=== PATIENT | male | born 1965 | race African-American/Black ===

== ENCOUNTER 2017-02-20 22:51 | Inpatient (IN) | payer OTHER ==
--- NOTE | 2017-02-20 23:34 | ER Document Report ---
ED General <JANUSZ PEÑALOZA - Last Filed: 02/21/17 08:05> - General TRAVEL OUTSIDE OF THE [place] IN LAST 30 DAYS: No <MAITE BARNES - Last Filed: 02/21/17 19:01> - General Chief Complaint: Abnormal Lab Results Stated Complaint: POSSIBLE LOW POTASSIUM Time Seen by Provider: 02/20/17 23:14 Notes: Patient is a 52-year-old male who comes emergency department for chief complaint of low potassium, he states he was seen by his provider today, they called him and told him to come the emergency department. He states he has had over a week of daily diarrhea, sometimes up to 10 times a day. He takes no daily medications other than as needed medications for asthma. He denies any recent travel, fever, sick contacts, suspicious foods, or recent antibiotics. He states he was given amoxicillin today to begin taking for his diarrhea. He has had a colonoscopy in the past which was normal. (MAITE BARNES) - Related Data Allergies/Adverse Reactions: Sulfa (Sulfonamide Antibiotics) Allergy (Verified 07/19/14 16:24) Generalized rash Home Medications: Current Home Medications Albuterol Sulfate [Ventolin HFA MDI 18 GM] 2 puff IH Q4HP PRN 02/21/17 [History] Pantoprazole Sodium [Protonix] 40 mg PO DAILY 02/21/17 [History] Past Medical History - General Information source: Patient - Social History Smoking Status: Current Every Day Smoker Frequency of alcohol use: Occasional Lives with: Family Family History: None Pulmonary Medical History: Reports: Hx Asthma, Hx Bronchitis, Hx COPD, Hx Pneumonia Neurological Medical History: Denies: Hx Cerebrovascular Accident Endocrine Medical History: Denies: Hx Diabetes Mellitus Type 1, Hx Diabetes Mellitus Type 2 Renal/ Medical History: Denies: Hx Peritoneal Dialysis Infectious Medical History: Reports: Hx MRSA Past Surgical History: Reports: Hx Orthopedic Surgery - right knee - Immunizations Hx Diphtheria, Pertussis, Tetanus Vaccination: Yes <MAITE BARNES - Last Filed: 02/21/17 19:01> Review of Systems - Review of Systems Constitutional: No symptoms reported EENT: No symptoms reported Cardiovascular: No symptoms reported Respiratory: No symptoms reported Gastrointestinal: See HPI Genitourinary: No symptoms reported Male Genitourinary: No symptoms reported Musculoskeletal: No symptoms reported Skin: No symptoms reported Hematologic/Lymphatic: No symptoms reported Neurological/Psychological: No symptoms reported <MAITE BARNES - Last Filed: 02/21/17 19:01> Physical Exam - Vital signs Interpretation: Normal - General General appearance: Appears well, Alert In distress: None - Patient thin and slightly tired in appearance, however he is in no distress - HEENT Head: Normocephalic, Atraumatic Eyes: Normal Conjunctiva: Normal Extraocular movements intact: Yes Eyelashes: Normal Pupils: PERRL Sinus: Normal Nasal: Normal Mouth/Lips: Normal Mucous membranes: Normal Pharynx: Normal Neck: Normal - Respiratory Respiratory status: No respiratory distress Chest status: Nontender Breath sounds: Normal. No: Decreased air movement, Wheezing Chest palpation: Normal - Cardiovascular Rhythm: Regular. No: Tachycardia Heart sounds: Normal auscultation, S1 appreciated, S2 appreciated Murmur: No - Abdominal Inspection: Normal Distension: No distension Bowel sounds: Normal Tenderness: Nontender. No: Tender, Guarding - Abdomen is completely soft and benign, no rigidity, no tenderness, no guarding Organomegaly: No organomegaly - Back Back: Normal, Nontender. No: Tender, CVA tenderness - Extremities General upper extremity: Normal inspection, Nontender, Normal color, Normal ROM , Normal temperature General lower extremity: Normal inspection, Nontender, Normal color, Normal ROM , Normal temperature, Normal weight bearing. 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 Sensory: Normal - Psychological Associated symptoms: Normal affect, Normal mood - Skin Skin Temperature: Warm Skin Moisture: Dry Skin Color: Normal <MAITE BARNES - Last Filed: 02/21/17 19:01> - Vital signs Vitals: Temp Pulse Resp BP Pulse Ox 97.5 F 93 18 107/67 93 02/20/17 22:59 02/20/17 22:59 02/20/17 22:59 02/20/17 22:59 02/20/17 22:59 Course - Laboratory Result Diagrams: 02/21/17 00:10 02/21/17 00:10 <JANUSZ PEÑALOZA - Last Filed: 02/21/17 08:05> - Laboratory Result Diagrams: 02/21/17 00:10 02/21/17 16:26 <MAITE BARNES - Last Filed: 02/21/17 19:01> - Re-evaluation Re-evalutation: Patient has already had diarrhea twice after arriving here. CBC unremarkable, shows chronic anemia which is nonspecific. Chemistry is significant, shows hypokalemia at 1.9, hypocalcemia at 6.4, hypomagnesemia at 1.3. Patient will be given each, starting with magnesium. Patient able to give stool sample, unremarkable with no evidence of inflammatory diarrhea, negative C. difficile. Culture pending. Discussed with Dr. Paredes, confirmed treatments, recommends admission for continued electrolyte replacement especially with patient's ongoing diarrhea. Patient in agreement with this plan. 02/21/17 06:[address] Peñaloza at bedside. (MAITE BARNES) - Vital Signs Vital signs: Temp Pulse Resp BP Pulse Ox 98.2 F 78 18 98/67 L 98 02/21/17 15:49 02/21/17 15:49 02/21/17 15:49 02/21/17 15:49 02/21/17 15:49 - Laboratory Laboratory results interpreted by me: 02/21/17 02/21/17 00:10 00:10 RBC 3.41 L Hgb 10.0 L Hct 31.0 L RDW 15.3 H Sodium 135.7 L Potassium 1.9 L* Calcium 6.9 L* Magnesium 1.3 L Total Protein 4.1 L Albumin 2.4 L Discharge - Discharge Admitting Provider: Hospitalist - [facility] Unit Admitted: Telemetry <JANUSZ PEÑALOZA - Last Filed: 02/21/17 08:05> - Discharge Admitting Provider: Hospitalist Unit Admitted: Telemetry <MAITE BARNES - Last Filed: 02/21/17 19:01> - Discharge Clinical Impression: Hypokalemia, Hypomagnesemia Diarrhea Qualifiers: Diarrhea type: unspecified type Qualified Code(s): R19.7 - Diarrhea, unspecified Condition: Stable Disposition: ADMITTED INPATIENT
[2017-02-21 00:26] LABS: ABSOLUTE LYMPHOCYTES (AUTO) 1.2 10^3/uL (0.5-4.7); ABSOLUTE MONOCYTES (AUTO) 0.4 10^3/uL (0.1-1.4); ABSOLUTE NEUT (AUTO) 4.3 10^3/uL (1.7-8.2); BASOPHILS % (AUTO) 0.4 % (0-2); EOSINOPHILS % (AUTO) 0.3 % (0-6); LYMPHOCYTES % (AUTO) 20.2 % (13-45); MEAN CORPUSCULAR HEMOGLOBIN 29.3 pg (27.0-33.4); MEAN CORPUSCULAR HGB CONC 32.2 g/dL (32.0-36.0); MEAN CORPUSCULAR VOLUME 91 fl (80-97); MONOCYTES % (AUTO) 7.4 % (3-13); RED BLOOD COUNT 3.41 10^6/uL (4.35-5.55); RED CELL DISTRIBUTION WIDTH 15.3 % (11.5-14.0); SEGMENTED NEUTROPHILS % (AUTO) 71.7 % (42-78); WHITE BLOOD COUNT 5.9 10^3/uL (4.0-10.5)
[2017-02-21 00:40] LABS: ALANINE AMINOTRANSFERASE 59 U/L (21-72); ALBUMIN 2.4 g/dL (3.5-5.0); ALKALINE PHOSPHATASE 89 U/L (38-126); ANION GAP 8 (5-19); ASPARTATE AMINO TRANSFERASE 33 U/L (17-59); BILIRUBIN,DIRECT 0.2 mg/dL (0.0-0.4); BILIRUBIN,TOTAL 0.5 mg/dL (0.2-1.3); BLOOD UREA NITROGEN 10 mg/dL (7-20); CARBON DIOXIDE 27 mmol/L (22-30); CHLORIDE 101 mmol/L (98-107); CREATININE RESULT 0.59 mg/dL (0.52-1.25); GLUCOSE 94 mg/dL (75-110); MAGNESIUM 1.3 mg/dL (1.6-2.3); SODIUM 135.7 mmol/L (137-145); TOTAL PROTEIN 4.1 g/dL (6.3-8.2)
[2017-02-21 00:57] LABS: CALCIUM 6.9 mg/dL (8.4-10.2); POTASSIUM 1.9 mmol/L (3.6-5.0)
[2017-02-21] MEDS: MAGNESIUM SULFATE/D5W 100 ML IV SCH ×2 (01:11→01:29)
[2017-02-21] MEDS ORDERED: CALCIUM GLUCONATE 1000 MG/10 ML INJ IV ONE (01:37)
[2017-02-21] MEDS: POTASSI CL 20 MEQ/50 ML RIDER 50 ML IV SCH ×2 (01:48→04:03)
[2017-02-21] MEDS ORDERED: POTASSIUM CHLORIDE 10 MEQ TABLET.SA PO ONE (06:10)
--- NOTE | 2017-02-21 08:08 | EKG REPORT ---
SEVERITY:- BORDERLINE ECG - SINUS RHYTHM BORDERLINE T ABNORMALITIES, DIFFUSE LEADS PROLONGED QT INTERVAL. : Confirmed by: Clinton Resendez MD 21-Feb-2017 08:07:55
[2017-02-21] MEDS ORDERED: ACETAMINOPHEN 325 MG TABLET PO PRN (08:23)
[2017-02-21] MEDS ORDERED: RINGERS SOLUTION,LACTATED 1,000 ML IV PRN (08:23)
[2017-02-21] MEDS ORDERED: ONDANSETRON HCL INJ/PF 4 MG/2 ML SDV IV PRN (08:23)
[2017-02-21 09:16] LABS: ANION GAP 5 (5-19); BLOOD UREA NITROGEN 9 mg/dL (7-20); CALCIUM 7.2 mg/dL (8.4-10.2); CARBON DIOXIDE 30 mmol/L (22-30); CHLORIDE 102 mmol/L (98-107); CREATINE KINASE 77 U/L (55-170); CREATININE RESULT 0.68 mg/dL (0.52-1.25); GLUCOSE 71 mg/dL (75-110); LIPASE 13.2 U/L (23-300); PHOSPHORUS 1.7 mg/dL (2.5-4.5); SODIUM 136.7 mmol/L (137-145)
[2017-02-21 09:18] LABS: AMYLASE < 30 U/L (30-110)
[2017-02-21 09:23] LABS: PREALBUMIN 7.3 mg/dL (17.6-36.0)
[2017-02-21 09:29] LABS: PROTHROMBIN TIME 13.5 SEC (11.4-15.4)
[2017-02-21 09:30] LABS: PARTIAL THROMBOPLASTIN TIME 38.4 SEC (23.5-35.8)
[2017-02-21] MEDS: ENOXAPARIN SODIUM INJ 40 MG/0.4 ML DISP.SYRIN SUBCUT SCH (09:40)
[2017-02-21 09:43] LABS: POTASSIUM 2.3 mmol/L (3.6-5.0)
[2017-02-21 10:24] LABS: FOLATE 4.24 ng/mL (>2.76)
[2017-02-21] MEDS ORDERED: POTASSIUM PHOS,M-BASIC-D-BASIC 15 MMOL in NORMAL SALINE 250 ML IV ONE (11:30)
[2017-02-21] MEDS: POTASSI CL 20 MEQ/50 ML RIDER 20 MEQ/50 ML RTUPB IV SCH ×2 (13:28→16:23)
--- NOTE | 2017-02-21 14:45 | PDOC H&P ---
History of Present Illness Admission Date/PCP: 02/21/17 08:23 Patient complains of: weakness History of Present Illness: AMERICA ANDERSON is a 52 year old male presents to the ED from home at the [facility] when his recent blood work came back abnormal with a critically low potassium level. 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 He underwent upper and lower endoscopy earlier this year to evaluate these symptoms but other than a benign polyp no abnl found He's had no sick contacts, incarceration, hemoptysis, melena, hematochezia, night sweats, swollen glands. says he was tested for HIV, Hepatitis and TB and all came back negative. He is undergoing continued evaluation for all this via the [facility] with upcoming referrals and consultations next week. eval in ED confirmed severe electrolyte abnl's and we were asked to admit for further eval and management. He would prefer to let the [facility] continue to finish the workup if we would just fix the lab abnl's. Past Medical History Pulmonary Medical History: Reports: Asthma, Bronchitis, Chronic Obstructive Pulmonary Disease (COPD), Pneumonia Endocrine Medical History: Denies: Diabetes Mellitus Type 1, Diabetes Mellitus Type 2 Psychiatric Medical History: Denies: Depression Infectious Medical History: Reports: Methicillin-Resistant Staph Aureus Past Surgical History Past Surgical History: Reports: Orthopedic Surgery - right knee Social History Information Source: Patient Lives with: Family Smoking Status: Former Smoker Cigarettes Packs Per Day: 0 Cigars Per Day: 0 Frequency of Alcohol Use: None Hx Recreational Drug Use: Yes Drugs: Marijuana Hx Prescription Drug Abuse: No - Advance Directive Resuscitation Status: Full Code Family History Family History: None, DM Parental Family History Reviewed: Yes Children Family History Reviewed: Yes Sibling(s) Family History Reviewed.: Yes Medication/Allergy Home Medications: Albuterol Sulfate [Ventolin HFA MDI 18 GM] 2 puff IH Q4HP PRN 02/21/17 Pantoprazole Sodium [Protonix] 40 mg PO DAILY 02/21/17 Allergies/Adverse Reactions: Sulfa (Sulfonamide Antibiotics) Allergy (Verified 07/19/14 16:24) Generalized rash Review of Systems All systems: reviewed and no additional remarkable complaints except as stated - all systems reviewed, see HPI, remaining systems negative Physical Exam Vital Signs: Temp Pulse Resp BP Pulse Ox 97.7 F 74 15 98/70 L 99 02/21/17 12:13 02/21/17 14:00 02/21/17 12:13 02/21/17 12:13 02/21/17 12:13 Intake & Output 02/20/17 02/21/17 02/22/17 06:59 06:59 06:59 Weight 52.617 kg General appearance: PRESENT: thin, well-developed Head exam: PRESENT: atraumatic, normocephalic Eye exam: PRESENT: EOMI. ABSENT: conjunctival injection, scleral icterus Teeth exam: PRESENT: poor dentation Neck exam: PRESENT: full ROM. ABSENT: carotid bruit, JVD, lymphadenopathy, meningismus, tenderness, thyromegaly, tracheal deviation Respiratory exam: PRESENT: clear to auscultation jackelyn. ABSENT: accessory muscle use, unlabored Cardiovascular exam: PRESENT: RRR. ABSENT: diastolic murmur, systolic murmur Pulses: PRESENT: normal radial pulses, normal dorsalis pedis pul Vascular exam: PRESENT: normal capillary refill GI/Abdominal exam: PRESENT: normal bowel sounds, soft. ABSENT: mass, organolmegaly, tenderness Extremities exam: PRESENT: clubbing. ABSENT: calf tenderness, pedal edema Neurological exam: PRESENT: alert, awake, oriented to person, oriented to place , oriented to time, oriented to situation, reflexes normal Psychiatric exam: PRESENT: appropriate affect, normal mood Skin exam: PRESENT: dry, warm Results Laboratory Results: 02/21/17 08:47 02/21/17 02/21/17 08:47 08:47 Sodium 136.7 L Potassium 2.3 L* Chloride 102 Carbon Dioxide 30 Anion Gap 5 BUN 9 Creatinine 0.68 Est GFR ( Amer) > 60 Est GFR (Non-Af Amer) > 60 Glucose 71 L Calcium 7.2 L Phosphorus 1.7 L Prealbumin 7.3 L Amylase < 30 L Lipase 13.2 L Vitamin B12 > 1000.0 H Folate 4.24 TSH 1.02 02/21/17 08:47 Creatine Kinase 77 Assessment & Plan - Diagnosis (1) Diarrhea Qualifiers: Diarrhea type: unspecified type Qualified Code(s): R19.7 - Diarrhea, unspecified Is this a current diagnosis for this admission?: YesPlan: unclear etiology; f/u stool culture; ck am cortisol level, screen for DM, thyroid disease (2) Hypokalemia Is this a current diagnosis for this admission?: YesPlan: aggressively replenish and monitor frequently (3) Hypomagnesemia Is this a current diagnosis for this admission?: YesPlan: replace and monitor - Time Time Spent: 50 to 70 Minutes Medications reviewed and adjusted accordingly: Yes Anticipated discharge: Home Within: within 48 hours - Inpatient Certification Based on my medical assessment, after consideration of the patient's comorbidities, presenting symptoms, or acuity I expect that the services needed warrant INPATIENT care.: Yes I certify that my determination is in accordance with my understanding of Medicare's requirements for reasonable and necessary INPATIENT services [42 CFR 412.3e].: Yes Medical Necessity: Significant Comorbidiites Make Outpatient Treatment Too Risky , Need Close Monitoring Due to Risk of Patient Decompensation, Need For IV Fluids, Need For Continuous Telemetry Monitoring
[2017-02-21] MEDS: LANSOPRAZOLE 30 MG TAB.RAP.DR PO SCH (16:23)
[2017-02-21 16:54] LABS: ANION GAP 6 (5-19); BLOOD UREA NITROGEN 8 mg/dL (7-20); CALCIUM 7.1 mg/dL (8.4-10.2); CARBON DIOXIDE 26 mmol/L (22-30); CHLORIDE 104 mmol/L (98-107); CREATININE RESULT 0.59 mg/dL (0.52-1.25); GLUCOSE 80 mg/dL (75-110); SODIUM 135.7 mmol/L (137-145)
[2017-02-21 16:59] LABS: POTASSIUM 2.7 mmol/L (3.6-5.0)
[2017-02-21] MEDS: POTASSIUM CHLORIDE 10 MEQ TABLET.SA PO SCH (21:08)
[2017-02-21 23:12] LABS: ANION GAP 7 (5-19); BLOOD UREA NITROGEN 8 mg/dL (7-20); CALCIUM 7.4 mg/dL (8.4-10.2); CARBON DIOXIDE 28 mmol/L (22-30); CHLORIDE 101 mmol/L (98-107); CREATININE RESULT 0.61 mg/dL (0.52-1.25); GLUCOSE 89 mg/dL (75-110)
[2017-02-21 23:15] LABS: POTASSIUM 2.8 mmol/L (3.6-5.0)
[2017-02-21 23:27] LABS: ADD ON TESTING BLD IN LAB ACKNOWLEDGE
[2017-02-21 23:39] LABS: MAGNESIUM 1.8 mg/dL (1.6-2.3)
[2017-02-22] MEDS: POTASSIUM CHLORIDE 20 MEQ/15 ML UDCUP PO SCH ×4 (00:08→06:07)
[2017-02-22 05:38] LABS: HEMATOCRIT 38.6 % (37.9-51.0); HGB HCT DIFFERENCE -0.8; MEAN CORPUSCULAR HEMOGLOBIN 29.7 pg (27.0-33.4); MEAN CORPUSCULAR HGB CONC 32.5 g/dL (32.0-36.0); MEAN CORPUSCULAR VOLUME 91 fl (80-97); RED BLOOD COUNT 4.23 10^6/uL (4.35-5.55); RED CELL DISTRIBUTION WIDTH 15.9 % (11.5-14.0); WHITE BLOOD COUNT 10.7 10^3/uL (4.0-10.5)
[2017-02-22 05:39] LABS: ANION GAP 9 (5-19); BLOOD UREA NITROGEN 7 mg/dL (7-20); CALCIUM 7.6 mg/dL (8.4-10.2); CARBON DIOXIDE 25 mmol/L (22-30); CHLORIDE 105 mmol/L (98-107); CHOLESTEROL 69.61 mg/dL (0-200); CREATININE RESULT 0.58 mg/dL (0.52-1.25); Direct HDL 34 mg/dL (>40); GLUCOSE 83 mg/dL (75-110); HEMOGLOBIN 12.6 g/dL (13.5-17.0); MAGNESIUM 1.8 mg/dL (1.6-2.3); SODIUM 138.6 mmol/L (137-145); TRIGLYCERIDES 68 mg/dL (<150)
[2017-02-22 05:50] LABS: DIRECT LDL 35 mg/dL (<100)
[2017-02-22 06:02] LABS: POTASSIUM 3.7 mmol/L (3.6-5.0)
[2017-02-22] MEDS: LANSOPRAZOLE 30 MG TAB.RAP.DR PO SCH (06:07)
[2017-02-22] MEDS ORDERED: RINGERS SOLUTION,LACTATED 1,000 ML IV ONE (08:00)
[2017-02-22 09:09] VITALS: BP 104/63
[2017-02-22] MEDS ORDERED: MAGNESIUM OXIDE 400 MG TABLET PO SCH (10:00)
[2017-02-22] MEDS: POTASSIUM CHLORIDE 10 MEQ TABLET.SA PO SCH (10:55)
[2017-02-22] MEDS: ENOXAPARIN SODIUM INJ 40 MG/0.4 ML DISP.SYRIN SUBCUT SCH (11:24)
--- NOTE | 2017-02-22 12:21 | PDOC DISCHARGE SUMMARY ---
General - Admit/Disc Date/PCP Admission Date/Primary Care Provider: 02/21/17 08:23 Discharge Date: 02/22/17 - Discharge Diagnosis (1) Diarrhea Is this a current diagnosis for this admission?: YesSummary: persists and etiology is unclear; final stool culture is pending but initially nothing on Gm stain seen. workup already underway through the [facility] where he would like to allow them to take the lead in this. I recommended psyllium powder to slow his GI losses and f/u with GI as instructed next week. (2) Hypokalemia Is this a current diagnosis for this admission?: YesSummary: profound but resolved with replacement and 2/2 GI losses; Rx given for replacement, instructed to f/u /with PCP in one week for repeat testing (3) Hypomagnesemia Is this a current diagnosis for this admission?: YesSummary: severe and 2/2 GI losses, instructed to continue oral replacment and f/u with PCP in one week for repeat testing - Additional Information Resuscitation Status: Full Code Discharge Diet: As Tolerated Discharge Activity: Activity As Tolerated Home Medications: Albuterol Sulfate [Ventolin HFA MDI 18 GM] 2 puff IH Q4HP PRN 02/21/17 Pantoprazole Sodium [Protonix] 40 mg PO DAILY 02/21/17 Acetaminophen [Tylenol 325 mg Tablet] 650 mg PO Q4HP PRN tablet 02/22/17 Magnesium Oxide [Mag-Ox 400 mg Tablet] 400 mg PO BID tablet 02/22/17 Potassium Chloride [Klor-Con 10 Meq Tablet.sa] 40 meq PO Q12 30 Days 02/22/17 Psyllium Husk 1 gm MC BIDACBL #1 powder 02/22/17 History of Present Illness Patient complains of: weakness and abnormal labs History of Present Illness: AMERICA ANDERSON is a 52 year old male presents to the ED from home at the [facility] when his recent blood work came back abnormal with a critically low potassium level. 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 He underwent upper and lower endoscopy earlier this year to evaluate these symptoms but other than a benign polyp no abnl found He's had no sick contacts, incarceration, hemoptysis, melena, hematochezia, night sweats, swollen glands. says he was tested for HIV, Hepatitis and TB and all came back negative. [facility] with upcoming referrals and consultations next week. eval in ED confirmed severe electrolyte abnl's and we were asked to admit for further eval and management. [facility] if we would just fix the lab abnl's. he was admitted with aggressive IV and oral replenishment of his electrolytes which he tolerated without complication. He feels significantly better this morning and his lytes have rapidly improved and stabilized surprising even me. I think he can maintain these levels at home now with oral replacement and he wants to go home. He is stable for d/c at this time. His stool culture is still pending, cdiff was neg, initial stool Gm stain shows no pathogen and no leukocytes, heme negative, Hep ABC still pending, HIV screen pending. [facility], has stool cards and collectors at home due to return early next week and already has [facility]. he is to return to the ED for recurernt or worsening symptoms. Physical Exam Vital Signs: Temp Pulse Resp BP Pulse Ox 98.0 F 87 17 104/63 100 02/22/17 10:21 02/22/17 10:21 02/22/17 10:21 02/22/17 10:21 02/22/17 10:21 Intake & Output 02/21/17 02/22/17 02/23/17 06:59 06:59 06:59 Intake Total 3590 Output Total 300 Balance 3290 Weight 61.4 kg General appearance: PRESENT: thin, well-developed Head exam: PRESENT: atraumatic, normocephalic Eye exam: PRESENT: EOMI. ABSENT: conjunctival injection, scleral icterus Teeth exam: PRESENT: poor dentation Neck exam: PRESENT: full ROM. ABSENT: carotid bruit, JVD, lymphadenopathy, meningismus, tenderness, thyromegaly, tracheal deviation Respiratory exam: PRESENT: clear to auscultation jackelyn. ABSENT: accessory muscle use, unlabored Cardiovascular exam: PRESENT: RRR. ABSENT: diastolic murmur, systolic murmur Pulses: PRESENT: normal radial pulses, normal dorsalis pedis pul Vascular exam: PRESENT: normal capillary refill GI/Abdominal exam: PRESENT: normal bowel sounds, soft. ABSENT: mass, organolmegaly, tenderness Extremities exam: PRESENT: clubbing. ABSENT: calf tenderness, pedal edema Neurological exam: PRESENT: alert, awake, oriented to person, oriented to place , oriented to time, oriented to situation, reflexes normal Psychiatric exam: PRESENT: appropriate affect, normal mood Skin exam: PRESENT: dry, warm Results Laboratory Results: 02/22/17 04:53 02/22/17 04:53 02/21/17 02/21/17 02/21/17 16:26 22:48 22:48 WBC RBC Hgb Hct MCV MCH MCHC RDW Plt Count Sodium 135.7 L 136.0 L Potassium 2.7 L* 2.8 L* Chloride 104 101 Carbon Dioxide 26 28 Anion Gap 6 7 BUN 8 8 Creatinine 0.59 0.61 Est GFR ( Amer) > 60 > 60 Est GFR (Non-Af Amer) > 60 > 60 Glucose 80 89 Calcium 7.1 L 7.4 L Magnesium 1.8 Triglycerides Cholesterol LDL Cholesterol Direct VLDL Cholesterol HDL Cholesterol 02/22/17 02/22/17 04:53 04:53 WBC 10.7 H RBC 4.23 L Hgb 12.6 L D Hct 38.6 MCV 91 MCH 29.7 MCHC 32.5 RDW 15.9 H Plt Count 205 Sodium 138.6 Potassium 3.7 Chloride 105 Carbon Dioxide 25 Anion Gap 9 BUN 7 Creatinine 0.58 Est GFR ( Amer) > 60 Est GFR (Non-Af Amer) > 60 Glucose 83 Calcium 7.6 L Magnesium 1.8 Triglycerides 68 Cholesterol 69.61 LDL Cholesterol Direct 35 VLDL Cholesterol 14.0 HDL Cholesterol 34 L 02/21/17 08:47 Creatine Kinase 77 Qualifiers PATEINT BEING DISCHARGED WITH ANY OF THE FOLLOWING DIAGNOSIS?: No VTE patient discharged on overlapping Therapy?: No Reason(s) for not prescribing Overlap Therapy:: Not indicated Plan Discharge Plan: home with continue oral replacement of his lytes; start psyllium powder and monitor for response. f/u as instructed. Time Spent: Greater than 30 Minutes
== END 2017-02-22 12:10 | disposition home or self-care (01) | DRG 373 ==
LOC: ER 22:51 → EH 02-21 08:12 → UNDOADMIN 02-21 08:12 → 4S 02-21 08:23 → EH 02-21 09:20
PROVIDERS: ADMIT Internal Medicine; ATTEND Internal Medicine
DX: A04.5 Campylobacter enteritis (principal); E87.6 Hypokalemia; J44.9 Chronic obstructive pulmonary disease, unspecified; J45.909 Unspecified asthma, uncomplicated; E83.42 Hypomagnesemia; Z86.14 Personal history of Methicillin resistant Staphylococcus aureus infection; Z87.891 Personal history of nicotine dependence; Z83.3 Family history of diabetes mellitus; Z88.2 Allergy status to sulfonamides
CPT/HCPCS: 36415; 80048; 80053; 80061; 80074; 82150; 82272; 82533; 82550; 82607; 82746; 83036; 83690; 83735; 84100; 84134; 84443; 85025; 85027; 85610; 85730; 86701; 86702; 87045; 87077; 87205; 87493; 89055; 93005; 93010; 96365; 96366; 96367; 96375; 99284; J0610; J1650; J3475; J3480; J3490; J7050; J7120

== ENCOUNTER → 2017-04-08 | Outpatient (CLI) | payer OTHER ==
--- NOTE | 2017-04-08 15:06 | XCELERA REPORT ---
[address] [address] Lower Extremity Arterial Evaluation Name: AMERICA ANDERSON Age: 52 yrs Gender: Male : 1965 Patient Status: Outpatient Patient Location: Study Date: 04/08/2017 08:06 AM Procedure: A color flow and duplex scan of the lower extremity arteries was performed bilaterally with velocity and waveform analysis. Reason For Study: PAIN Ordering Physician: IZZY REDMAN Performed By: Ramsey Jacome Measurements and Calculations Right Left TOOL AND DIE ASSEMBLER PSV 70.2 46.2 cm/sec Prox PFA PSV -273.4 -133.6 cm/sec Dist SFA PSV -62.9 -49.9 cm/sec Dist Pop A PSV 40.5 36.0 cm/sec Dist ANNALISA PSV 36.8 36.2 cm/sec Dist COMPLIANCE MANAGER PSV 39.3 39.3 cm/sec Spencer Pedis PSV 44.0 35.4 cm/sec Right Side Arterial Evaluation Normal velocity and triphasic waveforms noted from the Common Femoral artery to the infregeniculate vessels. 0 % stenosis noted. Ankle Brachial index is 1.04. PPG's are multiphasic, somewhat attenuated, especially in first digit. Left Side Arterial Evaluation Normal velocity and triphasic waveforms noted from the Common Femoral artery to the infregeniculate vessels. 0 % stenosis noted. Ankle Brachial index is 1.20. PPG's are multiphasic, somewhat attenuated, especially in first three digits. Interpretation Summary No hemodynamically significant lesions in the bilateral lower extremities, on duplex imaging, at rest. PPG's are somewhat abnormal, this would require clinical correlation. : IZZY REDMAN > Vahid Douglas
== END ==
LOC: SP 07:44
PROVIDERS: ATTEND Physician Assistant Medical
DX: M79.671 Pain in right foot (principal); M79.672 Pain in left foot; R20.0 Anesthesia of skin
CPT/HCPCS: 93925

== ENCOUNTER 2017-11-24 09:32 | Emergency (ER) | payer OTHER ==
[2017-11-24] MEDS ORDERED: NORMAL SALINE 1000 ML 1,000 ML IV ONE (10:23)
--- NOTE | 2017-11-24 10:29 | ER Document Report ---
ED GI/ - General Chief Complaint: Abdominal Pain Stated Complaint: ABDOMINAL PAIN Time Seen by Provider: 11/24/17 10:12 Mode of Arrival: Ambulatory Information source: Patient Notes: 52-year-old male presents to ED for complaint of abdominal pain since Friday or Friday. He states he has had nausea vomiting and diarrhea. He states no vomiting today but he has been vomiting. He states he has been having multiple diarrhea stools each night. Common variable immune deficiency disorder TRAVEL OUTSIDE OF THE [place] IN LAST 30 DAYS: No - HPI Patient complains to provider of: Abdominal pain, Diarrhea, Vomiting Onset: Last week Timing/Duration: Intermittent Quality of pain: Achy, Sharp Severity at maximum: Moderate Severity in ED: Moderate Pain Level: 3 Location: LUQ, LLQ Associated symptoms: Diarrhea, Nausea Exacerbated by: Movement, Food Relieved by: Denies Similar symptoms previously: Yes Recently seen / treated by doctor: No - Related Data Allergies/Adverse Reactions: Sulfa (Sulfonamide Antibiotics) Allergy (Verified 11/24/17 09:33) Generalized rash Past Medical History - General Information source: Patient - Social History Smoking Status: Former Smoker Cigarette use (# per day): No Chew tobacco use (# tins/day): No Smoking Education Provided: No Frequency of alcohol use: None Drug Abuse: None Lives with: Family - Brother Family History: DM, Hypertension. denies: Arthritis, CAD, COPD, CVA, Hyperlipidemia, Malignancy, Thyroid Disfunction Patient has suicidal ideation: No Patient has homicidal ideation: No - Medical History Medical History: Other - Common variable immune deficiency disorder Pulmonary Medical History: Reports: Hx Asthma, Hx Bronchitis, Hx COPD, Hx Pneumonia EENT Medical History: Reports: None Neurological Medical History: Reports: None Endocrine Medical History: Reports: None Renal/ Medical History: Reports: None Malignancy Medical History: Reports None GI Medical History: Reports: None Musculoskeltal Medical History: Reports Hx Arthritis - Septic arthritis right knee Skin Medical History: Reports Hx MRSA Traumatic Medical History: Reports: None Infectious Medical History: Reports: Hx MRSA Past Surgical History: Reports: Hx Orthopedic Surgery - right knee septic arthritis - Immunizations Hx Diphtheria, Pertussis, Tetanus Vaccination: Yes Review of Systems - Review of Systems Constitutional: Recent illness EENT: No symptoms reported Cardiovascular: No symptoms reported Respiratory: No symptoms reported Gastrointestinal: Abdominal pain, Diarrhea, Nausea, Vomiting - No vomiting today Genitourinary: No symptoms reported Male Genitourinary: No symptoms reported Musculoskeletal: No symptoms reported Skin: No symptoms reported Hematologic/Lymphatic: No symptoms reported Neurological/Psychological: No symptoms reported -: Yes All other systems reviewed and negative Physical Exam - Vital signs Vitals: Temp Pulse Resp BP Pulse Ox 97.9 F 105 H 18 102/76 94 11/24/17 09:39 11/24/17 09:39 11/24/17 09:39 11/24/17 09:39 11/24/17 09:39 Interpretation: Normal - General General appearance: Appears well, Alert - HEENT Head: Normocephalic, Atraumatic Eyes: Normal Pupils: PERRL - Respiratory Respiratory status: No respiratory distress Chest status: Nontender Breath sounds: Normal Chest palpation: Normal - Cardiovascular Rhythm: Regular Heart sounds: Normal auscultation Murmur: No - Abdominal Inspection: Normal Distension: No distension Bowel sounds: Hyperactive Tenderness: Tender - Left upper and lower abdomen Organomegaly: No organomegaly - Back Back: Normal, Nontender - Extremities General upper extremity: Normal inspection, Nontender, Normal color, Normal ROM , Normal temperature General lower extremity: Normal inspection, Nontender, Normal color, Normal ROM , Normal temperature, Normal weight bearing. No: Steven's sign - Neurological Neuro grossly intact: Yes Cognition: Normal Orientation: AAOx4 [place] Coma Scale Eye Opening: Spontaneous [place] Coma Scale Verbal: Oriented [place] Coma Scale Motor: Obeys Commands [place] Coma Scale Total: 15 Speech: Normal Motor strength normal: LUE, RUE, LLE, RLE Sensory: Normal - Psychological Associated symptoms: Normal affect, Normal mood - Skin Skin Temperature: Warm Skin Moisture: Dry Skin Color: Normal Course - Re-evaluation Re-evalutation: 11/24/17 15:[address] Jones patient was discharged home with antibiotics for his pneumonia. His abdomen is soft nontender at this time he states that the pain is actually much better than it was. He will be taking a Z -Aniceto for his pneumonia and follow-up with his primary doctor. Patient verbalized understanding and agreement with treatment plan. - Vital Signs Vital signs: Temp Pulse Resp BP Pulse Ox 98.9 F 92 18 108/65 100 11/24/17 15:47 11/24/17 15:47 11/24/17 15:47 11/24/17 15:47 11/24/17 15:47 - Laboratory Result Diagrams: 11/24/17 10:52 11/24/17 10:52 Laboratory results interpreted by me: 11/24/17 11/24/17 10:52 10:52 RBC 4.34 L Hgb 13.1 L RDW 16.4 H Potassium 3.3 L Total Bilirubin 0.1 L Total Protein 5.2 L Albumin 3.2 L - Diagnostic Test Radiology reviewed: Image reviewed, Reports reviewed Discharge - Discharge Clinical Impression: Nausea, vomiting and diarrhea Abdominal pain Qualifiers: Abdominal location: left upper quadrant Qualified Code(s): R10.12 - Left upper quadrant pain Pneumonia Qualifiers: Pneumonia type: due to unspecified organism Laterality: bilateral Lung location : unspecified part of lung Qualified Code(s): J18.9 - Pneumonia, unspecified organism Condition: Stable Disposition: HOME, SELF-CARE Instructions: Family Physicians / Practices Additional Instructions: ABDOMINAL PAIN: There are many causes of abdominal pain. Pain can mean a serious problem requiring surgery (such as appendicitis). It can also be an innocent problem that goes away on its own (such as a viral infection). Often, time must pass to determine the cause of pain. The physician does not feel that hospitalization is necessary, at present. Things may change within the next 24 hours. Call the doctor or come back for re- examination if any problems occur, such as: (1) Pain that becomes more severe, steady, or becomes concentrated in one specific area. Also, pain that is more severe with movement or coughing. (2) Vomiting that persists or becomes more frequent. (3) Blood in the vomitus, urine, or bowel movements. Blood in the stool may have a tarry or black appearance. (4) Shaking chills or fever greater than 100 degrees F. (5) The abdomen becomes more distended or swollen. (6) Bowel movements cease. (7) Failure to improve as expected. PNEUMONIA: Your examination indicates that you have pneumonia. This is an infection of the lung tissue, usually caused by bacteria or a virus. Symptoms include cough, fever, shaking chills, chest pain, shortness of breath, and coughing up bloody sputum. Treatment for bacterial pneumonia includes rest, antibiotics for 10 to 14 days, increasing your clear liquid intake, a cool mist humidifier at your bedside, and fever medication. Often, a repeat chest X-ray is performed in a few weeks--even if you feel better--to ascertain whether the infection has completely resolved and no underlying lung problem is present. You should call the physician if you develop persistent vomiting, high fever that does not respond to fever medication, increasing shortness of breath , confusion, or lethargy. Also, failure to improve within two to three days is an indication for re-examination. AZITHROMYCIN: Azithromycin (Zithromax) is a broad spectrum antibiotic in the same class as erythromycin. It can treat a variety of bacterial infections, but is most frequently used for respiratory infections. Azithromycin is extremely long-lasting. It accumulates in body tissues and continues to kill bacteria for many days. In order to improve absorption, Azithromycin should be taken at least one hour before or two hours after a meal. It does not have the same strong tendency to upset the stomach as erythromycin and is usually very well tolerated. Patients who have had a rash or other true allergic reactions to erythromycin should not take this medication. Call if you develop gastrointestinal distress, severe diarrhea, rash, hives, itching, or shortness of breath. ANTINAUSEA MEDICATION: You have been given a medication to suppress nausea and vomiting. This type of medication can be given as a shot, pill, or suppository. It will usually last for many hours. Pills and shots usually last six to eight hours, suppositories last about 12 hours. For the typical illness, only one or two doses of the medication may be necessary. Mild lightheadedness may occur. This type of medicine can cause drowsiness. Do not drive or operate dangerous machinery while under its influence. Do not mix with alcohol. See your doctor at once if you have muscle spasms or tightness, or uncontrollable motions (particularly of the neck, mouth, or jaw). Persistent vomiting or severe lightheadedness should also be evaluated by the physician. Intravenous (IV) Fluids As part of your care today, you received intravenous (IV) fluids. IV fluids are administered to patients who are dehydrated or to those who have certain chemical (electrolyte) abnormalities that need correcting. FOLLOW-UP CARE: If you have been referred to a physician for follow-up care, call the physician s office for an appointment as you were instructed or within the next two days. If you experience worsening or a significant change in your symptoms, notify the physician immediately or return to the Emergency Department at any time for re-evaluation. Prescriptions: Azithromycin [Zithromax] 250 mg PO ASDIR PRN #6 tablet PRN Reason: Ondansetron [Zofran Odt 4 mg Tablet] 1 tab PO Q6H #15 tab.rapdis
[2017-11-24 11:02] LABS: ABSOLUTE LYMPHOCYTES (AUTO) 1.1 10^3/uL (0.5-4.7); ABSOLUTE MONOCYTES (AUTO) 0.5 10^3/uL (0.1-1.4); ABSOLUTE NEUT (AUTO) 4.3 10^3/uL (1.7-8.2); BASOPHILS % (AUTO) 0.1 % (0-2); EOSINOPHILS % (AUTO) 0.2 % (0-6); HEMATOCRIT 39.2 % (37.9-51.0); HEMOGLOBIN 13.1 g/dL (13.5-17.0); MEAN CORPUSCULAR HEMOGLOBIN 30.1 pg (27.0-33.4); MEAN CORPUSCULAR HGB CONC 33.4 g/dL (32.0-36.0); MEAN CORPUSCULAR VOLUME 90 fl (80-97); MONOCYTES % (AUTO) 8.8 % (3-13); PLATELET COUNT 192 10^3/uL (150-450); RED BLOOD COUNT 4.34 10^6/uL (4.35-5.55); RED CELL DISTRIBUTION WIDTH 16.4 % (11.5-14.0); SEGMENTED NEUTROPHILS % (AUTO) 72.9 % (42-78); TOTAL CELLS COUNTED % (AUTO) 100 %; WHITE BLOOD COUNT 5.9 10^3/uL (4.0-10.5)
[2017-11-24 11:32] LABS: ALANINE AMINOTRANSFERASE 55 U/L (21-72); ALBUMIN 3.2 g/dL (3.5-5.0); ALKALINE PHOSPHATASE 103 U/L (38-126); ANION GAP 9 (5-19); ASPARTATE AMINO TRANSFERASE 32 U/L (17-59); BILIRUBIN,DIRECT 0.1 mg/dL (0.0-0.4); BILIRUBIN,TOTAL 0.1 mg/dL (0.2-1.3); BLOOD UREA NITROGEN 11 mg/dL (7-20); CALCIUM 8.8 mg/dL (8.4-10.2); CARBON DIOXIDE 27 mmol/L (22-30); CHLORIDE 104 mmol/L (98-107); GLUCOSE 89 mg/dL (75-110); POTASSIUM 3.3 mmol/L (3.6-5.0); SODIUM 140.2 mmol/L (137-145); TOTAL PROTEIN 5.2 g/dL (6.3-8.2)
--- NOTE | 2017-11-24 13:22 | RADIOLOGY REPORT (SQ) ---
EXAM DESCRIPTION: CT ABD/PELVIS WITH IV ORAL COMPLETED DATE/TIME: 11/24/2017 1:03 pm REASON FOR STUDY: Left upper and lower abdominal pain COMPARISON: None. TECHNIQUE: CT scan of the abdomen and pelvis performed using helical scanning technique with dynamic intravenous contrast injection. No oral contrast. Images reviewed with lung, soft tissue, and bone windows. Reconstructed coronal and sagittal MPR images reviewed. Delayed images for evaluation of the urinary system also acquired. All images stored on PACS. All CT scanners at this facility use dose modulation, iterative reconstruction, and/or weight based d osing when appropriate to reduce radiation dose to as low as reasonably achievable (ALARA). [facility]: Dose Right [facility]: CareDose [facility]: Dose Right [facility]: Teradose 4D [facility]: Svpply CONTRAST TYPE AND DOSE: contrast/concentration: Isovue 370.00 mg/ml; Total Contrast Delivered: 59.0 ml; Total Saline Delivered: 65.0 ml RENAL FUNCTION: BUN 11 creatinine 0.72. RADIATION DOSE: CT Rad equipment meets quality standard of care and radiation dose reduction techniq ues were employed. CTDIvol: 4.8 - 5.2 mGy. DLP: 541 mGy-cm.. LIMITATIONS: None. FINDINGS: LOWER CHEST: No significant findings. No nodules or infiltrates. LIVER: Normal size. No masses. No dilated ducts. SPLEEN: Normal size. No focal lesions. PANCREAS: No masses. No significant calcifications. No adjacent inflammation or peripancreatic fluid collections. Pancreatic duct not dilated. GALLBLADDER: No identified stones by CT criteria. No inflammatory changes to suggest cholecystitis. ADRENAL GLANDS: No significant masses or asymmetry. RIGHT KIDNEY AND URETER: No solid masses. No significant calcifications. No hydronephrosis or hyd roureter. LEFT KIDNEY AND URETER: No solid masses. No significant calcifications. No hydronephrosis or hydr oureter. AORTA AND VESSELS: No aneurysm. No dissection. Renal arteries, SMA, celiac without stenosis. RETROPERITONEUM: No retroperitoneal adenopathy, hemorrhage or masses. BOWEL AND PERITONEAL CAVITY: Contrast throughout the small bowel which is diffusely dilated. Stool i n the colon. Streaky infiltrate in the right and left lower lobes, worse on the left. No masses or inflammatory changes. No free fluid or peritoneal masses. APPENDIX: Normal. PELVIS: No mass. No free fluid. Normal bladder. ABDOMINAL WALL: No masses. No hernias. BONES: No significant or acute findings. OTHER: No other significant finding. IMPRESSION: 1. STREAKY INFILTRATES IN THE LUNG BASES, WORSE ON THE LEFT. SUSPICIOUS FOR PNEUMONIA. 2. DIFFUSE DILATION THROUGHOUT THE SMALL BOWEL. ILEUS VERSUS DEVELOPING DISTAL SMALL BOWEL OBSTRUCTI ON. 3. NO OTHER SIGNIFICANT FINDINGS. TECHNICAL DOCUMENTATION: JOB ID: [id number] Quality ID # [id number]: Final reports with documentation of one or more dose reduction techniques (e.g., Au tomated exposure control, adjustment of the mA and/or kV according to patient size, use of iterative reconstruction technique) 2010 [employer]- All Rights Reserved Reading location - IP/workstation name: [email or web address]
[2017-11-24 14:11] LABS: APPEARANCE,URINE CLEAR; BILIRUBIN,URINE NEGATIVE (NEGATIVE); COLOR,URINE STRAW; GLUCOSE, URINE NEGATIVE (NEGATIVE); KETONES,URINE NEGATIVE (NEGATIVE); LEUKOCYTE ESTERASE,URINE NEGATIVE (NEGATIVE); NITRITE,URINE NEGATIVE (NEGATIVE); PROTEIN,URINE NEGATIVE (NEGATIVE); URINE SPECIFIC GRAVITY 1.013; UROBILINOGEN,URINE NEGATIVE mg/dL (<2.0)
[2017-11-24 15:48] VITALS: BP 108/65
== END 2017-11-24 15:48 | disposition home or self-care (01) ==
LOC: ER 09:32
DX: J18.9 Pneumonia, unspecified organism (principal); R11.2 Nausea with vomiting, unspecified; R10.12 Left upper quadrant pain; R19.7 Diarrhea, unspecified; Z88.2 Allergy status to sulfonamides; Z87.891 Personal history of nicotine dependence; Z86.14 Personal history of Methicillin resistant Staphylococcus aureus infection
CPT/HCPCS: 99284; 96360; 36415; 83690; 85025; 80053; 81001; 74177; J7030

== ENCOUNTER → 2018-10-07 | Outpatient (CLI) | payer OTHER, MEDICARE, MEDICAID ==
--- NOTE | 2018-10-07 08:26 | RADIOLOGY REPORT (SQ) ---
EXAM DESCRIPTION: CHEST 2 VIEWS COMPLETED DATE/TIME: 10/07/2018 6:56 am REASON FOR STUDY: J45.40 MODERATE PERSISTENT ASHTHMA, UNCOMPLICATED COMPARISON: 08/12/2014, 08/12/2014 EXAM PARAMETERS: NUMBER OF VIEWS: two views TECHNIQUE: Digital Frontal and Lateral radiographic views of the chest acquired. RADIATION DOSE: NA LIMITATIONS: none FINDINGS: LUNGS AND PLEURA: Persistent linear patchy left basilar opacities, decreased from prior ex ams dated 2014. No significant pleural effusion. No pneumothorax burden unremarkable right hemithor ax. MEDIASTINUM AND HILAR STRUCTURES: No masses or contour abnormalities. HEART AND VASCULAR STRUCTURES: Heart normal size. No evidence for failure. BONES: No acute findings. HARDWARE: None in the chest. OTHER: No other significant finding. IMPRESSION: Persistent but decreased patchy opacities at the left lung base compared to 08/12/2014 exa ms. Findings possibly represent scarring although superimposed process is not entirely excluded. No additional evidence of acute cardiopulmonary process. TECHNICAL DOCUMENTATION: JOB ID: [id number] [employer]- All Rights Reserved Reading location - IP/workstation name: [email or web address]
== END ==
LOC: RAD 06:35
PROVIDERS: ATTEND Allergy & Immunology
DX: J45.40 Moderate persistent asthma, uncomplicated (principal)
CPT/HCPCS: 71046

== ENCOUNTER 2019-04-27 09:52 | Emergency (ER) | payer OTHER, MEDICARE, MEDICAID ==
--- NOTE | 2019-04-27 10:36 | ER Document Report ---
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 Patient states that he does not have any significant pain, but does notice irritation mainly on the right side. He is able to eat and drink without difficulty. He is urinating normally and having normal bowel movements. Denies any headache, fever, neck pain, URI, chest pain, palpitations, syncope, shortness of breath, wheeze, dyspnea, abdominal pain, nausea/vomiting/diarrhea, urinary retention, dysuria, hematuria, or rash. - ROS Systems Reviewed and Negative: Yes All other systems reviewed and negative - EENT EENT: REPORTS: Sore Throat - x1 week. DENIES: Ear Pain, Eye problems - NEURO Neurology: DENIES: Headache, Weakness, Vision blurred, Dizzinesss / Vertigo - CARDIOVASCULAR Cardiovascular: DENIES: Chest pain - RESPIRATORY Respiratory: DENIES: Trouble Breathing, Coughing - GASTROINTESTINAL Gastrointestinal: DENIES: Abdominal Pain, Black / Bloody Stools - URINARY Urinary: DENIES: Dysuria, Urgency, Frequency - MUSCULOSKELETAL Musculoskeletal: DENIES: Extremity pain Past Medical History - Social History Smoking Status: Never Smoker Chew tobacco use (# tins/day): No Frequency of alcohol use: None Drug Abuse: Marijuana Family History: DM, Hypertension. denies: Arthritis, CAD, COPD, CVA, Hyperlipidemia, Malignancy, Thyroid Disfunction Patient has suicidal ideation: No Patient has homicidal ideation: No Pulmonary Medical History: Reports: Hx Asthma, Hx Bronchitis, Hx COPD, Hx Pneumonia Endocrine Medical History: Denies: Hx Diabetes Mellitus Type 1, Hx Diabetes Mellitus Type 2 Renal/ Medical History: Denies: Hx Peritoneal Dialysis Musculoskeletal Medical History: Reports Hx Arthritis - Septic arthritis right knee Skin Medical History: Reports Hx MRSA Infectious Medical History: Reports: Hx MRSA Past Surgical History: Reports: Hx Orthopedic Surgery - right knee septic arthritis - Immunizations Hx Diphtheria, Pertussis, Tetanus Vaccination: Yes Vertical Provider Document - CONSTITUTIONAL Agree With Documented VS: Yes Notes: PHYSICAL EXAMINATION: GENERAL: Well-appearing, well-nourished and in no acute distress. A&Ox4. Answers questions appropriately. Moves comfortably w/o notable distress HEAD: Atraumatic, normocephalic. EYES: Pupils equal round and reactive to light, extraocular movements intact, sclera anicteric, conjunctiva are normal. ENT: Nares patent and without discharge. oropharynx mild erythema without exudates. 1+ tonsilar hypertrophy with mild erythema and b/l exudate R>L. No palatine shift. Uvula midline. No tongue protrusion. No drooling, hoarseness, or airway compromise. Moist mucous membranes. No sinus tenderness. NECK: Normal range of motion, supple without lymphadenopathy. No rigidity/meningismus. LUNGS: Bibasilar crackles noted. No retractions HEART: Regular rate and rhythm without murmurs, rubs, gallops. ABDOMEN: Soft, nontender, nondistended abdomen. No guarding, no rebound. Normal bowel sounds present. No CVA tenderness bilaterally. NEUROLOGICAL: Normal speech, normal gait. PSYCH: Normal mood, normal affect. SKIN: Warm, Dry, normal turgor, no rashes or lesions noted. - INFECTION CONTROL TRAVEL OUTSIDE OF THE [place] IN LAST 30 DAYS: No Course - Re-evaluation Re-evalutation: 04/27/19 Patient is an afebrile, well-hydrated, 54-year-old male who presents with exudative tonsilitis b/l R>L (still 1+ in size, however), suspect viral. Vitals are acceptable without significant tachycardia, tachypnea, or hypoxia. His blood pressure is near his baseline as he normally runs lower. He is nontoxic- appearing and is tolerating p.o. without difficulty. He is currently on Levaquin for pneumonia. There is no evidence of thrush in his mouth at this time. Thomas test is negative. Rapid strep negative with throat culture pending. Low suspicion for any meningitis, sepsis, peritonsillar/pharyngeal abscess, respiratory compromise, Jake's, or other emergent systemic condition at this time. Patient is aware this condition can change from initial presentation and he needs to monitor symptoms closely. Conservative measures otherwise for symptoms. Recheck with your PCM this week. Consider consult with ENT. Return to the ED with any worsening/concerning symptoms otherwise as reviewed in discharge. Patient is in agreement. - Vital Signs Vital signs: Temp Pulse Resp BP Pulse Ox 97.5 F 97 16 94/71 L 97 04/27/19 10:13 04/27/19 10:13 04/27/19 10:13 04/27/19 10:13 04/27/19 10:13 Discharge - Discharge Clinical Impression: Sore throat Condition: Stable Disposition: HOME, SELF-CARE Instructions: Sore Throat ([facility]) Additional Instructions: Maintain adequate fluid intake Take meds as directed Salt water gargles, throat sprays, mouthwash rinse, peroxide gargles tylenol/ibuprofen as needed over the counter cold medication as needed for symptoms F/u: with your PCM in 2-3 days for a recheck Consider consult with ENT for ongoing/worsening symptoms Return to the ED with any fever, worsening pain, chest pain, neck pain/stiffness, shortness of breath, cough, drooling, trouble swallowing/breathing, abdominal pain, n/v/d, rash, or worsening/concerning symptoms otherwise. Referrals: [facility] [[facility]] - 04/29/19 YADIRA AMBROSE DO [ASSOCIATE] - Follow up as needed
[2019-04-27 11:21] VITALS: BP 96/80
== END 2019-04-27 11:10 | disposition home or self-care (01) ==
LOC: ER 09:52
DX: J03.90 Acute tonsillitis, unspecified (principal); J18.9 Pneumonia, unspecified organism; D83.9 Common variable immunodeficiency, unspecified
CPT/HCPCS: 36415; 86308; 87070; 87880; 99283

== ENCOUNTER → 2019-05-10 | Outpatient (CLI) | payer MEDICAID, MEDICARE, OTHER ==
--- NOTE | 2019-05-10 11:43 | RADIOLOGY REPORT (SQ) ---
EXAM DESCRIPTION: CT CHEST WITHOUT COMPLETED DATE/TIME: 05/10/2019 8:39 am REASON FOR STUDY: PSEUDOMANS AERUGINOSA INFECTION J98.4 OTHER DISORDERS OF LUNG COMPARISON: CT chest 03/09/2019, 08/12/2014 TECHNIQUE: CT scan performed of the chest without intravenous contrast. Images reviewed with lung, soft tissue and bone windows. Reconstructed coronal and sagittal MPR images reviewed. All images st ored on PACS. All CT scanners at this facility use dose modulation, iterative reconstruction, and/or weight based d osing when appropriate to reduce radiation dose to as low as reasonably achievable (ALARA). [facility]: Dose Right [facility]: CareDose [facility]: Dose Right [facility]: Teradose 4D [facility]: [employer] RADIATION DOSE: CT Rad equipment meets quality standard of care and radiation dose reduction techniq ues were employed. CTDIvol: 3.4 mGy. DLP: 159 mGy-cm. mGy. LIMITATIONS: No technical limitations. FINDINGS: LUNGS AND PLEURA: There is bilateral lower lobe bronchiectasis. At the right lung base, n o focal infiltrates are present In the superior segment left lower lobe, a thin walled globally cavity is present in the periphery of on axial image 80/144. This measures 3 x 2.4 cm in greatest size, similar compared to 03/09/2019 in size. However, since the prior CT scan 03/09/2019 there has been clearance of fluid from the cavity. Since prior CT exam 03/09/2019 there is partial clearing of the dense consolidation in the left water pumper ior costophrenic sulcus. Multiple thin walled cavity persists in the left lower lobe along the perip jam of the lung base. Findings are best shown on axial image 97 through 100. No pleural effusions. No pneumothorax. No new areas of consolidation. Airways are patent. HILAR AND MEDIASTINAL STRUCTURES: No identified masses or abnormal nodes. No obvious aneurysm. HEART AND VASCULAR STRUCTURES: No aneurysm. No pericardial effusion. UPPER ABDOMEN: No significant findings. Limited exam. THYROID AND OTHER SOFT TISSUES: No masses. No adenopathy. BONES: No significant finding. HARDWARE: None in the chest. OTHER: No other significant findings. IMPRESSION: Partial clearing of the dense consolidation in the left posterolateral lung base compare d to 03/09/2019 Persistent bronchiectasis at both lung bases with persistent thin walled bubbly cavity in the superio r segment left lower lobe. TECHNICAL DOCUMENTATION: JOB ID: [id number] Quality ID # [id number]: Final reports with documentation of one or more dose reduction techniques (e.g., Au tomated exposure control, adjustment of the mA and/or kV according to patient size, use of iterative reconstruction technique) 2010 [employer]- All Rights Reserved Reading location - IP/workstation name: [email or web address]
== END ==
LOC: RAD 08:33
PROVIDERS: ATTEND Internal Medicine Critical Care Medicine
DX: J18.9 Pneumonia, unspecified organism (principal); J98.4 Other disorders of lung; A49.8 Other bacterial infections of unspecified site
CPT/HCPCS: 71250

== ENCOUNTER 2019-06-24 18:42 | Inpatient (IN) | payer MEDICARE, MEDICAID ==
[2019-06-24] MEDS ORDERED: MIDAZOLAM HCL 50 MG/100 ML RTUINJ IV PRN (18:54)
[2019-06-24] MEDS ORDERED: MIDAZOLAM 2 MG/2 ML INJ IV ONE (18:55)
[2019-06-24 19:25] LABS: INTERNATIONAL RATION (INR) 1.31; PROTHROMBIN TIME 16.4 SEC (11.4-15.4)
--- NOTE | 2019-06-24 19:27 | ER Document Report ---
ED General - General Chief Complaint: Cardiac Arrest Stated Complaint: CARDIAC ARREST Time Seen by Provider: 06/24/19 18:52 TRAVEL OUTSIDE OF THE [place] IN LAST 30 DAYS: No - HPI Notes: Patient is a 54-year-old male with a known history of CVID and potentially lung cancer who presents to the emergency department for evaluation after cardiac arrest. Evidently he was with family at home, then was found down on the bed. He did have a large amount of diarrhea surrounding him at the time of arrest. They are unsure as to whether or not he fell. His. Down was not long. He was found to be in respiratory and then cardiac arrest per EMS. He was intubated in the field. He received 4 rounds of epinephrine, bicarb. They did obtain return of circulation. He was brought into the ED for further evaluation. Per EMS, the patient is a full code. - Related Data Allergies/Adverse Reactions: Sulfa (Sulfonamide Antibiotics) Allergy (Verified 04/27/19 09:54) Generalized rash Past Medical History - General Information source: Emergency Med Personnel, [facility] Records - Social History Smoking Status: Former Smoker Drug Abuse: Marijuana Family History: DM, Hypertension Pulmonary Medical History: Reports: Hx Asthma, Hx Bronchitis, Hx COPD, Hx Pneumonia Endocrine Medical History: Denies: Hx Diabetes Mellitus Type 1, Hx Diabetes Mellitus Type 2 Renal/ Medical History: Denies: Hx Peritoneal Dialysis Musculoskeletal Medical History: Reports Hx Arthritis - Septic arthritis right knee Skin Medical History: Reports Hx MRSA Infectious Medical History: Reports: Hx MRSA, Other Past Surgical History: Reports: Hx Orthopedic Surgery - right knee septic arthritis - Immunizations Hx Diphtheria, Pertussis, Tetanus Vaccination: Yes Review of Systems - Review of Systems -: Yes ROS unobtainable due to patient's medical condition - C VID Physical Exam - Vital signs Vitals: Resp 14 06/24/19 18:44 - Notes Notes: This is an extremely cachectic 54-year-old male. He is wheeled in by EMS with ET tube in place, they are actively bagging. He is occasionally breathing over the tube. Head is neuropsych and appears atraumatic, pupils are equal and round, sluggish, likely secondary to the ketamine. Oral mucosa is moist. Heart is regular rate and rhythm, lungs show extensive rhonchorous sounds throughout. Abdomen is scaphoid, appears nontender. Extremities without cyanosis or clubbing. Skin is warm and dry. No gross facial asymmetry. Course - Re-evaluation Re-evalutation: 06/24/19 23:37 Patient presents to the emergency department for evaluation. He was status post cardiac arrest, respiratory arrest, in the field. He was intubated in the field, had 4 rounds of epinephrine, bicarb, with ROSC achieved. Initially the patient was tachycardic with borderline blood pressures. He was given IV fluids. Laboratory investigations revealed a significant bandemia, significant hypokalemia. Slowly over time the patient's blood pressure began to drop. This was despite adequate fluid resuscitation. During fluid resuscitation, however, the patient continued to have large volume of diarrhea. Patient was given IV fluids with potassium, then with bicarb, when his pH was found to be 6.99. Patient's blood pressure initially dropped, Levophed was ordered. Despite this infusion, the patient's blood pressure did not respond. Decision was made to initiate second pressor, and Connor-Synephrine was ordered. Given this information, I did feel that the patient urgently needed central venous access. Decision was made to proceed with a right internal jugular catheter. Please see separate procedure note. Patient's blood pressure is currently in the 80s systolic, Connor-Synephrine is being titrated. Awaiting radiology read and internet application developer al medicine admission. 06/25/19 00:24 Radiology read shows the CVC in the superior vena cava. Using this catheter for pressor therapy. I spoke with Dr. Gillespie. He will accept the patient to the intensive care unit. 06/25/19 01:31 I went back and reevaluate the patient. His heart rate has increased into the 150s, his blood pressure is still in the 70s to 80s. He is on very high-dose Connor-Synephrine as well as Levophed. I do not feel comfortable adding another pressor, which will further push his heart rate. He was given more IV fluids. He was administered fentanyl to see if this might be the cause of his refractory tachycardia. I did reorder another metabolic panel. His calcium dropped significantly, which I do suspect is legitimate given the volume of crystalloid he is received. Calcium gluconate as ordered. His repeat potassium was 2.9, further IV potassium was ordered. Awaiting bed in ICU. I will contact lab and add a mag level as well. - Vital Signs Vital signs: Temp Pulse Resp BP Pulse Ox 14 77/63 L 97 06/25/19 00:35 06/25/19 00:35 06/25/19 00:14 - Laboratory Result Diagrams: 06/24/19 18:57 06/25/19 00:50 Laboratory results interpreted by me: 06/24/19 06/24/19 06/24/19 18:57 18:57 18:57 WBC 11.9 H MCHC 31.8 L RDW 15.5 H Seg Neuts % (Manual) 38 L Band Neutrophils % 38 H Metamyelocytes % 4 H Abs Neuts (Manual) 9.5 H PT 16.4 H VBG pH VBG HCO3 Sodium 135.7 L Potassium 2.8 L* Chloride 97 L Carbon Dioxide 11 L Anion Gap 28 H BUN 25 H POC Glucose Lactic Acid Calcium 7.6 L Creatine Kinase 456 H CK-MB (CK-2) Total Protein 4.4 L Albumin 2.7 L Urine Protein Urine Glucose (UA) Urine Blood 06/24/19 06/24/19 06/24/19 18:57 18:57 21:44 WBC MCHC RDW Seg Neuts % (Manual) Band Neutrophils % Metamyelocytes % Abs Neuts (Manual) PT VBG pH VBG HCO3 Sodium Potassium Chloride Carbon Dioxide Anion Gap BUN POC Glucose 140 H Lactic Acid 13.2 H Calcium Creatine Kinase CK-MB (CK-2) 6.04 H Total Protein Albumin Urine Protein Urine Glucose (UA) Urine Blood 06/24/19 06/24/19 06/24/19 21:55 22:40 23:58 WBC MCHC RDW Seg Neuts % (Manual) Band Neutrophils % Metamyelocytes % Abs Neuts (Manual) PT VBG pH 6.99 L* VBG HCO3 10.0 L Sodium Potassium Chloride Carbon Dioxide Anion Gap BUN POC Glucose 212 H Lactic Acid Calcium Creatine Kinase CK-MB (CK-2) Total Protein Albumin Urine Protein 100 H Urine Glucose (UA) 50 H Urine Blood LARGE H - Diagnostic Test Radiology reviewed: Image reviewed, Reports reviewed Radiology results interpreted by me: 06/25/19 00:25 Chest X-Ray 06/24/19 00:00 IMPRESSION: Tip of the central line in the SVC. Slight advancement of the enteric tube may be of benefit. Left basilar airspace opacity. copyright 2011 [employer]- All Rights Reserved Chest X-Ray 06/24/19 18:53 IMPRESSION: Endotracheal tube placement. The lungs are hyperexpanded. Cervical Spine CT 06/24/19 19:03 IMPRESSION: No CT evidence for acute C-spine osseous abnormality. Degenerative changes, as above. Straightening of the normal lordosis may reflect muscle spasm/strain. Partial visualization of endotracheal and enteric tubes. The proximal portion of the enteric tube may be partially coiled in the pharynx. Correlate with physical exam. TECHNICAL DOCUMENTATION: Quality ID # 436: Final reports with documentation of one or more dose reduction techniques (e.g., Automated exposure control, adjustment of the mA and/or kV according to patient size, use of iterative reconstruction technique) copyright 2010 [employer]- All Rights Reserved Head CT 06/24/19 19:03 IMPRESSION: 1. No acute intracranial findings. 2. Redundant loops of nasogastric tube extends into the oropharynx and hypopharynx; consider repositioning - EKG Interpretation by Me Additional EKG results interpreted by me: 06/25/19 00:25 Sinus tachycardia with a rate of 133 bpm. Normal axis and intervals. Nonspecific ST changes, but no acute changes concerning for ischemia or infarction. Procedures - Central Line Right Internal jugular Time completed: 23:20 Consent obtained: Yes Central line pre-insertion: Sterile PPE donned, Chloraprep applied, Sterile drapes applied Central line lumen type: Triple Anesthetic type: Other - Patient currently on Versed drip Ultrasound guided: Yes Line secured with sutures: Yes Central line post-insertion: Blood return from lumens, Sutured, Sterile dressing applied, Position confirmed w/ CXR Number of attempts: 1 Complications: No Notes: 06/24/19 23:35 Patient's only current visitors are longtime girlfriend. The procedure was explained in great detail, questions sought and answered. Patient's girlfriend gave consent, but consent overridden given medical necessity. The area was p repped and draped in usual sterile fashion. Ultrasound was used to identify the internal jugular vein. This was done under sterile technique. The site was marked. Using a finder needle, and under direct ultrasound guidance, the internal jugular vein was cannulated on the right. Guidewire was placed, a artur was placed in skin with an 11 blade scalpel. The dilator was then advanced. It was withdrawn, small amount of blood was obtained, nonpulsatile. The triple- lumen catheter, which had been flushed with normal saline, was advanced slowly. All 3 ports were tested with good blood return and good ability to flush. The central line was sewn in place with 1-0 silk. Chest x-ray was ordered immediately and reviewed by myself. The tip of the CVC seems to be in the superior vena cava. Following placement, I did verify placement in the internal jugular vein with ultrasound directly. Patient tolerated this well, no apparent complications, awaiting radiology read. Critical Care Note - Critical Care Note Total time excluding time spent on procedures (mins): 65 Discharge - Discharge Clinical Impression: Septic shock, Hypokalemia, CVID (common variable immunodeficiency), Cardiac arrest, Respiratory arrest before cardiac arrest, Acute renal failure Diarrhea Qualifiers: Diarrhea type: unspecified type Qualified Code(s): R19.7 - Diarrhea, unspecified Condition: Critical Disposition: ADMITTED INPATIENT Admitting Provider: Jose Miguel (Hospitalist) Unit Admitted: ICU
--- NOTE | 2019-06-24 19:36 | RADIOLOGY REPORT (SQ) ---
EXAM DESCRIPTION: CHEST SINGLE VIEW COMPLETED DATE/TIME: 06/24/2019 7:20 pm REASON FOR STUDY: post cardiac arrest, ETT placement COMPARISON: None. EXAM PARAMETERS: NUMBER OF VIEWS: One view. TECHNIQUE: Single frontal radiographic view of the chest acquired. RADIATION DOSE: NA LIMITATIONS: None. FINDINGS: LUNGS AND PLEURA: Hyperexpanded. No infiltrate or effusion. MEDIASTINUM AND HILAR STRUCTURES: No masses. Contour normal. HEART AND VASCULAR STRUCTURES: Heart normal in size. Normal vasculature. BONES: No acute findings. HARDWARE: Endotracheal tube is present. The tip of the tube is 10 cm above the latoya. OTHER: No other significant finding. IMPRESSION: Endotracheal tube placement. The lungs are hyperexpanded. TECHNICAL DOCUMENTATION: JOB ID: [id number] [employer]- All Rights Reserved Reading location - IP/workstation name: [email or web address]
[2019-06-24 19:38] LABS: ALBUMIN 2.7 g/dL (3.5-5.0); ALKALINE PHOSPHATASE 79 U/L (38-126); ASPARTATE AMINO TRANSFERASE 38 U/L (17-59); BILIRUBIN,DIRECT 0.3 mg/dL (0.0-0.4); BILIRUBIN,TOTAL 0.5 mg/dL (0.2-1.3); BLOOD UREA NITROGEN 25 mg/dL (7-20); CALCIUM 7.6 mg/dL (8.4-10.2); CREATINE KINASE 456 U/L (55-170); GLUCOSE 92 mg/dL (75-110); TOTAL PROTEIN 4.4 g/dL (6.3-8.2)
[2019-06-24 19:50] LABS: CHLORIDE 97 mmol/L (98-107)
[2019-06-24 19:52] LABS: CREATINE KINASE MB 6.04 ng/mL (<4.55)
[2019-06-24 19:57] LABS: ANION GAP 28 (5-19); CARBON DIOXIDE 11 mmol/L (22-30); HEMATOCRIT 49.2 % (37.9-51.0); HEMOGLOBIN 15.7 g/dL (13.5-17.0); MEAN CORPUSCULAR HEMOGLOBIN 30.3 pg (27.0-33.4); MEAN CORPUSCULAR HGB CONC 31.8 g/dL (32.0-36.0); MEAN CORPUSCULAR VOLUME 95 fl (80-97); PLATELET COUNT 210 10^3/uL (150-450); RED BLOOD COUNT 5.16 10^6/uL (4.35-5.55); RED CELL DISTRIBUTION WIDTH 15.5 % (11.5-14.0); WHITE BLOOD COUNT 11.9 10^3/uL (4.0-10.5)
[2019-06-24 19:58] LABS: POTASSIUM 2.8 mmol/L (3.6-5.0); TROPONIN I 0.264 ng/mL
[2019-06-24] MEDS: SODIUM CHLORIDE IRRIG SOLUTION 1,000 ML IRRIG.SOLN IR ONE (20:00)
[2019-06-24] MEDS ORDERED: NORMAL SALINE 1000 ML 1,000 ML IV ONE (20:02)
--- NOTE | 2019-06-24 20:14 | EKG REPORT ---
SEVERITY:- BORDERLINE ECG - SINUS TACHYCARDIA BORDERLINE R WAVE PROGRESSION, ANTERIOR LEADS BORDERLINE T ABNORMALITIES, INFERIOR LEADS : Confirmed by: Madhuri Marmolejo MD 24-Jun-2019 20:13:37
[2019-06-24] MEDS ORDERED: DEXTROSE 50%-WATER 25 GM/50 ML DISP.SYRIN IV ONE ×2 (20:20)
[2019-06-24] MEDS ORDERED: POTASSI CL 40 MEQ/D5-1/2NS 1L 40 MEQ/1,000 ML RTUINJ IV ONE (20:21)
[2019-06-24] MEDS ORDERED: DEXTROSE 5%-WATER 250 ML with NOREPINEPHRINE BITARTRATE 4 MG IV PRN ×2 (20:31)
[2019-06-24] MEDS ORDERED: NOREPINEPHRINE BITARTRATE INJ/PF 4 MG/4 ML SDV IV ONE (20:35)
[2019-06-24 20:36] LABS: ABSOLUTE LYMPHOCYTES# (MANUAL) 1.9 10^3/uL (0.5-4.7); ABSOLUTE MONOCYTES # (MANUAL) 0.5 10^3/uL (0.1-1.4); ANISOCYTOSIS SLIGHT; BASOPHILS % (MANUAL) 0 % (0-2); EOSINOPHILS % (MANUAL) 0 % (0-6); LYMPHOCYTES % (MANUAL) 16 % (13-45); METAMYELOCYTES % (MANUAL) 4 % (0-1); MONOCYTES % (MANUAL) 4 % (3-13); SEGMENTED NEUTROPHILS % (MAN) 38 % (42-78); TOTAL CELLS COUNTED 100
[2019-06-24 20:37] LABS: BAND NEUTROPHILS % (MANUAL) 38 % (3-5); PLATELET COMMENT ADEQUATE
[2019-06-24] MEDS ORDERED: CEFEPIME 2 GM/D5W RTU 2 GM/50 ML RTUPB IV ONE (20:57)
[2019-06-24] MEDS ORDERED: VANCOMYCIN HCL INJ 1000 MG VIAL IV ONE (20:58)
[2019-06-24] MEDS ORDERED: WATER IV PRN ×2 (21:32)
[2019-06-24] MEDS ORDERED: SODIUM BICARBONATE IV PRN ×2 (21:32)
[2019-06-24] MEDS ORDERED: DEXTROSE 5% IV PRN ×2 (21:32)
[2019-06-24] MEDS ORDERED: DEXTROSE 5%-WATER 1000 ML 1,000 ML with SODIUM BICARBONATE 150 MEQ IV PRN ×2 (21:45)
[2019-06-24] MEDS ORDERED: DEXTROSE 5%-WATER 250 ML with PHENYLEPHRINE HCL 40 MG IV PRN ×2 (21:48)
[2019-06-24] MEDS ORDERED: WATER FOR INJECTION,STERILE 1,000 ML with SODIUM BICARBONATE 150 MEQ IV PRN ×2 (21:50)
[2019-06-24 21:56] LABS: VENOUS BLOOD BASE EXCESS -20.8 mmol/L; VENOUS BLOOD PCO2 42.2 mmHg (35-63); VENOUS BLOOD PH 6.99 (7.30-7.42)
[2019-06-24] MEDS ORDERED: SODIUM BICARBONATE 8.4% INJ 50 MEQ/50 ML DISP.SYRIN ONE (22:08)
--- NOTE | 2019-06-24 22:28 | RADIOLOGY REPORT (SQ) ---
EXAM DESCRIPTION: RadLex: CT HEAD WITHOUT IV CONTRAST CLINICAL HISTORY: 54 years Male; Unwitnessed cardiac arrest, fall TECHNIQUE: Noncontrast CT head. All CT scans at this facility use dose modulation, iterative reconstruction, and/or weight based dosing when appropriate to reduce radiation dose to as low as reasonably achievable. COMPARISON: None. FINDINGS: Guzman matter, white matter, ventricles, and cisterns are within normal limits. No acute hemorrhage or mass effect. Small amount of fluid in the maxillary sinuses bilaterally. Sinuses are otherwise clear. No mastoid effusions. Visualized portions of the calvarium are within normal limits. There are redundant loops of nasogastric tube extending into the oropharynx and hypopharynx, best seen on the lateral senior it recruiter view. IMPRESSION: 1. No acute intracranial findings. 2. Redundant loops of nasogastric tube extends into the oropharynx and hypopharynx; consider repositioning
--- NOTE | 2019-06-24 22:32 | RADIOLOGY REPORT (SQ) ---
EXAM DESCRIPTION: CT CERVICAL SPINE WITHOUT IV CONTRAST COMPLETED DATE/TME: 06/24/2019 19:03 CLINICAL HISTORY: 54 years, Male, Unwitnessed cardiac arrest, fall COMPARISON: None. TECHNIQUE: 254 Images stored on PACS. All CT scanners at this facility use dose modulation, iterative reconstruction, and/or weight based dosing when appropriate to reduce radiation dose to as low as reasonably achievable (ALARA). [facility]: Dose Right [facility]: CareDose [facility]: Dose Right [facility]: Teradose 4D [facility]: [employer] LIMITATIONS: None. FINDINGS: Evaluation of spinal canal contents is limited due to CT technique. Straightening of the normal cervical lordosis consistent with muscle spasm/strain. Equivocal anterolisthesis of C2 with respect to C3, likely degenerative and/or developmental. Partial visualization of endotracheal and enteric tubes. The prevertebral soft tissues are otherwise normal. Well-corticated ossific density associated with the anterior C4-5 disc space likely reflects bony spur. Minor endplate degenerative changes throughout the cervical spine. A portion of the visualized enteric tube may be coiled in the upper pharynx. Correlate with physical exam. IMPRESSION: No CT evidence for acute C-spine osseous abnormality. Degenerative changes, as above. Straightening of the normal lordosis may reflect muscle spasm/strain. Partial visualization of endotracheal and enteric tubes. The proximal portion of the enteric tube may be partially coiled in the pharynx. Correlate with physical exam. TECHNICAL DOCUMENTATION: Quality ID # 436: Final reports with documentation of one or more dose reduction techniques (e.g., Automated exposure control, adjustment of the mA and/or kV according to patient size, use of iterative reconstruction technique) copyright 2011 [employer]- All Rights Reserved
[2019-06-24] MEDS ORDERED: ROCURONIUM BROMIDE INJ 50 MG/5 ML VIAL IV ONE (22:58)
[2019-06-24] MEDS ORDERED: PHENYLEPHRINE HCL INJ/PF 10 MG/1 ML SDV ONE (23:09)
[2019-06-24 23:29] LABS: APPEARANCE,URINE CLOUDY; BILIRUBIN,URINE NEGATIVE (NEGATIVE); COLOR,URINE AMBER; GLUCOSE, URINE 50 mg/dL (NEGATIVE); KETONES,URINE NEGATIVE (NEGATIVE); LEUKOCYTE ESTERASE,URINE NEGATIVE (NEGATIVE); NITRITE,URINE NEGATIVE (NEGATIVE); PROTEIN,URINE 100 mg/dL (NEGATIVE); URINE SPECIFIC GRAVITY 1.012; UROBILINOGEN,URINE NEGATIVE mg/dL (<2.0)
[2019-06-24 23:38] LABS: URINE AMPHETAMINES SCREEN NEGATIVE; URINE BARBITURATES SCREEN NEGATIVE; URINE BENZODIAZEPINES SCREEN UNCONFIRMED POSITIVE; URINE COCAINE SCREEN NEGATIVE; URINE MARIJUANA (THC) SCREEN UNCONFIRMED POSITIVE; URINE METHADONE SCREEN NEGATIVE; URINE PHENCYCLIDINE SCREEN NEGATIVE
--- NOTE | 2019-06-24 23:56 | RADIOLOGY REPORT (SQ) ---
EXAM DESCRIPTION: XR CHEST 1 VIEW COMPLETED DATE/TME: 06/24/2019 00:00 CLINICAL HISTORY: 54 years, Male, VERIFY CENTRAL LINE PLACEMENT. COMPARISON: 06/24/2019 chest x-ray at 7:13 PM NUMBER OF VIEWS: 1 TECHNIQUE: Portable chest LIMITATIONS: None. FINDINGS: The heart size is normal. Central venous catheter with the tip in the SVC. Endotracheal tube in place. Tip of the enteric tube likely near the GE junction. Endotracheal tube remains in unchanged position. Underlying hyperinflation. Airspace opacity left lung base. No pneumothorax. Overlying cardiac leads and wires IMPRESSION: Tip of the central line in the SVC. Slight advancement of the enteric tube may be of benefit. Left basilar airspace opacity. copyright 2010 [employer]- All Rights Reserved
[2019-06-25] MEDS ORDERED: SODIUM CHLORIDE IRRIG SOLUTION 1,000 ML IRRIG.SOLN IR ONE (00:30)
[2019-06-25] MEDS: NORMAL SALINE 1000 ML 1,000 ML IV PRN ×2 (00:46→00:47)
[2019-06-25] MEDS: SODIUM CHLORIDE IRRIG SOLUTION 1,000 ML IRRIG.SOLN IR ONE (00:47)
[2019-06-25] MEDS ORDERED: FENTANYL CITRATE INJ/PF 100 MCG/2 ML AMPUL IV ONE (01:04)
[2019-06-25] MEDS ORDERED: PROMETHAZINE HCL INJ 25 MG/1 ML VIAL IV PRN (01:15)
[2019-06-25] MEDS ORDERED: LEVALBUTEROL HCL NEB 0.63 MG/3 ML AMPUL NEB PRN (01:15)
[2019-06-25] MEDS ORDERED: DEXTROSE 50%-WATER 25 GM/50 ML DISP.SYRIN IV PRN ×2 (01:15)
[2019-06-25] MEDS ORDERED: DEXTROSE 5%-WATER 250 ML with NOREPINEPHRINE BITARTRATE 4 MG IV PRN ×2 (01:15)
[2019-06-25] MEDS ORDERED: DEXTROSE 5%-LACTATED RINGERS 1,000 ML IV PRN (01:15)
[2019-06-25] MEDS ORDERED: DEXTROSE 40% GEL 15 GM TUBE PO PRN ×2 (01:15)
[2019-06-25] MEDS ORDERED: GLUCAGON,HUMAN RECOMB 1 MG INJ SUBCUT PRN (01:15)
[2019-06-25] MEDS ORDERED: MIDAZOLAM HCL 50 MG/100 ML RTUINJ IV PRN (01:15)
[2019-06-25 01:20] LABS: ANION GAP 15 (5-19); BLOOD UREA NITROGEN 26 mg/dL (7-20); CARBON DIOXIDE 14 mmol/L (22-30); CHLORIDE 106 mmol/L (98-107); GLUCOSE 231 mg/dL (75-110)
[2019-06-25] MEDS ORDERED: DEXTROSE 5%-WATER 1000 ML 1,000 ML with SODIUM BICARBONATE 150 MEQ IV PRN ×2 (01:24)
[2019-06-25] MEDS ORDERED: ACETAMINOPHEN 650 MG SUPP.RECT PR PRN (01:24)
[2019-06-25 01:30] LABS: POTASSIUM 2.9 mmol/L (3.6-5.0)
[2019-06-25] MEDS ORDERED: VANCOMYCIN HCL INJ 1000 MG VIAL IV SCH (01:30)
[2019-06-25] MEDS ORDERED: MEROPENEM 1 GM VIAL IV SCH (01:30)
[2019-06-25] MEDS ORDERED: CALCIUM GLUCONATE 1000 MG/10 ML INJ IV ONE ×3 (01:30→21:30)
[2019-06-25] MEDS ORDERED: PHARMACY COMMUNICATION ORDER MC NR (01:30)
[2019-06-25 01:31] LABS: CALCIUM 4.4 mg/dL (8.4-10.2)
[2019-06-25] MEDS ORDERED: MIDAZOLAM HCL 50 MG/100 ML RTUINJ ONE (01:35)
[2019-06-25] MEDS ORDERED: NOREPINEPHRINE BITARTRATE INJ/PF 4 MG/4 ML SDV IV ONE ×2 (01:35→05:15)
[2019-06-25] MEDS ORDERED: MEROPENEM 1 GM in NORMAL SALINE 50 ML IV SCH (02:00)
[2019-06-25] MEDS ORDERED: MEROPENEM 1 GM VIAL IV PRN (02:00)
[2019-06-25] MEDS ORDERED: VASOPRESSIN INJ 20 UNIT/1 ML VIAL ONE ×2 (02:21→19:10)
[2019-06-25] MEDS: POTASSI CL 20 MEQ/50 ML RIDER 20 MEQ/50 ML RTUPB IV SCH ×3 (02:23→05:37)
[2019-06-25] MEDS ORDERED: DEXTROSE 5%-WATER 250 ML with VASOPRESSIN 100 UNIT IV PRN ×2 (02:25)
[2019-06-25] MEDS ORDERED: SODIUM BICARBONATE 8.4% INJ 50 MEQ/50 ML DISP.SYRIN ONE (02:50)
[2019-06-25] MEDS ORDERED: PHENYLEPHRINE HCL INJ/PF 10 MG/1 ML SDV ONE ×2 (02:50→06:40)
[2019-06-25] MEDS: DEXTROSE 5%-WATER 250 ML with PHENYLEPHRINE HCL 40 MG IV PRN ×12 (02:52→18:24)
[2019-06-25 03:17] LABS: C DIFFICILE GDH NEGATIVE (NEGATIVE)
[2019-06-25 03:24] LABS: ARTERIAL BLOOD FIO2 100%; ARTERIAL BLOOD H2CO3 1.04 mmol/L (1.05-1.35); ARTERIAL BLOOD HCO3 12.5 mmol/L (20-24); ARTERIAL BLOOD O2 SATURATION 99.9 % (94-98); ARTERIAL BLOOD PCO2 34.7 mmHg (35-45); ARTERIAL BLOOD PO2 560.6 mmHg (80-100); ARTERIAL BLOOD TOTAL CO2 13.5 mmol/L (23-27)
[2019-06-25 03:25] LABS: ARTERIAL BLOOD PH 7.17 (7.35-7.45)
[2019-06-25] MEDS ORDERED: MEROPENEM 1 GM VIAL ONE (04:01)
[2019-06-25] MEDS ORDERED: INFLUENZA QUAD (6MOS+) 2019-20 VAC 0.5 ML SYR IM ONE (04:21)
--- NOTE | 2019-06-25 04:58 | RADIOLOGY REPORT (SQ) ---
EXAM DESCRIPTION: XR CHEST 1 VIEW COMPLETED DATE/TME: 06/25/2019 00:00 CLINICAL HISTORY: ETT CL PLACEMENT COMPARISON: 06/24/2019 FINDINGS: Single frontal view of the chest. Tubes and lines: Endotracheal tube with tip 6 cm above the latoya. Right IJ central venous catheter. NG tube with tip below the diaphragm. Cardiomediastinal silhouette: Stable Lungs: Mild patchy left basilar opacity is stable. No pneumothorax or large effusion. Bones: Stable. Upper abdomen: Stable. IMPRESSION: 1. Stable appearance of the chest.
[2019-06-25] MEDS: DEXTROSE 5%-WATER 250 ML with NOREPINEPHRINE BITARTRATE 4 MG IV PRN ×12 (05:59→18:07)
[2019-06-25] MEDS ORDERED: HEPARIN SOD (PORCINE) 5,000 UNIT/ML 1 ML VIAL SUBCUT SCH (06:00)
[2019-06-25 06:06] LABS: ALBUMIN 1.5 g/dL (3.5-5.0); ALKALINE PHOSPHATASE 33 U/L (38-126); ANION GAP 12 (5-19); ASPARTATE AMINO TRANSFERASE 115 U/L (17-59); BILIRUBIN,DIRECT 0.3 mg/dL (0.0-0.4); BILIRUBIN,TOTAL 0.3 mg/dL (0.2-1.3); BLOOD UREA NITROGEN 27 mg/dL (7-20); CARBON DIOXIDE 18 mmol/L (22-30); CHLORIDE 102 mmol/L (98-107); GLUCOSE 393 mg/dL (75-110); POTASSIUM 3.8 mmol/L (3.6-5.0); TOTAL PROTEIN 2.7 g/dL (6.3-8.2)
--- NOTE | 2019-06-25 06:20 | PDOC H&P ---
History of Present Illness Admission Date/PCP: 06/25/19 00:46 [facility] Patient complains of: Cardiopulmonary arrest History of Present Illness: AMERICA BARRAZA is a 54 year old male who arrived at the emergency room after recovery from cardiopulmonary arrest. Patient is intubated and unable to provide any information therefore the best sources of reliable information are used for history. The patient had been having numerous diarrhea stools over the course of the last 2 or 3 days. He did become very weak and dizzy and his family was planning to bring him to the emergency room when he collapsed and was found to have an acute cardiopulmonary arrest upon the arrival of EMS. Patient was intubated and received 4 rounds of epinephrine as well as several amps of bicarb in order to bring back a cardiac rhythm of PEA and evening eventual return of his effective cardiac rhythm with circulation. In the emergency room the patient was treated with a central line placement and continued IV fluids as well as IV vasopressors utilizing Levophed and epinephrine. Additionally he was noted to be hypothermic for which he was administered warm IV fluids and placed in a bear hugger. He was subsequently admitted to the ICU for further evaluation and treatment. Past Medical History Cardiac Medical History: Denies: Coronary Artery Disease, Hypertension Pulmonary Medical History: Reports: Asthma, Bronchitis, Chronic Obstructive Pulmonary Disease (COPD), Pneumonia EENT Medical History: Denies: Cataracts, Ears - Hearing aids Neurological Medical History: Denies: Hemorrhagic CVA, Ischemic CVA, Seizures Endocrine Medical History: Denies: Diabetes Mellitus Type 1, Diabetes Mellitus Type 2, Hyperthyroidism, Hypothyroidism, Obesity Renal/ Medical History: Denies: Chronic Kidney Disease, Nephrolithiasis Malignancy Medical History: Reports: None GI Medical History: Denies: Cirrhosis Musculoskeltal Medical History: Reports: Arthritis - Septic arthritis right knee Denies: Gout Skin Medical History: Denies: Eczema, Psoriasis Psychiatric Medical History: Denies: Alcohol Dependency, Substance Abuse, Tobacco Dependency Traumatic Medical History: Reports: None Hematology: Reports: Anemia, Other - Common variable immune deficiency syndrome Denies: Bleeding Tendencies Infectious Medical History: Reports: Methicillin-Resistant Staph Aureus Past Surgical History Past Surgical History: Reports: Orthopedic Surgery - right knee septic arthritis Social History Information Source: [facility], LATER [facility] Records Lives with: Spouse/Significant other Smoking Status: Former Smoker Electronic Cigarette use?: No Frequency of Alcohol Use: None Hx Recreational Drug Use: Yes Drugs: Marijuana Hx Prescription Drug Abuse: No - Advance Directive Resuscitation Status: Full Code Surrogate healthcare decision maker:: Paul Barraza Family History Family History: DM, Hypertension Parental Family History Reviewed: Yes Children Family History Reviewed: No Sibling(s) Family History Reviewed.: Yes Medication/Allergy Home Medications: Albuterol Sulfate [Ventolin HFA MDI 18 GM] 2 puff IH Q4HP PRN 02/21/17 Pantoprazole Sodium [Protonix] 40 mg PO DAILY 02/21/17 Budesonide [Entocort EC] 9 mg PO QAM 03/10/19 Cetirizine HCl [All Day Allergy] 10 mg PO DAILY 03/10/19 Cholecalciferol (Vitamin D3) [Vitamin D3 1000 Unit Tablet] 1,000 unit PO DAILY 03/10/19 Immune Glob,Tony Caprylate(IgG) [Gamunex-C 10% Inj 10 gm/100 ml (Ivig) Sdv] 8 gm SQ MOFR PRN 03/10/19 Mirtazapine [Remeron 15 mg Tablet] 15 mg PO QHS 03/10/19 Pantoprazole Sodium [Protonix [address] Tablet] 40 mg PO QAM 03/10/19 Potassium Chloride 40 meq PO DAILY 03/10/19 Folic Acid/Vitamin B Comp W-C [Nephrocaps Multiple Vitamin Capsule] 1 cap PO ACSUPPER #60 capsule 03/13/19 Ipratropium/Albuterol Sulfate [Duoneb 3 ml Ampul] 3 ml NEB RTQ6HP PRN vial.neb 03/13/19 Levofloxacin [Levaquin 750 mg Tablet] 750 mg PO DAILY 6 Days #6 tab 03/13/19 Multivitamins W-Iron [Flintstones Chewable Multivit W/Fe Tab] 1 tab PO DAILY #60 tab.chew 03/13/19 Allergies/Adverse Reactions: Sulfa (Sulfonamide Antibiotics) Allergy (Verified 04/27/19 09:54) Generalized rash Review of Systems ROS unobtainable: Due to endotracheal tube Physical Exam Vital Signs: Temp Pulse Resp BP Pulse Ox 14 77/63 L 97 06/25/19 00:35 06/25/19 00:35 06/25/19 00:14 Intake & Output 06/23/19 06/24/19 06/25/19 23:59 23:59 23:59 Intake Total 1026 104 Balance 1026 104 Weight 38.7 kg General appearance: PRESENT: no acute distress, other - Endotracheally intubated and on mechanical ventilation at the time of my evaluation Head exam: PRESENT: atraumatic, normocephalic Eye exam: PRESENT: conjunctiva pink. ABSENT: conjunctival injection, scleral icterus Ear exam: PRESENT: normal external ear exam. ABSENT: bleeding, drainage Mouth exam: PRESENT: dry mucosa, neck supple Neck exam: ABSENT: thyromegaly, tracheal deviation Respiratory exam: PRESENT: clear to auscultation jackelyn, symmetrical Cardiovascular exam: PRESENT: RRR. ABSENT: clicks, gallop, rubs Pulses: PRESENT: normal carotid pulses. ABSENT: normal dorsalis pedis pul - Decreased dorsalis pedis pulses bilaterally Vascular exam: ABSENT: normal capillary refill - Poor capillary refill: greater than 4 seconds, pallor GI/Abdominal exam: PRESENT: hypoactive bowel sounds, soft Rectal exam: PRESENT: deferred Extremities exam: ABSENT: joint swelling, pedal edema Musculoskeletal exam: ABSENT: deformity, dislocation Neurological exam: PRESENT: other - Intubated and sedated at the time my exam Psychiatric exam: PRESENT: other - Intubated and sedated time of my exam Skin exam: PRESENT: dry, intact. ABSENT: jaundice, rash, urticaria Results Laboratory Results: 06/24/19 18:57 06/24/19 18:57 06/24/19 06/24/19 06/24/19 18:57 18:57 18:57 WBC 11.9 H RBC 5.16 Hgb 15.7 Hct 49.2 MCV 95 MCH 30.3 MCHC 31.8 L RDW 15.5 H Plt Count 210 Seg Neutrophils % Not Reportable Carbonic Acid HCO3/H2CO3 Ratio ABG pH ABG pCO2 ABG pO2 ABG HCO3 ABG O2 Saturation ABG Base Excess VBG pH VBG pCO2 VBG HCO3 VBG Base Excess FiO2 Sodium 135.7 L Potassium 2.8 L* Chloride 97 L Carbon Dioxide 11 L Anion Gap 28 H BUN 25 H Creatinine Not Reportable Glucose 92 Lactic Acid 13.2 H Calcium 7.6 L Total Bilirubin 0.5 AST 38 Alkaline Phosphatase 79 Total Protein 4.4 L Albumin 2.7 L Urine Color Urine Appearance Urine pH Ur Specific [place] Urine Protein Urine Glucose (UA) Urine Ketones Urine Blood Urine Nitrite Ur Leukocyte Esterase Urine WBC (Auto) Urine RBC (Auto) 06/24/19 06/24/19 06/24/19 21:09 21:55 22:40 WBC RBC Hgb Hct MCV MCH MCHC RDW Plt Count Seg Neutrophils % Carbonic Acid Cancelled HCO3/H2CO3 Ratio Cancelled ABG pH Cancelled ABG pCO2 Cancelled ABG pO2 Cancelled ABG HCO3 Cancelled ABG O2 Saturation Cancelled ABG Base Excess Cancelled VBG pH 6.99 L* VBG pCO2 42.2 VBG HCO3 10.0 L VBG Base Excess -20.8 FiO2 Cancelled Sodium Potassium Chloride Carbon Dioxide Anion Gap BUN Creatinine Glucose Lactic Acid Calcium Total Bilirubin AST Alkaline Phosphatase Total Protein Albumin Urine Color PRINCE Urine Appearance CLOUDY Urine pH 5.0 Ur Specific [place] 1.012 Urine Protein 100 H Urine Glucose (UA) 50 H Urine Ketones NEGATIVE Urine Blood LARGE H Urine Nitrite NEGATIVE Ur Leukocyte Esterase NEGATIVE Urine WBC (Auto) 15 Urine RBC (Auto) 9 06/24/19 06/24/19 18:57 18:57 Creatine Kinase 456 H CK-MB (CK-2) 6.04 H Troponin I 0.264 Impressions: Chest X-Ray 06/24/19 18:53 IMPRESSION: Endotracheal tube placement. The lungs are hyperexpanded. Cervical Spine CT 06/24/19 19:03 IMPRESSION: No CT evidence for acute C-spine osseous abnormality. Degenerative changes, as above. Straightening of the normal lordosis may reflect muscle spasm/strain. Partial visualization of endotracheal and enteric tubes. The proximal portion of the enteric tube may be partially coiled in the pharynx. Correlate with physical exam. TECHNICAL DOCUMENTATION: Quality ID # [id number]: Final reports with documentation of one or more dose reduction techniques (e.g., Automated exposure control, adjustment of the mA and/or kV according to patient size, use of iterative reconstruction technique) copyright 2011 [employer]- All Rights Reserved Head CT 06/24/19 19:03 IMPRESSION: 1. No acute intracranial findings. 2. Redundant loops of nasogastric tube extends into the oropharynx and hypopharynx; consider repositioning Assessment and Plan - Diagnosis (1) Cardiogenic shock Is this a current diagnosis for this admission?: Yes (2) Hypotension Qualifiers: Hypotension type: unspecified hypotension type Qualified Code(s): I95.9 - Hypotension, unspecified Is this a current diagnosis for this admission?: Yes (3) Hypothermia Qualifiers: Encounter type: initial encounter Qualified Code(s): T68.XXXA - Hypothermia, initial encounter Is this a current diagnosis for this admission?: Yes (4) Metabolic acidosis Is this a current diagnosis for this admission?: Yes (5) Diarrhea Qualifiers: Diarrhea type: unspecified type Qualified Code(s): R19.7 - Diarrhea, unspecified Is this a current diagnosis for this admission?: Yes (6) CVID (common variable immunodeficiency) Is this a current diagnosis for this admission?: Yes - Plan Summary Summary: Patient is post to the ICU and will be continued on endotracheal intubation with ventilation, initially midozalam will be administered intravenously via infusion for sedation. Will be continued on intravenous vasopressors of Levophed and epinephrine with additional vasopressors as required. His acidosis will be corrected with a bicarbonate infusion and he will be continued on empiric antibiotic therapy initiated in the emergency room. Patient will be turned over to the care of the examination supervisor at 0700. - Time Time Spent with patient: 25-34 minutes Medications reviewed and adjusted accordingly: Yes Anticipated discharge: Home - Inpatient Certification Based on my medical assessment, after consideration of the patient's comorbidities, presenting symptoms, or acuity I expect that the services needed warrant INPATIENT care.: Yes I certify that my determination is in accordance with my understanding of Medicare's requirements for reasonable and necessary INPATIENT services [42 CFR 412.3e].: Yes Medical Necessity: Significant Comorbidiites Make Outpatient Treatment Too Risky, Need Close Monitoring Due to Risk of Patient Decompensation, Need For IV Fluids, Need For Continuous Telemetry Monitoring, Need for IV Antibiotics, Risk of Complication if Not Cared For in Hospital, Risk of Diagnosis Which Will Require Inpatient Eval/Care/Monitoring
[2019-06-25 06:23] LABS: CALCIUM 4.6 mg/dL (8.4-10.2)
[2019-06-25] MEDS ORDERED: MAGNESIUM SULFATE/D5W 1 GM/100 ML RTUPB IV ONE (06:39)
[2019-06-25] MEDS: MAGNESIUM SULFATE/D5W 1 GM/100 ML RTUPB IV SCH ×5 (06:47→23:40)
[2019-06-25 07:25] LABS: ARTERIAL BLOOD BASE EXCESS -11.1 mmol/L; ARTERIAL BLOOD FIO2 100%; ARTERIAL BLOOD H2CO3 0.85 mmol/L (1.05-1.35); ARTERIAL BLOOD HCO3 13.7 mmol/L (20-24); ARTERIAL BLOOD O2 SATURATION 99.9 % (94-98); ARTERIAL BLOOD PCO2 28.1 mmHg (35-45); ARTERIAL BLOOD PH 7.31 (7.35-7.45); ARTERIAL BLOOD PO2 502.4 mmHg (80-100); ARTERIAL BLOOD TOTAL CO2 14.6 mmol/L (23-27)
[2019-06-25 08:07] LABS: ARTERIAL BLOOD BASE EXCESS -11.2 mmol/L; ARTERIAL BLOOD H2CO3 1.23 mmol/L (1.05-1.35); ARTERIAL BLOOD O2 SATURATION 63.4 % (94-98); ARTERIAL BLOOD PCO2 40.9 mmHg (35-45); ARTERIAL BLOOD TOTAL CO2 17.3 mmol/L (23-27)
[2019-06-25 08:07] LABS: ARTERIAL BLOOD BASE EXCESS -11.6 mmol/L; ARTERIAL BLOOD FIO2 60%; ARTERIAL BLOOD H2CO3 0.83 mmol/L (1.05-1.35); ARTERIAL BLOOD HCO3 13.3 mmol/L (20-24); ARTERIAL BLOOD O2 SATURATION 99.5 % (94-98); ARTERIAL BLOOD PCO2 27.5 mmHg (35-45); ARTERIAL BLOOD PO2 261.1 mmHg (80-100); ARTERIAL BLOOD TOTAL CO2 14.1 mmol/L (23-27)
[2019-06-25 08:10] LABS: ARTERIAL BLOOD FIO2 60%; ARTERIAL BLOOD PH 7.21 (7.35-7.45); ARTERIAL BLOOD PO2 39.3 mmHg (80-100)
[2019-06-25] MEDS ORDERED: HYDROCORTISONE SOD SUCCINATE INJ/PF 100 MG/2 ML SDV IV ONE (08:10)
[2019-06-25 08:15] LABS: HEMATOCRIT 39.6 % (37.9-51.0); MEAN CORPUSCULAR HEMOGLOBIN 30.8 pg (27.0-33.4); MEAN CORPUSCULAR HGB CONC 33.1 g/dL (32.0-36.0); MEAN CORPUSCULAR VOLUME 93 fl (80-97); RED BLOOD COUNT 4.27 10^6/uL (4.35-5.55); RED CELL DISTRIBUTION WIDTH 15.2 % (11.5-14.0); WHITE BLOOD COUNT 5.4 10^3/uL (4.0-10.5)
[2019-06-25] MEDS ORDERED: MAGNESIUM SULFATE/D5W 1 GM/100 ML RTUPB IV SCH (08:15)
[2019-06-25] MEDS ORDERED: IMMUNE GLOB,GAM CAPRYLATE(IGG) 20 GM/200 ML SDV IV ONE (08:22)
[2019-06-25] MEDS ORDERED: CALCIUM CHLORIDE 10% PF/INJ 1000 MG/10 ML SDV IV ONE (08:22)
[2019-06-25] MEDS ORDERED: SODIUM BICARBONATE 8.4% INJ 50 MEQ/50 ML DISP.SYRIN IV ONE (08:25)
--- NOTE | 2019-06-25 08:25 | RADIOLOGY REPORT (SQ) ---
EXAM DESCRIPTION: KUB/ABDOMEN (SINGLE VIEW) COMPLETED DATE/TIME: 06/25/2019 3:09 am REASON FOR STUDY: Check Placement of NG Tube, ETT AND CL PLACEMENT COMPARISON: None. NUMBER OF VIEWS: One view. TECHNIQUE: Supine radiographic image of the chest and abdomen acquired. LIMITATIONS: None. FINDINGS: Combination view of the chest and abdomen was submitted for line placement. Central line overlies the SVC. No pneumothorax. NG tube tip lies in the left upper quadrant most likely within t he stomach. The endotracheal tube is seen at the top of the image and may need to be advanced is lie s 7 cm above the latoya. Lung rich are otherwise grossly unchanged. IMPRESSION: Support lines and tubes are in place as described above. TECHNICAL DOCUMENTATION: JOB ID: [id number] [employer]- All Rights Reserved Reading location - IP/workstation name: [email or web address]
[2019-06-25 08:34] LABS: HEMOGLOBIN 13.1 g/dL (13.5-17.0)
[2019-06-25] MEDS: MILRINONE LACTATE/D5W 20 MG/100 ML RTUINJ IV PRN (08:34)
[2019-06-25 08:35] LABS: PLATELET COUNT 64 10^3/uL (150-450)
[2019-06-25] MEDS: FAMOTIDINE INJ/PF 20 MG/2 ML SDV IV SCH ×2 (09:28→21:52)
[2019-06-25] MEDS: DEXTROSE 5%-WATER 250 ML with EPINEPHRINE/PF 1 MG IV PRN ×8 (09:29→18:05)
[2019-06-25] MEDS ORDERED: IMMUNE GLOB,GAM CAPRYLATE(IGG) 20 GM in CONTAINER,EMPTY 1 EACH IV ONE (09:30)
[2019-06-25 09:37] LABS: ABSOLUTE LYMPHOCYTES# (MANUAL) 0.4 10^3/uL (0.5-4.7); ABSOLUTE MONOCYTES # (MANUAL) 0.2 10^3/uL (0.1-1.4); ANISOCYTOSIS SLIGHT; BAND NEUTROPHILS % (MANUAL) 57 % (3-5); BASOPHILS % (MANUAL) 0 % (0-2); EOSINOPHILS % (MANUAL) 0 % (0-6); LYMPHOCYTES % (MANUAL) 7 % (13-45); METAMYELOCYTES % (MANUAL) 12 % (0-1); MONOCYTES % (MANUAL) 3 % (3-13); MYELOCYTES % (MANUAL) 5 % (0); SEGMENTED NEUTROPHILS % (MAN) 15 % (42-78); TOTAL CELLS COUNTED 100
[2019-06-25 09:42] LABS: BURR CELLS 2+; PLATELET COMMENT DECREASED; POIKILOCYTOSIS 2+; TOXIC GRANULATION 1+
[2019-06-25 09:43] LABS: PATH REVIEW PATHOLOGIST REVIEWED
[2019-06-25] MEDS ORDERED: PANTOPRAZOLE SODIUM 40 MG VIAL IV SCH (10:00)
[2019-06-25] MEDS ORDERED: ZINC SULFATE 220 MG CAPSULE PO SCH (10:30)
[2019-06-25] MEDS ORDERED: FOLIC ACID INJ 5 MG/1 ML 10 ML VIAL IV SCH (10:30)
[2019-06-25] MEDS ORDERED: ZINC SULF/CUSO4 P-HYD/MANG/CR INJ 1 ML SDV IV SCH (10:30)
--- NOTE | 2019-06-25 10:37 | RADIOLOGY REPORT (SQ) ---
EXAM DESCRIPTION: CHEST SINGLE VIEW COMPLETED DATE/TIME: 06/25/2019 10:17 am REASON FOR STUDY: PA CATH/CENTRAL LINE PLACEMENT/ETT TUBE PLACEMENT COMPARISON: Earlier the same day. NUMBER OF VIEWS: One view. TECHNIQUE: Single frontal radiographic image of the chest acquired. LIMITATIONS: None. FINDINGS: LUNGS AND PLEURA: Stable appearance. MEDIASTINUM AND HILAR STRUCTURES: Stable heart size and mediastinal structures. HEART AND VASCULAR STRUCTURES: Stable appearance. SUPPORT DEVICES: The endotracheal tube has been advanced and now lies approximately 4.7 cm above the latoya. A new left-sided Rockham-Willie catheter has been placed. Catheter tip is weight blandon and left l ower lobe pulmonary artery. No pneumothorax. BONES: No acute findings. OTHER: No other significant finding. IMPRESSION: 1. Endotracheal tube has been slightly advanced as described. 2. Left-sided Rockham-Willie catheter has been placed. Catheter tip is wedge new left lower lobe pulmona ry artery. 3. No other interval change in the chest. TECHNICAL DOCUMENTATION: JOB ID: [id number] [employer]- All Rights Reserved Reading location - IP/workstation name: [email or web address]
[2019-06-25 10:42] LABS: ARTERIAL BLOOD BASE EXCESS -9.4 mmol/L; ARTERIAL BLOOD H2CO3 1.07 mmol/L (1.05-1.35); ARTERIAL BLOOD HCO3 16.4 mmol/L (20-24); ARTERIAL BLOOD O2 SATURATION 99.8 % (94-98); ARTERIAL BLOOD PCO2 35.6 mmHg (35-45); ARTERIAL BLOOD PH 7.28 (7.35-7.45); ARTERIAL BLOOD PO2 470.8 mmHg (80-100); ARTERIAL BLOOD TOTAL CO2 17.5 mmol/L (23-27)
[2019-06-25 11:09] LABS: ARTERIAL BLOOD FIO2 100%
[2019-06-25] MEDS ORDERED: FENTANYL CITRATE INJ/PF 100 MCG/2 ML AMPUL ONE (11:12)
[2019-06-25] MEDS: THIAMINE HCL 500 MG in NORMAL SALINE 250 ML IV SCH (11:41)
[2019-06-25] MEDS: ZINC SULFATE 220 MG CAPSULE PO SCH (11:42)
[2019-06-25 11:47] LABS: ARTERIAL BLOOD H2CO3 1.39 mmol/L (1.05-1.35); ARTERIAL BLOOD HCO3 18.5 mmol/L (20-24); ARTERIAL BLOOD O2 SATURATION 78.1 % (94-98); ARTERIAL BLOOD PCO2 46.1 mmHg (35-45); ARTERIAL BLOOD PH 7.22 (7.35-7.45); ARTERIAL BLOOD PO2 50.2 mmHg (80-100); ARTERIAL BLOOD TOTAL CO2 19.9 mmol/L (23-27)
[2019-06-25 11:50] LABS: ARTERIAL BLOOD FIO2 100%
[2019-06-25] MEDS ORDERED: ESMOLOL HCL/SOD CL 2,500 MG/250 ML RTUINJ IV PRN (12:00)
--- NOTE | 2019-06-25 14:00 | XCELERA REPORT ---
[address] [address] Transthoracic Echocardiogram Report Name: AMERICA ANDERSON Age: 54 yrs Gender: Male : 1965 Patient Status: Inpatient Patient Location: ICU^603^A Study Date: 06/25/2019 09:32 AM Height: 73 in Weight: 108 lb BSA: 1.7 m2 Procedure: A two-dimensional transthoracic echocardiogram with color flow and Doppler was performed. Study Quality: Fair. Reason For Study: Post Code, Cardiogenic Shock History: Post Code, Cardiogenic Shock. Ordering Physician: REAHN PRICE Performed By: Katrin Montejo Interpretation Summary The left ventricle is mildly dilated. There is normal left ventricular wall thickness. LV EF is Less than 20% Left ventricular systolic function is severely reduced. Doppler measurements suggest impaired left ventricular relaxation, which is associated with grade I/IV or mild diastolic dysfunction There is severe global hypokinesis of the left ventricle. There is no thrombus. No ASD,VSD ,or PFO seen. The right ventricle is mildly dilated. There is mild right ventricular hypertrophy. The right ventricular systolic function is mildly reduced. The right atrium is normal. The left atrial size is normal. There is no evidence of mitral valve prolapse. There is no vegetation seen on the mitral valve. There is no mitral valve stenosis. There is a trace amount of mitral regurgitation There is no aortic valvular vegetation. There is no aortic valve stenosis There is no LVOT obstruction. There is a trace amount of aortic regurgitation There is no tricuspid stenosis. There is a mild amount of tricuspid regurgitation There is mild pulmonary hypertension by echo RVSP is at least 34 mm of Hg , with RA mean of at least 20.Strongly suspect undersampling of TR jet and hence under estimation of RVSP. There is no pulmonic valvular stenosis. There is a trace amount of pulmonic regurgitation The aortic root is normal size. The inferior vena cava appeared dilated and did not change with respiration (RAP > 20 mmHg) There is no pericardial effusion. MMode/2D Measurements & Calculations RVDd: 1.8 cm LVIDd: 4.8 cm FS: 8.3 % Ao root diam: 3.3 cm IVSd: 0.66 cm LVIDs: 4.4 cm EDV(Teich): 106.1 ml Ao root area: 8.4 cm2 LVPWd: 0.75 cm ESV(Teich): 86.5 ml EF(Teich): 18.5 % Doppler Measurements & Calculations MV E max salo: MV dec slope: Ao V2 max: LV V1 max P.8 cm/sec 489.3 cm/sec2 45.1 cm/sec 0.91 mmHg MV A max salo: MV dec time: 0.10 sec Ao max PG: LV V1 max: 54.5 cm/sec 0.82 mmHg 47.7 cm/sec MV E/A: 0.86 PA V2 max: PI end-d salo: TR max salo: 39.1 cm/sec 120.4 cm/sec 186.5 cm/sec PA max PG: TR max P.61 mmHg 14.0 mmHg Left Ventricle The left ventricle is mildly dilated. There is normal left ventricular wall thickness. LV EF is Less than 20%. Left ventricular systolic function is severely reduced. Doppler measurements suggest impaired left ventricular relaxation, which is associated with grade I/IV or mild diastolic dysfunction. There is severe global hypokinesis of the left ventricle. There is no thrombus. No ASD,VSD ,or PFO seen. Right Ventricle The right ventricle is mildly dilated. There is mild right ventricular hypertrophy. The right ventricular systolic function is mildly reduced. Atria The right atrium is normal. The left atrial size is normal. Mitral Valve There is no evidence of mitral valve prolapse. There is no vegetation seen on the mitral valve. There is no mitral valve stenosis. There is a trace amount of mitral regurgitation. Aortic Valve There is no aortic valvular vegetation. There is no aortic valve stenosis. There is no LVOT obstruction. There is a trace amount of aortic regurgitation. Tricuspid Valve There is no tricuspid stenosis. There is a mild amount of tricuspid regurgitation. There is mild pulmonary hypertension by echo. RVSP is at least 34 mm of Hg , with RA mean of at least 20.Strongly suspect undersampling of TR jet and hence under estimation of RVSP. Pulmonic Valve There is no pulmonic valvular stenosis. There is a trace amount of pulmonic regurgitation. Great Vessels The aortic root is normal size. The inferior vena cava appeared dilated and did not change with respiration (RAP > 20 mmHg). Effusions There is no pericardial effusion. : REHAN PRICE Lakshmi
[2019-06-25] MEDS ORDERED: METHYLENE BLUE 50 MG/10 ML AMPULE IV ONE ×2 (14:12→15:00)
[2019-06-25 14:34] LABS: PATH REVIEW PATHOLOGIST REVIEWED
[2019-06-25] MEDS: HYDROCORTISONE SOD SUCCINATE INJ/PF 100 MG/2 ML SDV IV SCH ×2 (14:49→21:52)
[2019-06-25] MEDS ORDERED: LORAZEPAM INJ 2 MG/1 ML VIAL IV ONE ×2 (14:58→21:56)
[2019-06-25] MEDS ORDERED: LORAZEPAM INJ 2 MG/1 ML VIAL ONE ×2 (14:58→21:57)
[2019-06-25] MEDS: FOLIC ACID 1 MG in NORMAL SALINE 50 ML IV SCH ×2 (15:21→21:52)
[2019-06-25] MEDS ORDERED: DEXTROSE 5% IV ONE (15:30)
[2019-06-25] MEDS ORDERED: METHYLENE BLUE IV ONE (15:30)
[2019-06-25] MEDS ORDERED: WATER IV ONE (15:30)
[2019-06-25 15:35] LABS: ALBUMIN 1.5 g/dL (3.5-5.0); ALKALINE PHOSPHATASE 44 U/L (38-126); ANION GAP 14 (5-19); ASPARTATE AMINO TRANSFERASE 206 U/L (17-59); BILIRUBIN,DIRECT 0.3 mg/dL (0.0-0.4); BILIRUBIN,TOTAL 0.4 mg/dL (0.2-1.3); BLOOD UREA NITROGEN 28 mg/dL (7-20); CARBON DIOXIDE 14 mmol/L (22-30); CHLORIDE 97 mmol/L (98-107); GLUCOSE 352 mg/dL (75-110); TOTAL PROTEIN 3.2 g/dL (6.3-8.2)
[2019-06-25 16:13] LABS: CALCIUM 4.9 mg/dL (8.4-10.2); POTASSIUM 2.7 mmol/L (3.6-5.0)
[2019-06-25] MEDS: POTASSIUM CHLORIDE 20 MEQ/50 ML RTU IV SCH ×3 (16:49→20:35)
--- NOTE | 2019-06-25 18:03 | Operative Report ---
Bedside Procedure - History of Present Illness History of Present Illness: AMERICA ANDERSON is a 54 year old male who arrived at the emergency room after recovery from cardiopulmonary arrest. Patient is intubated and unable to provide any information therefore the best sources of reliable information are used for history. The patient had been having numerous diarrhea stools over the course of the last 2 or 3 days. He did become very weak and dizzy and his family was planning to bring him to the emergency room when he collapsed and was found to have an acute cardiopulmonary arrest upon the arrival of EMS. Patient was intubated and received 4 rounds of epinephrine as well as several amps of bicarb in order to bring back a cardiac rhythm of PEA and evening eventual return of his effective cardiac rhythm with circulation. In the emergency room the patient was treated with a central line placement and continued IV fluids as well as IV vasopressors utilizing Levophed and epinephrine. Additionally he was noted to be hypothermic for which he was administered warm IV fluids and placed in a bear hugger. He was subsequently admitted to the ICU for further evaluation and treatment. Procedure Procedure: Insertion of large-bore central venous catheter with US guidance Preop diagnosis: Cardiogenic shock need for right heart catheterization ( PA catheter) Postop diagnosis: same Estimated blood loss 5-10 cc Complications none Chest x-ray no pneumothorax Done under ultrasound guidance no pneumothorax seen Anesthesia none (patient is comatose) Patient was appropriate identified secondary to ongoing critical care chart check and name bracelet. Consent was obtained verbally from the brother who was at bedside. This was done emergently because the patient was found to be in cardiogenic shock. Previously had a right internal jugular central venous catheter which precluded the use of this for catheter placement. The left chest was prepped and draped in sterile fashion and allowed to dry. Using full barrier precautions and sterile regalia for this author including no nsterile mask and The procedure was started after a timeout was called. Left subclavian vein was chosen a site of access secondary to anatomical preference. Under dynamic sterile ultrasound guidance. The Quincke-Seldinger needle was inserted into the left subclavian vein. Good venous blood was noted. At this point a wire was placed through the needle with success. The needle was then removed. An incision was then made in the skin to facilitate placement of the dilator catheter which was an in situ catheter. This was done over wire using typical Seldinger technique. After this was placed both the wire and the dilator were removed and block. Venous blood was aspirated from all ports. Ultrasound of the chest showed no pneumothorax and the wire seen in the vein prior to completion. The catheter was then flushed with saline after blood was aspirated and sewn x2. X-ray showed no pneumothorax. Procedure excludes critical care time Indication for Procedure: cardiogenic shock Date: 06/25/19 Provider: REHAN PRICE
--- NOTE | 2019-06-25 18:11 | Operative Report ---
Bedside Procedure - History of Present Illness History of Present Illness: AMERICA ANDERSON is a 54 year old male who arrived at the emergency room after recovery from cardiopulmonary arrest. Patient is intubated and unable to provide any information therefore the best sources of reliable information are used for history. The patient had been having numerous diarrhea stools over the course of the last 2 or 3 days. He did become very weak and dizzy and his family was planning to bring him to the emergency room when he collapsed and was found to have an acute cardiopulmonary arrest upon the arrival of EMS. Patient was intubated and received 4 rounds of epinephrine as well as several amps of bicarb in order to bring back a cardiac rhythm of PEA and evening eventual return of his effective cardiac rhythm with circulation. In the emergency room the patient was treated with a central line placement and continued IV fluids as well as IV vasopressors utilizing Levophed and epinephrine. Additionally he was noted to be hypothermic for which he was administered warm IV fluids and placed in a bear hugger. He was subsequently admitted to the ICU for further evaluation and treatment. Procedure Procedure: Insertion of right heart catheter (PA-catheter) Preop diagnosis: Cardiogenic shock need for right heart catheterization ( PA catheter) Postop diagnosis: same Estimated blood loss None Complications none Chest x-ray no pneumothorax--catheter deep in left pulmonary segments. Pulled back. Done under ultrasound guidance no pneumothorax seen Anesthesia none (patient is comatose) Patient was appropriate identified secondary to ongoing critical care chart check and name bracelet. Consent was obtained verbally from the brother who was at bedside. This was done emergently because the patient was found to be in cardiogenic shock. Previously had a Left subclavian central venous catheter introducer to allow for placment. The left chest was prepped and draped in sterile fashion and allowed to dry earlier during introducer placement. The ports were all flushed and the transducer Zeroed to julia pressure. Interrogation of the catheter occurred using the phlebostatic point in hydrostatic pressure line of 30 that pressure was 22- 24mmHg.. Using full barrier precautions and sterile regalia for this author including nonsterile mask and the procedure was started after a timeout was called. The catheter sheath was placed and the catheter was inserted with the balloon being dilated at 20 cm. The catheter was originally inserted to approximately 60 cm but did not appear to have a flattened waveform. RV pressures were noted to be 10 mmHg and PA pressures were 14/6. CVP is 5-6 and his wedge pressure be obtained. Repeat chest x-ray was done which showed the catheter deep into the right lower pulmonary segments. It was pulled back and an achievable wedge was obtained. That wedge was approximately 5-6 as well. We will await hemodynamic parameters. Tolerated procedure well there were no complications This procedure excludes critical care time Indication for Procedure: Cardiogenic shock Date: 06/25/19 Provider: REHAN PRICE
--- NOTE | 2019-06-25 18:15 | Operative Report ---
Bedside Procedure - History of Present Illness History of Present Illness: AMERICA ANDERSON is a 54 year old male who arrived at the emergency room after recovery from cardiopulmonary arrest. Patient is intubated and unable to provide any information therefore the best sources of reliable information are used for history. The patient had been having numerous diarrhea stools over the course of the last 2 or 3 days. He did become very weak and dizzy and his family was planning to bring him to the emergency room when he collapsed and was found to have an acute cardiopulmonary arrest upon the arrival of EMS. Patient was intubated and received 4 rounds of epinephrine as well as several amps of bicarb in order to bring back a cardiac rhythm of PEA and evening eventual return of his effective cardiac rhythm with circulation. In the emergency room the patient was treated with a central line placement and continued IV fluids as well as IV vasopressors utilizing Levophed and epinephrine. Additionally he was noted to be hypothermic for which he was administered warm IV fluids and placed in a bear hugger. He was subsequently admitted to the ICU for further evaluation and treatment. Procedure Procedure: Insertion of right axillary arterial catheter Preop diagnosis: Cardiogenic shock with hypotension Postop diagnosis: same Estimated blood loss 5 ml Complications none Done under ultrasound guidance Anesthesia none (patient is comatose) Patient was appropriate identified secondary to ongoing critical care chart check and name bracelet. Consent was obtained verbally from the brother who was at bedside. This was done emergently because the patient was found to be in c ardiogenic shock. The right axilla was prepped and draped in sterile fashion and allowed to dry. Using regional barrier precautions, and sterile ultrasound guidance, the Seldinger needle was placed into a minimally pulsatile axillary artery. Arterial blood flow was noted but was weak. At this point a wire was placed without difficulty and the needle was removed. After the wire was placed using typical Seldinger technique, a long 20-gauge catheter was inserted without difficulty. Pulsatile blood flow was noted and allowed to beat for 2-3 heartbeats to clear any debris. There was affixed to a syringe and sutured in place and then it was fixed to a transducer tubing with biphasic waveform noted. Blood pressure was low 78/40. A sterile dressing was applied after reapplication of chlorhexidine. Patient tolerated the procedure well with no complications. This procedure excludes critical care time Indication for Procedure: cardiogenic shock Date: 06/25/19 Provider: REHAN PRICE
--- NOTE | 2019-06-25 18:30 | PDOC CRITICAL CARE PROG REPORT ---
General Date:: 06/25/19 ICU Day:: 1 Ventilator Day:: 1 Hospital Day:: 1 Events in the past 12 to 24 Hours:: Patient was admitted overnight after respiratory leading to cardiac arrest. Has profound lactic acidosis and is in shock. Bedside critical care echo and ultrasound was done which showed dilated IVC and ejection fraction of approximately 10% with dilated cardiomyopathy mildly dilated atrium. He was placed on 8 mg of Versed and this is been discontinued to get a neurological exam. He is breathing above the ventilator rate. Oxygenation status has not been an issue. He is in renal failure with a baseline creatinine of 0.5-0.8 1-2 years ago. His girlfriend, Breann states that he has not taken his immune globulin therapy for approximately 2 to 3 weeks. States that his diarrhea has been progressive and despite multiple work-up and evaluation has not improved. He has been more sedentary and more ill in the last few weeks. Arterial catheter was placed central line was placed in the emergency room patient was started on milrinone and epinephrine. A stat echo is currently being done which confirms our concern for cardiomyopathy. CT scan of his brain shows no edema. His total downtime appears to be short although I do not have the exact time. His girlfriend Breann states that his brother provided 5 to 10 minutes of bystander CPR. Then removed from the room while EMS took over. Unfortunately I do not have those records to know how much CPR was provided after that. I do know that he was intubated with return of spontaneous circulation. He was not cooled in the emergency room but presented with hypothermia at a temp of 95 degrees Fahrenheit. Review of systems relevant to events:: Patient has had persistent diarrhea. Persistent weight loss. Has not received any immunoglobulin therapy in the last 3 weeks. Unable to provide any history secondary to his intubated comatose state. Reason for ICU Addmission:: Post cardiac arrest - Medications: Medications reviewed and adjusted accordingly: Yes Vasopressors:: Levophed at 20 mcg vasopressin 0.03, neosynephrine 180 mcg Sedation:: Was on versed, now off Physical Exam Vital Signs: Temp Pulse Resp BP Pulse Ox 98.2 F 121 H 25 H 83/72 L 67 L 06/25/19 08:00 06/25/19 08:00 06/25/19 08:00 06/25/19 08:00 06/25/19 08:44 Intake & Output 06/24/19 06/25/19 06/26/19 06:59 06:59 06:59 Intake Total 1450 2999 Output Total 875 0 Balance 575 2999 Weight 49.3 kg Weight/Height Weight 49.3 kg Height 6 ft 1 in General appearance: PRESENT: thin, other - emaciated Exam: Intubated ill emaciated toxic appearing 54-year-old black male comatose Head exam: PRESENT: atraumatic, normocephalic Eye exam: PRESENT: conjunctiva pink, PERRLA. ABSENT: conjunctival injection, nystagmus - pupils miotic but reactive, scleral icterus Ear exam: PRESENT: normal external ear exam Mouth exam: PRESENT: moist, neck supple Teeth exam: PRESENT: poor dentation Neck exam: ABSENT: carotid bruit, JVD, lymphadenopathy, thyromegaly, tracheal deviation Respiratory exam: PRESENT: clear to auscultation jackelyn Cardiovascular exam: PRESENT: +S1, +S2, tachycardia, other - Bedside critical care echo shows EF of 12-15%. Dilated IVC, mild Bi-atrial dilation, aortic root dilated with mild AI. RV down as well. [place] has minimal function. No takatsubo appearance Pulses: PRESENT: other - Pulses barely palpable. ABSENT: normal radial pulses, normal dorsalis pedis pul Vascular exam: PRESENT: pallor. ABSENT: normal capillary refill GI/Abdominal exam: PRESENT: diminished bowel sounds, firm, hypoactive bowel sounds. ABSENT: ascites, distended, organolmegaly Rectal exam: PRESENT: deferred Gentrourinary exam: PRESENT: indwelling catheter Extremities exam: ABSENT: pedal edema Musculoskeletal exam: ABSENT: deformity, dislocation Neurological exam: PRESENT: altered - Comatose on 8 mg versed Skin exam: PRESENT: dry. ABSENT: cyanosis, mottled, petechiae, rash, urticaria, vesicles Tubes/Lines: PRESENT: Endotracheal Tube, Central Line, Arterial Catheter, Other - Oral gastric tube Laboratory/Radiographs Laboratory Results: 06/25/19 05:32 06/24/19 06/24/19 06/24/19 18:57 18:57 18:57 WBC 11.9 H RBC 5.16 Hgb 15.7 Hct 49.2 MCV 95 MCH 30.3 MCHC 31.8 L RDW 15.5 H Plt Count 210 Seg Neutrophils % Not Reportable Carbonic Acid HCO3/H2CO3 Ratio ABG pH ABG pCO2 ABG pO2 ABG HCO3 ABG O2 Saturation ABG Base Excess VBG pH VBG pCO2 VBG HCO3 VBG Base Excess FiO2 Sodium 135.7 L Potassium 2.8 L* Chloride 97 L Carbon Dioxide 11 L Anion Gap 28 H BUN 25 H Creatinine Not Reportable Est GFR ( Amer) Glucose 92 Lactic Acid 13.2 H Calcium 7.6 L Magnesium Total Bilirubin 0.5 AST 38 Alkaline Phosphatase 79 Total Protein 4.4 L Albumin 2.7 L Urine Color Urine Appearance Urine pH Ur Specific [place] Urine Protein Urine Glucose (UA) Urine Ketones Urine Blood Urine Nitrite Ur Leukocyte Esterase Urine WBC (Auto) Urine RBC (Auto) 06/24/19 06/24/19 06/24/19 21:09 21:55 22:40 WBC RBC Hgb Hct MCV MCH MCHC RDW Plt Count Seg Neutrophils % Carbonic Acid Cancelled HCO3/H2CO3 Ratio Cancelled ABG pH Cancelled ABG pCO2 Cancelled ABG pO2 Cancelled ABG HCO3 Cancelled ABG O2 Saturation Cancelled ABG Base Excess Cancelled VBG pH 6.99 L* VBG pCO2 42.2 VBG HCO3 10.0 L VBG Base Excess -20.8 FiO2 Cancelled Sodium Potassium Chloride Carbon Dioxide Anion Gap BUN Creatinine Est GFR ( Amer) Glucose Lactic Acid Calcium Magnesium Total Bilirubin AST Alkaline Phosphatase Total Protein Albumin Urine Color PRINCE Urine Appearance CLOUDY Urine pH 5.0 Ur Specific [place] 1.012 Urine Protein 100 H Urine Glucose (UA) 50 H Urine Ketones NEGATIVE Urine Blood LARGE H Urine Nitrite NEGATIVE Ur Leukocyte Esterase NEGATIVE Urine WBC (Auto) 15 Urine RBC (Auto) 9 06/25/19 06/25/19 06/25/19 00:50 01:00 02:44 WBC RBC Hgb Hct MCV MCH MCHC RDW Plt Count Seg Neutrophils % Carbonic Acid 1.04 L HCO3/H2CO3 Ratio 12:1 ABG pH 7.17 L* ABG pCO2 34.7 L ABG pO2 560.6 H ABG HCO3 12.5 L ABG O2 Saturation 99.9 H ABG Base Excess -15.0 VBG pH VBG pCO2 VBG HCO3 VBG Base Excess FiO2 100% Sodium 134.7 L Potassium 2.9 L* Chloride 106 Carbon Dioxide 14 L Anion Gap 15 BUN 26 H Creatinine 2.62 H Est GFR ( Amer) 31 L Glucose 231 H Lactic Acid 4.1 H Calcium 4.4 L* Magnesium Total Bilirubin AST Alkaline Phosphatase Total Protein Albumin Urine Color Urine Appearance Urine pH Ur Specific [place] Urine Protein Urine Glucose (UA) Urine Ketones Urine Blood Urine Nitrite Ur Leukocyte Esterase Urine WBC (Auto) Urine RBC (Auto) 06/25/19 06/25/19 06/25/19 05:32 05:32 07:05 WBC Cancelled RBC Cancelled Hgb Cancelled Hct Cancelled MCV Cancelled MCH Cancelled MCHC Cancelled RDW Cancelled Plt Count Cancelled Seg Neutrophils % Cancelled Carbonic Acid 0.85 L HCO3/H2CO3 Ratio 16:1 ABG pH 7.31 L ABG pCO2 28.1 L ABG pO2 502.4 H ABG HCO3 13.7 L ABG O2 Saturation 99.9 H ABG Base Excess -11.1 VBG pH VBG pCO2 VBG HCO3 VBG Base Excess FiO2 100% Sodium 131.9 L Potassium 3.8 Chloride 102 Carbon Dioxide 18 L Anion Gap 12 BUN 27 H Creatinine 2.37 H Est GFR ( Amer) 35 L Glucose 393 H Lactic Acid Calcium 4.6 L* Magnesium 1.2 L* Total Bilirubin 0.3 AST 115 H Alkaline Phosphatase 33 L Total Protein 2.7 L Albumin 1.5 L Urine Color Urine Appearance Urine pH Ur Specific [place] Urine Protein Urine Glucose (UA) Urine Ketones Urine Blood Urine Nitrite Ur Leukocyte Esterase Urine WBC (Auto) Urine RBC (Auto) 06/25/19 06/25/19 06/25/19 07:05 07:46 07:53 WBC RBC Hgb Hct MCV MCH MCHC RDW Plt Count Seg Neutrophils % Not Reportable Carbonic Acid 0.83 L HCO3/H2CO3 Ratio 16:1 ABG pH 7.30 L ABG pCO2 27.5 L ABG pO2 261.1 H ABG HCO3 13.3 L ABG O2 Saturation 99.5 H ABG Base Excess -11.6 VBG pH VBG pCO2 VBG HCO3 VBG Base Excess FiO2 60% Sodium Potassium Chloride Carbon Dioxide Anion Gap BUN Creatinine Est GFR ( Amer) Glucose Lactic Acid 4.6 H Calcium Magnesium Total Bilirubin AST Alkaline Phosphatase Total Protein Albumin Urine Color Urine Appearance Urine pH Ur Specific [place] Urine Protein Urine Glucose (UA) Urine Ketones Urine Blood Urine Nitrite Ur Leukocyte Esterase Urine WBC (Auto) Urine RBC (Auto) 06/25/19 07:55 WBC RBC Hgb Hct MCV MCH MCHC RDW Plt Count Seg Neutrophils % Carbonic Acid 1.23 HCO3/H2CO3 Ratio 13:1 ABG pH 7.21 L ABG pCO2 40.9 ABG pO2 39.3 L* ABG HCO3 16.0 L ABG O2 Saturation 63.4 L ABG Base Excess -11.2 VBG pH VBG pCO2 VBG HCO3 VBG Base Excess FiO2 60% Sodium Potassium Chloride Carbon Dioxide Anion Gap BUN Creatinine Est GFR ( Amer) Glucose Lactic Acid Calcium Magnesium Total Bilirubin AST Alkaline Phosphatase Total Protein Albumin Urine Color Urine Appearance Urine pH Ur Specific [place] Urine Protein Urine Glucose (UA) Urine Ketones Urine Blood Urine Nitrite Ur Leukocyte Esterase Urine WBC (Auto) Urine RBC (Auto) 06/24/19 06/24/19 18:57 18:57 Creatine Kinase 456 H CK-MB (CK-2) 6.04 H Troponin I 0.264 Impressions: Cervical Spine CT 06/24/19 19:03 IMPRESSION: No CT evidence for acute C-spine osseous abnormality. Degenerative changes, as above. Straightening of the normal lordosis may reflect muscle spasm/strain. Partial visualization of endotracheal and enteric tubes. The proximal portion of the enteric tube may be partially coiled in the pharynx. Correlate with physical exam. TECHNICAL DOCUMENTATION: Quality ID # [id number]: Final reports with documentation of one or more dose reduction techniques (e.g., Automated exposure control, adjustment of the mA and/or kV according to patient size, use of iterative reconstruction technique) copyright 2011 [employer]- All Rights Reserved Head CT 06/24/19 19:03 IMPRESSION: 1. No acute intracranial findings. 2. Redundant loops of nasogastric tube extends into the oropharynx and hypopharynx; consider repositioning Chest X-Ray 06/25/19 00:00 IMPRESSION: 1. Stable appearance of the chest. KUB X-Ray 06/25/19 01:26 IMPRESSION: Support lines and tubes are in place as described above. All labs, radiographs, diagnostic studies and EKGs were personally reviewed: Yes In addition, reports of radiographic and diagnostic studies were read: Yes Assessment and Plan - Diagnosis (1) Cardiogenic shock Is this a current diagnosis for this admission?: Yes (2) Cardiac arrest Is this a current diagnosis for this admission?: Yes (3) Respiratory arrest Is this a current diagnosis for this admission?: Yes (4) Lactic acidosis Is this a current diagnosis for this admission?: Yes (5) Metabolic acidosis Is this a current diagnosis for this admission?: Yes (6) Severe protein-calorie malnutrition (Garcia: less than 60% of standard weight) Is this a current diagnosis for this admission?: Yes (7) Acute renal failure Is this a current diagnosis for this admission?: Yes (8) CVID (common variable immunodeficiency) Is this a current diagnosis for this admission?: Yes (9) Hypokalemia Is this a current diagnosis for this admission?: Yes Plan Summary: Patient is extremely ill and toxic. Has spent significant time at the bedside in manipulation of medications and improvement of hemodynamic parameters. He has significant issues which will be addressed in a systems format below. From a respiratory standpoint he has mild respiratory alkalosis and surprisingly good PO2. We will reduce his FiO2 and his PEEP. We will need to watch for any aspiration events because of the cardiac arrest. His chest x-ray is clear. To attempt to keep PCO2 normalized. From an infectious disease standpoint he does not appear to have any infection sources but will be prudent to watch for this. Unfortunately I do not have the ability to obtain procalcitonin which would be helpful in this situation. Prudence will need to be maintained to look for any occult infection. From a cardiac standpoint patient's EF is approximately 10 to 18%. Given the dilation without hypertrophy this appears to be possibly subacute and may also be transiently related to the cardiac arrest. We have started him on milrinone and hopes to achieve some improvement in his hemodynamic status. Of note his ca rdiac index is 1.5 with an SVR that is extremely high compatible with cardiogenic shock. I am concerned, given his nutritional depletion that this may be a form of thiamine (B1) deficiency and have started high-dose thiamine. Also added vitamin C. I did discuss this case with the [facility] because of the severe cardiogenic shock. He would be a candidate for an Impella however we need to stabilize his hemodynamics even before transfer. Unfortunately due to the weather in the area we are unable to fly the patient there. I have discussed this with the family and they are understanding. We do have the capability, with inotropic support, to manage this patient but will be sure to consider transfer once stabilization has occurred. His premorbid protein calorie malnutrition it is likely that he has had some underlying cardiomyopathy. Hematologic: Patient has obvious anemia related to most likely marrow dysfunction. We will continue to follow. Given his unstable anticoagulation will hold on any subcutaneous prophylactic heparin therapy. 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 He has not had a treatment for the approximately 3 to 4 weeks. We will try to speak with immunology to obtain further commentary. Given the CV ID it is possible that he has underlying malignancy and granulomatous disease. I am unable to send him for a CAT scan of his chest at this point secondary to his unstable in this. Endocrine: Have sent for TSH ACTH and cortisol. Have prophylactically started him on Solu-Cortef given his shock state. Follow glucose and watch for hypo-and hyperglycemia Renal: Patient is in acute renal failure and may require dialysis. We will continue to monitor his course and care. He is volume replete best based on IVC however based on PA catheter numbers appears to require require some fluid. We will supply albumin. Will be prudent to watch for electrolyte abnormalities. Metabolic: Patient has lactic acidosis and there is some subtle improvement based on repeat labs. Will need to follow this along with other electrolytes. Alimentary: Obviously patient is severely protein calorie malnourished. He has been unable to absorb any nutrition secondary to his C VID area will consider enteral nutrition however he may need additional support via TPN. Neurologic: Obviously patient is comatose. He normally would be a candidate for hypothermic therapy however we do not have the machinery to support this. Additionally he is too ill for transfer. Did present with hypothermia and will try to maintain normothermia while here. While at the bedside his blood pressure improved and he was noted to have down going left-sided gaze. Ativan was given and concern for seizure. Will start Keppra at this point and watch for neurological changes. He has not received any sedation but had been on 8 mg of Versed on my arrival this morning. Have discontinued this and will try to achieve a better neurological exam. Total critical care time excluding procedures 210 minutes Critical Time Critical Time (minutes): 210 Level of Care: ICU -: 1. The care of a critical patient is a dynamic process. This note is a re presentative synopsis but static in nature. The timeframe for treatments given in order is not necessary the actual time these treatments may have been done. 2. This patient requires critical care secondary to ongoing requirements for therapy not offered or safe outside the critical care environment. Transfer to a lower level of care with altered life or limb morbidity and mortality. 3. Multidisciplinary rounds completed. 4. ABCDE bundle addressed. 5. MPOA: Mother, has SO: Breann
[2019-06-25] MEDS ORDERED: NORMAL SALINE INJ/PF 0.9% 10 ML SDV IV PRN (18:32)
[2019-06-25] MEDS ORDERED: ALBUMIN HUMAN 12.5 GM/50 ML RTUINJ IV ONE (18:46)
[2019-06-25] MEDS ORDERED: ASCORBIC ACID 500 MG TABLET PO ONE (19:00)
[2019-06-25] MEDS: ASCORBIC ACID 500 MG TABLET PO SCH (19:00)
[2019-06-25] MEDS ORDERED: ALBUMIN HUMAN 500 ML IV ONE (19:30)
[2019-06-25] MEDS ORDERED: LEVETIRACETAM 1,000 MG in NORMAL SALINE 100 ML IV SCH (20:00)
[2019-06-25] MEDS: WATER IV PRN ×6 (20:20→21:11)
[2019-06-25] MEDS: DEXTROSE 5% IV PRN ×6 (20:20→21:11)
[2019-06-25] MEDS: EPINEPHRINE IV PRN ×2 (20:20)
[2019-06-25 20:42] LABS: ALBUMIN 1.5 g/dL (3.5-5.0); ALKALINE PHOSPHATASE 46 U/L (38-126); ASPARTATE AMINO TRANSFERASE 246 U/L (17-59); BILIRUBIN,DIRECT 0.5 mg/dL (0.0-0.4); BILIRUBIN,TOTAL 0.7 mg/dL (0.2-1.3); BLOOD UREA NITROGEN 30 mg/dL (7-20); CARBON DIOXIDE 14 mmol/L (22-30); CHLORIDE 90 mmol/L (98-107); PHOSPHORUS 3.8 mg/dL (2.5-4.5); TOTAL PROTEIN 3.3 g/dL (6.3-8.2)
[2019-06-25 20:44] LABS: POTASSIUM 3.8 mmol/L (3.6-5.0)
[2019-06-25] MEDS: DEXTROSE 5%-WATER 250 ML with VASOPRESSIN 100 UNIT IV PRN ×2 (20:45)
[2019-06-25 20:48] LABS: ANION GAP 15 (5-19)
[2019-06-25 20:51] LABS: CALCIUM 4.7 mg/dL (8.4-10.2); GLUCOSE 401 mg/dL (75-110)
[2019-06-25] MEDS: NOREPINEPHRINE BITARTRATE IV PRN ×2 (20:55)
[2019-06-25] MEDS ORDERED: LEVETIRACETAM 1000 MG/NACL-ISO 1,000 MG/100 ML RTUPB IV ONE (21:00)
[2019-06-25] MEDS ORDERED: VANCOMYCIN HCL 0 MG in DEXTROSE 5%-WATER 250 ML IV NR (21:00)
[2019-06-25] MEDS: PHENYLEPHRINE HCL IV PRN ×2 (21:11)
[2019-06-25] MEDS: DEXTROSE 5%-WATER 1000 ML 1,000 ML with SODIUM BICARBONATE 150 MEQ IV PRN ×2 (21:18)
[2019-06-25] MEDS ORDERED: DEXMEDETOMIDINE IN 0.9 % NACL 400 MCG/100 ML RTUPB IV ONE (21:57)
[2019-06-25] MEDS: MICAFUNGIN SODIUM 100 MG in NORMAL SALINE 100 ML IV SCH (22:22)
[2019-06-25] MEDS: DEXMEDETOMIDINE IN 0.9 % NACL 400 MCG/100 ML RTUPB IV PRN (22:24)
[2019-06-25] MEDS: INSULIN, REGULAR 100 UNIT/100 ML NORMAL SALINE IV PRN ×2 (22:58)
[2019-06-25] MEDS ORDERED: SODIUM CHLORIDE 3% 500 ML IV ONE ×2 (23:00)
[2019-06-25] MEDS ORDERED: CALCIUM GLUCONATE 2,222 MG in DEXTROSE 5%-WATER 100 ML IV ONE (23:00)
[2019-06-25] MEDS: CEFEPIME 1 GM/D5W RTU 1 GM/50 ML RTUPB IV SCH (23:35)
[2019-06-26] MEDS ORDERED: VANCOMYCIN HCL 1,000 MG in DEXTROSE 5%-WATER 250 ML IV SCH ×2
[2019-06-26 00:53] LABS: POTASSIUM 3.5 mmol/L (3.6-5.0)
[2019-06-26] MEDS: MAGNESIUM SULFATE/D5W 1 GM/100 ML RTUPB IV SCH (01:05)
[2019-06-26] MEDS: PHENYLEPHRINE HCL IV PRN ×10 (02:06→23:30)
[2019-06-26] MEDS: DEXTROSE 5% IV PRN ×20 (02:06→23:30)
[2019-06-26] MEDS: WATER IV PRN ×20 (02:06→23:30)
[2019-06-26 02:35] LABS: ARTERIAL BLOOD BASE EXCESS -13.8 mmol/L; ARTERIAL BLOOD FIO2 40%; ARTERIAL BLOOD O2 SATURATION 90.5 % (94-98); ARTERIAL BLOOD PCO2 23.3 mmHg (35-45); ARTERIAL BLOOD PH 7.29 (7.35-7.45); ARTERIAL BLOOD PO2 63.4 mmHg (80-100); ARTERIAL BLOOD TOTAL CO2 11.7 mmol/L (23-27)
[2019-06-26 03:01] LABS: ANION GAP 13 (5-19); BLOOD UREA NITROGEN 29 mg/dL (7-20); CARBON DIOXIDE 14 mmol/L (22-30); CHLORIDE 88 mmol/L (98-107); GLUCOSE 387 mg/dL (75-110); PHOSPHORUS 3.7 mg/dL (2.5-4.5)
[2019-06-26 03:11] LABS: CALCIUM 5.4 mg/dL (8.4-10.2)
[2019-06-26 03:16] LABS: POTASSIUM 3.2 mmol/L (3.6-5.0)
[2019-06-26] MEDS: NOREPINEPHRINE BITARTRATE IV PRN ×6 (03:25→22:36)
[2019-06-26] MEDS: CALCIUM GLUCONATE 1000 MG/10 ML INJ IV SCH ×2 (04:05→04:58)
[2019-06-26] MEDS ORDERED: POTASSI CL 20 MEQ/50 ML RIDER 20 MEQ/50 ML RTUPB IV ONE (04:06)
[2019-06-26] MEDS ORDERED: CALCIUM GLUCONATE 1000 MG/10 ML INJ IV ONE ×3 (04:07→18:00)
[2019-06-26] MEDS: POTASSIUM CHLORIDE 20 MEQ/50 ML RTU IV SCH ×2 (04:57→06:04)
[2019-06-26] MEDS ORDERED: ALBUMIN HUMAN 12.5 GM/50 ML RTUINJ IV ONE (05:00)
[2019-06-26] MEDS: FOLIC ACID 1 MG in NORMAL SALINE 50 ML IV SCH ×3 (05:04→22:27)
[2019-06-26] MEDS: HYDROCORTISONE SOD SUCCINATE INJ/PF 100 MG/2 ML SDV IV SCH ×3 (05:09→22:27)
[2019-06-26 06:30] LABS: ALBUMIN 1.5 g/dL (3.5-5.0); ALKALINE PHOSPHATASE 38 U/L (38-126); ASPARTATE AMINO TRANSFERASE 201 U/L (17-59); BILIRUBIN,DIRECT 0.7 mg/dL (0.0-0.4); BILIRUBIN,TOTAL 0.9 mg/dL (0.2-1.3); BLOOD UREA NITROGEN 29 mg/dL (7-20); CARBON DIOXIDE 13 mmol/L (22-30); CHLORIDE 91 mmol/L (98-107); GLUCOSE 294 mg/dL (75-110); PHOSPHORUS 4.1 mg/dL (2.5-4.5)
[2019-06-26 06:32] LABS: ANION GAP 14 (5-19)
[2019-06-26 06:38] LABS: HEMATOCRIT 31.1 % (37.9-51.0); MEAN CORPUSCULAR HEMOGLOBIN 30.8 pg (27.0-33.4); MEAN CORPUSCULAR HGB CONC 34.3 g/dL (32.0-36.0); MEAN CORPUSCULAR VOLUME 90 fl (80-97); RED BLOOD COUNT 3.45 10^6/uL (4.35-5.55); WHITE BLOOD COUNT 8.1 10^3/uL (4.0-10.5)
[2019-06-26 06:50] LABS: CALCIUM 5.9 mg/dL (8.4-10.2)
[2019-06-26 07:54] LABS: ABSOLUTE LYMPHOCYTES# (MANUAL) 0.9 10^3/uL (0.5-4.7); ABSOLUTE MONOCYTES # (MANUAL) 0.7 10^3/uL (0.1-1.4); BASOPHILS % (MANUAL) 0 % (0-2); EOSINOPHILS % (MANUAL) 0 % (0-6); LYMPHOCYTES % (MANUAL) 11 % (13-45); MONOCYTES % (MANUAL) 9 % (3-13); TOTAL CELLS COUNTED 100
[2019-06-26] MEDS ORDERED: NORMAL SALINE 250 ML IV PRN ×2 (07:55)
[2019-06-26 07:56] LABS: ANISOCYTOSIS SLIGHT; PLATELET COMMENT DECREASED
[2019-06-26] MEDS ORDERED: LEVETIRACETAM 500 MG/NACL-ISO 500 MG/100 ML RTUPB IV SCH (08:00)
[2019-06-26 08:01] LABS: PLATELET COUNT 16 10^3/uL (150-450)
[2019-06-26 08:05] LABS: HEMOGLOBIN 10.6 g/dL (13.5-17.0)
[2019-06-26] MEDS: LEVETIRACETAM 500 MG/NACL-ISO 500 MG/100 ML RTUPB IV SCH ×2 (08:18→22:27)
[2019-06-26] MEDS: MILRINONE LACTATE/D5W 20 MG/100 ML RTUINJ IV PRN (09:04)
[2019-06-26] MEDS: FAMOTIDINE INJ/PF 20 MG/2 ML SDV IV SCH ×2 (09:05→22:27)
[2019-06-26] MEDS: ASCORBIC ACID 500 MG TABLET PO SCH ×2 (09:07→17:05)
[2019-06-26] MEDS: THIAMINE HCL 500 MG in NORMAL SALINE 250 ML IV SCH (09:13)
[2019-06-26] MEDS: MULTIVITAMIN ORAL LIQUID 60 ML PO SCH (09:14)
[2019-06-26] MEDS: ZINC SULFATE 220 MG CAPSULE PO SCH (09:45)
[2019-06-26] MEDS ORDERED: POTASSIUM CHLORIDE 20 MEQ PACKET PO SCH (10:00)
[2019-06-26 10:46] LABS: ANION GAP 13 (5-19); BLOOD UREA NITROGEN 29 mg/dL (7-20); CARBON DIOXIDE 14 mmol/L (22-30); CHLORIDE 91 mmol/L (98-107); GLUCOSE 271 mg/dL (75-110); PHOSPHORUS 3.9 mg/dL (2.5-4.5); POTASSIUM 3.7 mmol/L (3.6-5.0)
[2019-06-26 10:57] LABS: CALCIUM 5.4 mg/dL (8.4-10.2)
[2019-06-26] MEDS: DEXMEDETOMIDINE IN 0.9 % NACL 400 MCG/100 ML RTUPB IV PRN (11:19)
[2019-06-26] MEDS: EPINEPHRINE IV PRN ×4 (11:27→20:25)
--- NOTE | 2019-06-26 11:37 | EKG REPORT ---
SEVERITY:- ABNORMAL ECG - SINUS TACHYCARDIA LEFT BUNDLE BRANCH BLOCK : Confirmed by: Madhuri Marmolejo MD 26-Jun-2019 11:36:45
--- NOTE | 2019-06-26 11:48 | PDOC CRITICAL CARE PROG REPORT ---
General Date:: 06/26/19 ICU Day:: 2 Ventilator Day:: 2 Hospital Day:: 3 Events in the past 12 to 24 Hours:: Multiple pressors, on vent Review of systems relevant to events:: Hypotension with attempting to wean pressors. Reason for ICU Addmission:: Post cardiac arrest - Medications: Medications reviewed and adjusted accordingly: Yes Vasopressors:: Levophed at 20 mcg vasopressin 0.03, neosynephrine 180 mcg Sedation:: Precidex. Physical Exam Vital Signs: Temp Pulse Resp BP Pulse Ox 97.7 F 135 H 22 H 98/80 L 89 L 06/26/19 10:16 06/26/19 10:00 06/26/19 10:16 06/26/19 10:16 06/26/19 10:00 Intake & Output 06/25/19 06/26/19 06/27/19 06:59 06:59 06:59 Intake Total 1450 48805.4 935 Output Total 875 1055 20 Balance 575 04643.4 915 Weight 49.3 kg 60.2 kg Weight/Height Weight 60.2 kg Height 6 ft 1 in General appearance: PRESENT: no acute distress Exam: Sedated Head exam: PRESENT: atraumatic, normocephalic Eye exam: PRESENT: conjunctiva pink, EOMI, PERRLA. ABSENT: scleral icterus Ear exam: PRESENT: normal external ear exam Mouth exam: PRESENT: other - ETT and OG present Neck exam: ABSENT: carotid bruit, JVD, lymphadenopathy, thyromegaly Respiratory exam: PRESENT: crackles, rhonchi, unlabored Cardiovascular exam: PRESENT: tachycardia Vascular exam: PRESENT: normal capillary refill GI/Abdominal exam: PRESENT: normal bowel sounds, soft. ABSENT: distended, guarding, mass, organolmegaly, rebound, tenderness Rectal exam: PRESENT: deferred Gentrourinary exam: PRESENT: indwelling catheter Musculoskeletal exam: PRESENT: normal inspection Neurological exam: PRESENT: other - Sedated Skin exam: PRESENT: normal color Tubes/Lines: PRESENT: Endotracheal Tube, Central Line, Arterial Catheter, Nasogastic Tube Laboratory/Radiographs Laboratory Results: 06/26/19 05:50 06/26/19 10:00 06/25/19 06/25/19 06/25/19 11:38 14:20 14:20 WBC RBC Hgb Hct MCV MCH MCHC RDW Plt Count Seg Neutrophils % Carbonic Acid 1.39 H HCO3/H2CO3 Ratio 13:1 ABG pH 7.22 L ABG pCO2 46.1 H ABG pO2 50.2 L ABG HCO3 18.5 L ABG O2 Saturation 78.1 L ABG Base Excess -9.0 FiO2 100% Sodium 125.3 L Potassium 2.7 L* D Chloride 97 L Carbon Dioxide 14 L Anion Gap 14 BUN 28 H Creatinine 2.72 H Est GFR ( Amer) 29 L Glucose 352 H Lactic Acid 3.9 H Calcium 4.9 L* Ionized Calcium Judy Phosphorus Magnesium 1.9 Total Bilirubin 0.4 AST 206 H Alkaline Phosphatase 44 Total Protein 3.2 L Albumin 1.5 L Blood Type 06/25/19 06/25/19 06/26/19 20:05 20:05 00:15 WBC RBC Hgb Hct MCV MCH MCHC RDW Plt Count Seg Neutrophils % Carbonic Acid HCO3/H2CO3 Ratio ABG pH ABG pCO2 ABG pO2 ABG HCO3 ABG O2 Saturation ABG Base Excess FiO2 Sodium 119.4 L* Potassium 3.8 D 3.5 L Chloride 90 L Carbon Dioxide 14 L Anion Gap 15 BUN 30 H Creatinine 2.65 H Est GFR ( Amer) 30 L Glucose 401 H* 415 H* Lactic Acid 4.0 H Calcium 4.7 L* Ionized Calcium Judy Phosphorus 3.8 Magnesium 1.7 Total Bilirubin 0.7 AST 246 H Alkaline Phosphatase 46 Total Protein 3.3 L Albumin 1.5 L Blood Type 06/26/19 06/26/19 06/26/19 02:20 02:20 02:20 WBC RBC Hgb Hct MCV MCH MCHC RDW Plt Count Seg Neutrophils % Carbonic Acid 0.70 L HCO3/H2CO3 Ratio 15:1 ABG pH 7.29 L ABG pCO2 23.3 L ABG pO2 63.4 L ABG HCO3 11.0 L ABG O2 Saturation 90.5 L ABG Base Excess -13.8 FiO2 40% Sodium 114.8 L* Potassium 3.2 L Chloride 88 L Carbon Dioxide 14 L Anion Gap 13 BUN 29 H Creatinine 2.45 H Est GFR ( Amer) 33 L Glucose 387 H Lactic Acid 3.9 H Calcium 5.4 L* Ionized Calcium Judy 0.98 L Phosphorus 3.7 Magnesium 2.6 H Total Bilirubin AST Alkaline Phosphatase Total Protein Albumin Blood Type 06/26/19 06/26/19 06/26/19 05:50 05:50 05:50 WBC 8.1 RBC 3.45 L Hgb 10.6 L D Hct 31.1 L MCV 90 MCH 30.8 MCHC 34.3 RDW 15.0 H Plt Count 16 L* Seg Neutrophils % Not Reportable Carbonic Acid HCO3/H2CO3 Ratio ABG pH ABG pCO2 ABG pO2 ABG HCO3 ABG O2 Saturation ABG Base Excess FiO2 Sodium 117.9 L* Potassium 4.0 Chloride 91 L Carbon Dioxide 13 L Anion Gap 14 BUN 29 H Creatinine 2.63 H Est GFR ( Amer) 31 L Glucose 294 H Lactic Acid 4.2 H Calcium 5.9 L* Ionized Calcium Judy Phosphorus 4.1 Magnesium 2.4 H Total Bilirubin 0.9 AST 201 H Alkaline Phosphatase 38 Total Protein 3.0 L Albumin 1.5 L Blood Type 06/26/19 06/26/19 10:00 10:27 WBC RBC Hgb Hct MCV MCH MCHC RDW Plt Count Seg Neutrophils % Carbonic Acid HCO3/H2CO3 Ratio ABG pH ABG pCO2 ABG pO2 ABG HCO3 ABG O2 Saturation ABG Base Excess FiO2 Sodium 117.7 L* Potassium 3.7 Chloride 91 L Carbon Dioxide 14 L Anion Gap 13 BUN 29 H Creatinine 2.67 H Est GFR ( Amer) 30 L Glucose 271 H Lactic Acid Calcium 5.4 L* Ionized Calcium Judy Phosphorus 3.9 Magnesium 2.3 Total Bilirubin AST Alkaline Phosphatase Total Protein Albumin Blood Type O POSITIVE 06/24/19 06/24/19 18:57 18:57 Creatine Kinase 456 H CK-MB (CK-2) 6.04 H Troponin I 0.264 Impressions: Cervical Spine CT 06/24/19 19:03 IMPRESSION: No CT evidence for acute C-spine osseous abnormality. Degenerative changes, as above. Straightening of the normal lordosis may reflect muscle spasm/strain. Partial visualization of endotracheal and enteric tubes. The proximal portion of the enteric tube may be partially coiled in the pharynx. Correlate with physical exam. TECHNICAL DOCUMENTATION: Quality ID # [id number]: Final reports with documentation of one or more dose reduction techniques (e.g., Automated exposure control, adjustment of the mA and/or kV according to patient size, use of iterative reconstruction technique) copyright 2011 [employer]- All Rights Reserved Head CT 06/24/19 19:03 IMPRESSION: 1. No acute intracranial findings. 2. Redundant loops of nasogastric tube extends into the oropharynx and hypopharynx; consider repositioning KUB X-Ray 06/25/19 01:26 IMPRESSION: Support lines and tubes are in place as described above. Chest X-Ray 06/25/19 09:56 IMPRESSION: 1. Endotracheal tube has been slightly advanced as described. 2. Left-sided [place]-Willie catheter has been placed. Catheter tip is wedge new left lower lobe pulmonary artery. 3. No other interval change in the chest. All labs, radiographs, diagnostic studies and EKGs were personally reviewed: Yes In addition, reports of radiographic and diagnostic studies were read: Yes Assessment and Plan - Diagnosis (1) Acute renal failure Qualifiers: Acute renal failure type: unspecified Qualified Code(s): N17.9 - Acute kidney failure, unspecified Is this a current diagnosis for this admission?: Yes Plan: Support kidneys as much as possible. Avoid nephrotoxic meds. Vancomcin is renally dosed but cultures dont as yet support use. (2) CVID (common variable immunodeficiency) Is this a current diagnosis for this admission?: Yes Plan: Chronic and the common variable involved in his illness. (3) Cardiac arrest Is this a current diagnosis for this admission?: Yes Plan: The sequelae is potentially devastating given his renal and neuro status. Hopefully in the next day or 2 we will have a better idea of his neuro prognosis. (4) Cardiogenic shock Is this a current diagnosis for this admission?: Yes Plan: On multiple pressors. We will try to wean more detrimental pressors such as vasopressin and levophed first. (5) COPD (chronic obstructive pulmonary disease) with chronic bronchitis Is this a current diagnosis for this admission?: Yes Plan: Currently not active Critical Time Critical Time (minutes): 45 Level of Care: ICU Anticipated discharge: Acute Rehab Within: Other -: 1. The care of a critical patient is a dynamic process. This note is a public service representative synopsis but static in nature. The timeframe for treatments given in order is not necessary the actual time these treatments may have been done. 2. This patient requires critical care secondary to ongoing requirements for t herapy not offered or safe outside the critical care environment. Transfer to a lower level of care with altered life or limb morbidity and mortality. 3. Multidisciplinary rounds completed. 4. ABCDE bundle addressed.
[2019-06-26] MEDS ORDERED: CALCIUM GLUCONATE 2,000 MG in DEXTROSE 5%-WATER 100 ML IV ONE (12:30)
[2019-06-26] MEDS: CEFEPIME 1 GM/D5W RTU 1 GM/50 ML RTUPB IV SCH (13:09)
[2019-06-26] MEDS: INSULIN, REGULAR 100 UNIT/100 ML NORMAL SALINE IV PRN ×2 (13:10)
[2019-06-26] MEDS: DEXTROSE 5%-WATER 1000 ML 1,000 ML with SODIUM BICARBONATE 150 MEQ IV PRN ×2 (14:33)
[2019-06-26] MEDS ORDERED: SODIUM CHLORIDE 3% 500 ML IV ONE (15:00)
[2019-06-26 16:36] LABS: ANION GAP 14 (5-19); BLOOD UREA NITROGEN 30 mg/dL (7-20); CARBON DIOXIDE 14 mmol/L (22-30); CHLORIDE 89 mmol/L (98-107); GLUCOSE 257 mg/dL (75-110); PHOSPHORUS 3.8 mg/dL (2.5-4.5); POTASSIUM 3.5 mmol/L (3.6-5.0)
--- NOTE | 2019-06-26 18:17 | Progress Note ---
Provider Note Provider Note: Nursing pointed out mild mottling on both legs. Abdomen more tense. Abdominal compartment pressures check with CVP line hooked up to lomax with 60cc sterile saline introduced and clamped to form a column of water. Abdominal pressures measured at 19. Continue to observe. Mottleing most likely due to vasocostriction. Critical care time 20 minutes.
[2019-06-26 18:42] LABS: ANION GAP 13 (5-19); BLOOD UREA NITROGEN 29 mg/dL (7-20); CARBON DIOXIDE 15 mmol/L (22-30); CHLORIDE 88 mmol/L (98-107); GLUCOSE 246 mg/dL (75-110); PHOSPHORUS 3.9 mg/dL (2.5-4.5); POTASSIUM 3.4 mmol/L (3.6-5.0)
[2019-06-26 18:50] LABS: CALCIUM 5.7 mg/dL (8.4-10.2)
[2019-06-26 20:19] LABS: C DIFFICILE GDH NEGATIVE (NEGATIVE)
[2019-06-26 21:36] LABS: IGG SUBCLASS 1 31 mg/dL (248-810); IGG SUBCLASS 2 21 mg/dL (130-555); IGG SUBCLASS 3 4 mg/dL (15-102)
[2019-06-26] MEDS: MICAFUNGIN SODIUM 100 MG in NORMAL SALINE 100 ML IV SCH (22:27)
[2019-06-26 22:34] LABS: HEMATOCRIT 26.5 % (37.9-51.0); HEMOGLOBIN 9.1 g/dL (13.5-17.0); MEAN CORPUSCULAR HEMOGLOBIN 30.5 pg (27.0-33.4); MEAN CORPUSCULAR HGB CONC 34.2 g/dL (32.0-36.0); MEAN CORPUSCULAR VOLUME 89 fl (80-97); RED BLOOD COUNT 2.97 10^6/uL (4.35-5.55); WHITE BLOOD COUNT 12.4 10^3/uL (4.0-10.5)
[2019-06-26 22:38] LABS: PLATELET COUNT 24 10^3/uL (150-450)
[2019-06-26 22:53] LABS: ANION GAP 15 (5-19); BLOOD UREA NITROGEN 30 mg/dL (7-20); CARBON DIOXIDE 14 mmol/L (22-30); CHLORIDE 87 mmol/L (98-107); GLUCOSE 216 mg/dL (75-110); PHOSPHORUS 3.9 mg/dL (2.5-4.5); POTASSIUM 3.4 mmol/L (3.6-5.0)
[2019-06-26 23:05] LABS: CALCIUM 5.7 mg/dL (8.4-10.2)
[2019-06-27] MEDS: INSULIN, REGULAR 100 UNIT/100 ML NORMAL SALINE IV PRN ×2 (00:28)
[2019-06-27] MEDS: CEFEPIME 1 GM/D5W RTU 1 GM/50 ML RTUPB IV SCH ×2 (00:29→11:10)
[2019-06-27 03:14] LABS: BLOOD UREA NITROGEN 30 mg/dL (7-20); CARBON DIOXIDE 15 mmol/L (22-30); CHLORIDE 89 mmol/L (98-107); GLUCOSE 141 mg/dL (75-110); PHOSPHORUS 3.7 mg/dL (2.5-4.5); POTASSIUM 3.5 mmol/L (3.6-5.0)
[2019-06-27 03:15] LABS: ANION GAP 13 (5-19)
[2019-06-27 03:22] LABS: CALCIUM 5.7 mg/dL (8.4-10.2)
[2019-06-27] MEDS: PHENYLEPHRINE HCL IV PRN ×8 (04:59→20:59)
[2019-06-27] MEDS: WATER IV PRN ×12 (04:59→20:59)
[2019-06-27] MEDS: DEXTROSE 5% IV PRN ×12 (04:59→20:59)
[2019-06-27] MEDS: DEXMEDETOMIDINE IN 0.9 % NACL 400 MCG/100 ML RTUPB IV PRN (05:47)
[2019-06-27] MEDS ORDERED: MILRINONE LACTATE/D5W 20 MG/100 ML RTUINJ IV PRN (06:06)
[2019-06-27] MEDS: HYDROCORTISONE SOD SUCCINATE INJ/PF 100 MG/2 ML SDV IV SCH ×3 (06:07→21:49)
[2019-06-27] MEDS: FOLIC ACID 1 MG in NORMAL SALINE 50 ML IV SCH ×3 (06:07→21:49)
[2019-06-27] MEDS: DEXTROSE 5%-WATER 1000 ML 1,000 ML with SODIUM BICARBONATE 150 MEQ IV PRN ×4 (06:54→23:51)
[2019-06-27 07:14] LABS: HEMOGLOBIN 8.9 g/dL (13.5-17.0); MEAN CORPUSCULAR HEMOGLOBIN 30.4 pg (27.0-33.4); MEAN CORPUSCULAR HGB CONC 34.1 g/dL (32.0-36.0); MEAN CORPUSCULAR VOLUME 89 fl (80-97); RED BLOOD COUNT 2.91 10^6/uL (4.35-5.55); WHITE BLOOD COUNT 13.2 10^3/uL (4.0-10.5)
[2019-06-27 07:16] LABS: PLATELET COUNT 19 10^3/uL (150-450)
[2019-06-27 07:26] LABS: ANION GAP 14 (5-19); BLOOD UREA NITROGEN 31 mg/dL (7-20); CARBON DIOXIDE 15 mmol/L (22-30); CHLORIDE 87 mmol/L (98-107); GLUCOSE 169 mg/dL (75-110); PHOSPHORUS 3.6 mg/dL (2.5-4.5); POTASSIUM 3.4 mmol/L (3.6-5.0)
[2019-06-27 07:40] LABS: CALCIUM 5.3 mg/dL (8.4-10.2)
[2019-06-27 07:42] LABS: ABSOLUTE LYMPHOCYTES# (MANUAL) 0.4 10^3/uL (0.5-4.7); ABSOLUTE MONOCYTES # (MANUAL) 0.8 10^3/uL (0.1-1.4); BASOPHILS % (MANUAL) 0 % (0-2); EOSINOPHILS % (MANUAL) 0 % (0-6); LYMPHOCYTES % (MANUAL) 3 % (13-45); METAMYELOCYTES % (MANUAL) 1 % (0-1); MONOCYTES % (MANUAL) 6 % (3-13); SEGMENTED NEUTROPHILS % (MAN) 90 % (42-78); TOTAL CELLS COUNTED 100; TOXIC GRANULATION 1+; TOXIC VACUOLATION PRESENT
[2019-06-27 07:43] LABS: ANISOCYTOSIS SLIGHT
[2019-06-27 07:45] LABS: PLATELET COMMENT DECREASED
[2019-06-27] MEDS ORDERED: CALCIUM GLUCONATE 1000 MG/10 ML INJ IV ONE ×3 (08:16→18:17)
[2019-06-27 08:40] LABS: INTERNATIONAL RATION (INR) 1.31; PROTHROMBIN TIME 16.4 SEC (11.4-15.4)
--- NOTE | 2019-06-27 08:43 | PDOC CRITICAL CARE PROG REPORT ---
General Date:: 06/27/19 ICU Day:: 3 Ventilator Day:: 3 Hospital Day:: 4 Events in the past 12 to 24 Hours:: Tryng to further wean pressors. Some progress. Need to assess neuro status Review of systems relevant to events:: Neuro no function but on precedex. Kidneys unchanged, abd less distended. Reason for ICU Addmission:: Post cardiac arrest - Medications: Medications reviewed and adjusted accordingly: Yes Sedation:: Precedex, now on hold. Physical Exam Vital Signs: Temp Pulse Resp BP Pulse Ox 98.2 F 141 H 23 H 91/71 L 100 06/27/19 08:00 06/27/19 08:00 06/27/19 08:00 06/27/19 08:00 06/27/19 08:00 Intake & Output 06/26/19 06/27/19 06/28/19 06:59 06:59 06:59 Intake Total 04666.4 8400.2 Output Total 1055 1018 10 Balance 13292.4 7382.2 -10 Weight 60.2 kg 69.2 kg Weight/Height Weight 69.2 kg Height 6 ft 1 in Exam: On Precidex but neuro function of note. Head exam: PRESENT: atraumatic, normocephalic Eye exam: PRESENT: conjunctiva pink, EOMI, PERRLA. ABSENT: scleral icterus Ear exam: PRESENT: normal external ear exam Mouth exam: PRESENT: moist, tongue midline Respiratory exam: PRESENT: crackles, rhonchi - Both on R side, unlabored Cardiovascular exam: PRESENT: tachycardia Pulses: PRESENT: normal dorsalis pedis pul Vascular exam: PRESENT: normal capillary refill GI/Abdominal exam: PRESENT: distended, other - Less tense than yesterday, last abdomanal pressure 17. Rectal exam: PRESENT: deferred Gentrourinary exam: PRESENT: scrotal swelling, indwelling catheter Extremities exam: PRESENT: other - Mild mottling of legs. Neurological exam: PRESENT: other - No neuro functioning. Precedex on hold and will continue to assess neuro function Skin exam: PRESENT: other - Venous mottling of legs as mentioned. Tubes/Lines: PRESENT: Endotracheal Tube, Central Line, Arterial Catheter, Nasog astic Tube, Other - PA catheter Laboratory/Radiographs Laboratory Results: 06/27/19 06:45 06/27/19 06:45 06/26/19 06/26/19 06/26/19 10:00 10:27 10:27 WBC RBC Hgb Hct MCV MCH MCHC RDW Plt Count Seg Neutrophils % Sodium 117.7 L* Potassium 3.7 Chloride 91 L Carbon Dioxide 14 L Anion Gap 13 BUN 29 H Creatinine 2.67 H Est GFR ( Amer) 30 L Glucose 271 H Lactic Acid 3.8 H Calcium 5.4 L* Phosphorus 3.9 Magnesium 2.3 Blood Type O POSITIVE 06/26/19 06/26/19 06/26/19 14:45 14:45 18:00 WBC RBC Hgb Hct MCV MCH MCHC RDW Plt Count Seg Neutrophils % Sodium 116.9 L* 116.0 L* Potassium 3.5 L 3.4 L Chloride 89 L 88 L Carbon Dioxide 14 L 15 L Anion Gap 14 13 BUN 30 H 29 H Creatinine 2.66 H 2.68 H Est GFR ( Amer) 30 L 30 L Glucose 257 H 246 H Lactic Acid 3.8 H Calcium 6.0 L* 5.7 L* Phosphorus 3.8 3.9 Magnesium 2.2 2.1 Blood Type 06/26/19 06/26/19 06/26/19 18:00 22:19 22:19 WBC RBC Hgb Hct MCV MCH MCHC RDW Plt Count Seg Neutrophils % Sodium 115.6 L* Potassium 3.4 L Chloride 87 L Carbon Dioxide 14 L Anion Gap 15 BUN 30 H Creatinine 2.66 H Est GFR ( Amer) 30 L Glucose 216 H Lactic Acid 3.6 H 3.8 H Calcium 5.7 L* Phosphorus 3.9 Magnesium 2.0 Blood Type 06/26/19 06/27/19 06/27/19 22:19 02:40 02:40 WBC 12.4 H RBC 2.97 L Hgb 9.1 L Hct 26.5 L MCV 89 MCH 30.5 MCHC 34.2 RDW 15.0 H Plt Count 24 L* Seg Neutrophils % Sodium 117.4 L* Potassium 3.5 L Chloride 89 L Carbon Dioxide 15 L Anion Gap 13 BUN 30 H Creatinine 2.75 H Est GFR ( Amer) 29 L Glucose 141 H Lactic Acid 3.3 H Calcium 5.7 L* Phosphorus 3.7 Magnesium 1.9 Blood Type 06/27/19 06/27/19 06/27/19 06:45 06:45 06:45 WBC 13.2 H RBC 2.91 L Hgb 8.9 L Hct 26.0 L MCV 89 MCH 30.4 MCHC 34.1 RDW 15.0 H Plt Count 19 L* Seg Neutrophils % Not Reportable Sodium 116.3 L* Potassium 3.4 L Chloride 87 L Carbon Dioxide 15 L Anion Gap 14 BUN 31 H Creatinine 2.78 H Est GFR ( Amer) 29 L Glucose 169 H Lactic Acid 3.2 H Calcium 5.3 L* Phosphorus 3.6 Magnesium 1.9 Blood Type 06/24/19 06/24/19 18:57 18:57 Creatine Kinase 456 H CK-MB (CK-2) 6.04 H Troponin I 0.264 Impressions: Cervical Spine CT 06/24/19 19:03 IMPRESSION: No CT evidence for acute C-spine osseous abnormality. Degenerative changes, as above. Straightening of the normal lordosis may reflect muscle spasm/strain. Partial visualization of endotracheal and enteric tubes. The proximal portion of the enteric tube may be partially coiled in the pharynx. Correlate with physical exam. TECHNICAL DOCUMENTATION: Quality ID # 436: Final reports with documentation of one or more dose reduction techniques (e.g., Automated exposure control, adjustment of the mA and/or kV according to patient size, use of iterative reconstruction technique) copyright 2011 [employer]- All Rights Reserved Head CT 06/24/19 19:03 IMPRESSION: 1. No acute intracranial findings. 2. Redundant loops of nasogastric tube extends into the oropharynx and hypopharynx; consider repositioning KUB X-Ray 06/25/19 01:26 IMPRESSION: Support lines and tubes are in place as described above. Chest X-Ray 06/25/19 09:56 IMPRESSION: 1. Endotracheal tube has been slightly advanced as described. 2. Left-sided [place] catheter has been placed. Catheter tip is wedge new left lower lobe pulmonary artery. 3. No other interval change in the chest. All labs, radiographs, diagnostic studies and EKGs were personally reviewed: Yes In addition, reports of radiographic and diagnostic studies were read: Yes Assessment and Plan - Diagnosis (1) Acute renal failure Qualifiers: Acute renal failure type: unspecified Qualified Code(s): N17.9 - Acute kidney failure, unspecified Is this a current diagnosis for this admission?: Yes Plan: Largely unchanged. No positive cultures. Vanco discontinued give renal status. (2) CVID (common variable immunodeficiency) Is this a current diagnosis for this admission?: Yes Plan: Chronic. Makes him more susceptible to infections. (3) Cardiac arrest Is this a current diagnosis for this admission?: Yes Plan: Cause of most of the above problems. PLT [id number] is this a DIC like picture? No signs of thrombosis or a clotting process. Transfuse as needed at a level of 10 or evidence of bleeding. (4) Cardiogenic shock Is this a current diagnosis for this admission?: Yes Plan: EF < 20% Still in need of prssors but gradually weaning them. (5) COPD (chronic obstructive pulmonary disease) with chronic bronchitis Is this a current diagnosis for this admission?: Yes Plan: Stable, no wheezing. Plan Summary: Critically ill. Neuro status a mcgrath prognostic indicator. In multiorgan failure with a qSOFA score of 4-5. Prognosis overall is aleida. Beginning to ease mother and girlfreind into this mindset. Critical Time Critical Time (minutes): 40 Level of Care: ICU Anticipated discharge: Other Within: Other - No anticipated discharge date or location. -: 1. The care of a critical patient is a dynamic process. This note is a rep resentative synopsis but static in nature. The timeframe for treatments given in order is not necessary the actual time these treatments may have been done. 2. This patient requires critical care secondary to ongoing requirements for therapy not offered or safe outside the critical care environment. Transfer to a lower level of care with altered life or limb morbidity and mortality. 3. Multidisciplinary rounds completed. 4. ABCDE bundle addressed.
[2019-06-27 08:52] LABS: IMMUNOGLOBULIN G 64 mg/dL (700-1600)
[2019-06-27] MEDS: NOREPINEPHRINE BITARTRATE IV PRN ×4 (09:04→18:11)
[2019-06-27] MEDS: THIAMINE HCL 500 MG in NORMAL SALINE 250 ML IV SCH (09:10)
[2019-06-27] MEDS: FAMOTIDINE INJ/PF 20 MG/2 ML SDV IV SCH ×2 (09:11→21:46)
[2019-06-27] MEDS: ASCORBIC ACID 500 MG TABLET PO SCH ×2 (09:11→18:27)
[2019-06-27] MEDS: ZINC SULFATE 220 MG CAPSULE PO SCH (09:11)
[2019-06-27] MEDS: MULTIVITAMIN ORAL LIQUID 60 ML PO SCH (09:12)
[2019-06-27] MEDS: LEVETIRACETAM 500 MG/NACL-ISO 500 MG/100 ML RTUPB IV SCH ×2 (09:13→21:50)
[2019-06-27] MEDS ORDERED: CALCIUM GLUCONATE 2,000 MG in DEXTROSE 5%-WATER 100 ML IV ONE (09:30)
[2019-06-27] MEDS: DEXTROSE 5%-WATER 250 ML with VASOPRESSIN 100 UNIT IV PRN ×2 (10:15)
[2019-06-27] MEDS ORDERED: WATER IV PRN ×2 (10:22)
[2019-06-27] MEDS ORDERED: DEXTROSE 5% IV PRN ×2 (10:22)
[2019-06-27] MEDS ORDERED: EPINEPHRINE IV PRN ×2 (10:22)
[2019-06-27] MEDS: SODIUM CHLORIDE 3% 500 ML IV PRN ×2 (10:34→23:51)
[2019-06-27 11:07] LABS: ANION GAP 13 (5-19); BLOOD UREA NITROGEN 30 mg/dL (7-20); CARBON DIOXIDE 16 mmol/L (22-30); CHLORIDE 85 mmol/L (98-107); GLUCOSE 175 mg/dL (75-110); PHOSPHORUS 3.8 mg/dL (2.5-4.5); POTASSIUM 3.4 mmol/L (3.6-5.0)
--- NOTE | 2019-06-27 11:14 | EKG REPORT ---
SEVERITY:- ABNORMAL ECG - SINUS TACHYCARDIA IVCD, CONSIDER ATYPICAL LBBB : Confirmed by: Mahduri Maromlejo MD 27-Jun-2019 11:13:18
[2019-06-27 11:21] LABS: CALCIUM 5.8 mg/dL (8.4-10.2)
[2019-06-27 14:58] LABS: ANION GAP 13 (5-19); BLOOD UREA NITROGEN 31 mg/dL (7-20); CARBON DIOXIDE 16 mmol/L (22-30); CHLORIDE 85 mmol/L (98-107); GLUCOSE 183 mg/dL (75-110); PHOSPHORUS 3.9 mg/dL (2.5-4.5); POTASSIUM 3.4 mmol/L (3.6-5.0)
[2019-06-27 15:12] LABS: CALCIUM 5.5 mg/dL (8.4-10.2)
[2019-06-27] MEDS ORDERED: DEXTROSE 5% IV ONE (17:30)
[2019-06-27] MEDS ORDERED: WATER IV ONE (17:30)
[2019-06-27] MEDS ORDERED: CALCIUM GLUCONATE IV ONE (17:30)
[2019-06-27] MEDS ORDERED: CIPROFLOXACIN 400 MG/D5W RTU 400 MG/200 ML RTUPB IV ONE (19:00)
[2019-06-27 19:11] LABS: ANION GAP 13 (5-19); BLOOD UREA NITROGEN 31 mg/dL (7-20); CARBON DIOXIDE 16 mmol/L (22-30); CHLORIDE 84 mmol/L (98-107); GLUCOSE 153 mg/dL (75-110); POTASSIUM 3.4 mmol/L (3.6-5.0)
[2019-06-27 19:28] LABS: CALCIUM 5.5 mg/dL (8.4-10.2)
[2019-06-27] MEDS: MICAFUNGIN SODIUM 100 MG in NORMAL SALINE 100 ML IV SCH (21:50)
--- NOTE | 2019-06-27 21:56 | PDOC PROGRESS REPORT ---
Subjective Progress Note for:: 06/27/19 Subjective:: Extensive conversation held with patient's girlfriend who has been at his bedside daily. She seems to understand his poor prognosis as well as the challenges faced with his medical course. She shared with me that Mr. Barraza has a son, Watson who is 28 years old and lives in [place]. Patient has never been , and has no other adult children. Watson is therefore his legal next of kin. Watson's phone number: [phone]. Reason For Visit: CARDIOGENIC SHOCK,HYPOTHERMIA,METABOLIC ACIDOSIS Physical Exam Vital Signs: Temp Pulse Resp BP Pulse Ox 98.2 F 140 H 22 H 88/68 L 98 06/27/19 18:32 06/27/19 19:00 06/27/19 18:32 06/27/19 18:32 06/27/19 20:26 Intake & Output 06/26/19 06/27/19 06/28/19 06:59 06:59 06:59 Intake Total 67719.4 8400.2 3367.2 Output Total 1055 1018 984 Balance 73728.4 7382.2 2383.2 Weight 60.2 kg 69.2 kg Results Laboratory Results: 06/27/19 06:45 06/27/19 18:45 06/26/19 06/26/19 06/26/19 22:19 22:19 22:19 WBC 12.4 H RBC 2.97 L Hgb 9.1 L Hct 26.5 L MCV 89 MCH 30.5 MCHC 34.2 RDW 15.0 H Plt Count 24 L* Seg Neutrophils % Sodium 115.6 L* Potassium 3.4 L Chloride 87 L Carbon Dioxide 14 L Anion Gap 15 BUN 30 H Creatinine 2.66 H Est GFR ( Amer) 30 L Glucose 216 H Lactic Acid 3.8 H Calcium 5.7 L* Ionized Calcium Judy Phosphorus 3.9 Magnesium 2.0 06/27/19 06/27/19 06/27/19 02:40 02:40 06:45 WBC RBC Hgb Hct MCV MCH MCHC RDW Plt Count Seg Neutrophils % Sodium 117.4 L* 116.3 L* Potassium 3.5 L 3.4 L Chloride 89 L 87 L Carbon Dioxide 15 L 15 L Anion Gap 13 14 BUN 30 H 31 H Creatinine 2.75 H 2.78 H Est GFR ( Amer) 29 L 29 L Glucose 141 H 169 H Lactic Acid 3.3 H Calcium 5.7 L* 5.3 L* Ionized Calcium Judy Phosphorus 3.7 3.6 Magnesium 1.9 1.9 06/27/19 06/27/19 06/27/19 06:45 06:45 10:20 WBC 13.2 H RBC 2.91 L Hgb 8.9 L Hct 26.0 L MCV 89 MCH 30.4 MCHC 34.1 RDW 15.0 H Plt Count 19 L* Seg Neutrophils % Not Reportable Sodium 113.5 L* Potassium 3.4 L Chloride 85 L Carbon Dioxide 16 L Anion Gap 13 BUN 30 H Creatinine 2.82 H Est GFR ( Amer) 28 L Glucose 175 H Lactic Acid 3.2 H Calcium 5.8 L* Ionized Calcium Judy Phosphorus 3.8 Magnesium 1.9 06/27/19 06/27/19 06/27/19 10:20 13:45 13:45 WBC RBC Hgb Hct MCV MCH MCHC RDW Plt Count Seg Neutrophils % Sodium 113.8 L* Potassium 3.4 L Chloride 85 L Carbon Dioxide 16 L Anion Gap 13 BUN 31 H Creatinine 2.90 H Est GFR ( Amer) 27 L Glucose 183 H Lactic Acid 3.1 H 3.2 H Calcium 5.5 L* Ionized Calcium Judy Phosphorus 3.9 Magnesium 1.9 06/27/19 06/27/19 06/27/19 14:25 18:45 18:45 WBC RBC Hgb Hct MCV MCH MCHC RDW Plt Count Seg Neutrophils % Sodium 113.0 L* Potassium 3.4 L Chloride 84 L Carbon Dioxide 16 L Anion Gap 13 BUN 31 H Creatinine 3.02 H Est GFR ( Amer) 26 L Glucose 153 H Lactic Acid 3.0 H Calcium 5.5 L* Ionized Calcium Judy 0.87 L Phosphorus 4.0 Magnesium 1.7 06/24/19 20:30 Stool - Stool - Final 06/24/19 06/24/19 18:57 18:57 Creatine Kinase 456 H CK-MB (CK-2) 6.04 H Troponin I 0.264 Impressions: Cervical Spine CT 06/24/19 19:03 IMPRESSION: No CT evidence for acute C-spine osseous abnormality. Degenerative changes, as above. Straightening of the normal lordosis may reflect muscle spasm/strain. Partial visualization of endotracheal and enteric tubes. The proximal portion of the enteric tube may be partially coiled in the pharynx. Correlate with physical exam. TECHNICAL DOCUMENTATION: Quality ID # 436: Final reports with documentation of one or more dose reduction techniques (e.g., Automated exposure control, adjustment of the mA and/or kV according to patient size, use of iterative reconstruction technique) copyright 2011 [employer]- All Rights Reserved Head CT 06/24/19 19:03 IMPRESSION: 1. No acute intracranial findings. 2. Redundant loops of nasogastric tube extends into the oropharynx and hypopharynx; consider repositioning KUB X-Ray 06/25/19 01:26 IMPRESSION: Support lines and tubes are in place as described above. Chest X-Ray 06/25/19 09:56 IMPRESSION: 1. Endotracheal tube has been slightly advanced as described. 2. Left-sided [place] catheter has been placed. Catheter tip is wedge new left lower lobe pulmonary artery. 3. No other interval change in the chest. Assessment & Plan - Time Time Spent with patient: 35 or more minutes Level of Care: ICU Medications reviewed and adjusted accordingly: Yes
[2019-06-27 22:52] LABS: ALBUMIN 1.4 g/dL (3.5-5.0); ANION GAP 13 (5-19); BLOOD UREA NITROGEN 31 mg/dL (7-20); CARBON DIOXIDE 17 mmol/L (22-30); CHLORIDE 81 mmol/L (98-107); GLUCOSE 184 mg/dL (75-110); POTASSIUM 3.3 mmol/L (3.6-5.0)
[2019-06-27 23:06] LABS: CALCIUM 5.7 mg/dL (8.4-10.2)
[2019-06-27] MEDS ORDERED: DEXTROSE 5%-WATER 250 ML with NOREPINEPHRINE BITARTRATE 8 MG IV PRN ×2 (23:43)
[2019-06-27] MEDS ORDERED: DEXTROSE 5%-WATER 250 ML with PHENYLEPHRINE HCL 80 MG IV PRN ×2 (23:57)
[2019-06-28] MEDS ORDERED: PHENYLEPHRINE HCL INJ/PF 10 MG/1 ML SDV ONE (00:26)
[2019-06-28] MEDS ORDERED: NOREPINEPHRINE BITARTRATE INJ/PF 4 MG/4 ML SDV IV ONE (00:27)
[2019-06-28] MEDS: CEFEPIME 1 GM/D5W RTU 1 GM/50 ML RTUPB IV SCH (00:33)
[2019-06-28] MEDS ORDERED: CIPROFLOXACIN 400 MG/D5W RTU 400 MG/200 ML RTUPB IV SCH (06:00)
[2019-06-28] MEDS ORDERED: EPINEPHRINE INJ/PF 1 MG/1 ML AMPULE ONE (06:05)
[2019-06-28 06:12] LABS: HEMATOCRIT 28.7 % (37.9-51.0); HEMOGLOBIN 9.7 g/dL (13.5-17.0); MEAN CORPUSCULAR HGB CONC 33.8 g/dL (32.0-36.0); MEAN CORPUSCULAR VOLUME 89 fl (80-97); RED BLOOD COUNT 3.23 10^6/uL (4.35-5.55); RED CELL DISTRIBUTION WIDTH 15.1 % (11.5-14.0); WHITE BLOOD COUNT 13.5 10^3/uL (4.0-10.5)
[2019-06-28] MEDS: DEXTROSE 5%-WATER 250 ML with EPINEPHRINE/PF 2 MG IV PRN ×4 (06:30→11:22)
[2019-06-28 06:37] LABS: ABSOLUTE LYMPHOCYTES# (MANUAL) 0.4 10^3/uL (0.5-4.7); ABSOLUTE MONOCYTES # (MANUAL) 0.4 10^3/uL (0.1-1.4); BASOPHILS % (MANUAL) 0 % (0-2); EOSINOPHILS % (MANUAL) 0 % (0-6); LYMPHOCYTES % (MANUAL) 3 % (13-45); MONOCYTES % (MANUAL) 3 % (3-13); SEGMENTED NEUTROPHILS % (MAN) 94 % (42-78); TOTAL CELLS COUNTED 100
[2019-06-28 06:39] LABS: ANISOCYTOSIS 1+; BURR CELLS 1+; PLATELET COMMENT DECREASED; POIKILOCYTOSIS 1+; TOXIC GRANULATION 1+; TOXIC VACUOLATION PRESENT
[2019-06-28 06:48] LABS: PLATELET COUNT 8 10^3/uL (150-450)
[2019-06-28] MEDS: FOLIC ACID 1 MG in NORMAL SALINE 50 ML IV SCH (06:55)
[2019-06-28] MEDS: HYDROCORTISONE SOD SUCCINATE INJ/PF 100 MG/2 ML SDV IV SCH ×2 (06:55→13:38)
[2019-06-28] MEDS: ALBUMIN HUMAN 12.5 GM/50 ML RTUINJ IV SCH ×4 (06:59→11:06)
[2019-06-28 07:23] LABS: ALBUMIN 1.4 g/dL (3.5-5.0); ALKALINE PHOSPHATASE 68 U/L (38-126); ANION GAP 15 (5-19); ASPARTATE AMINO TRANSFERASE 301 U/L (17-59); BILIRUBIN,DIRECT 1.4 mg/dL (0.0-0.4); BLOOD UREA NITROGEN 32 mg/dL (7-20); CARBON DIOXIDE 15 mmol/L (22-30); CHLORIDE 87 mmol/L (98-107); GLUCOSE 90 mg/dL (75-110); POTASSIUM 3.4 mmol/L (3.6-5.0); TOTAL PROTEIN 2.8 g/dL (6.3-8.2)
[2019-06-28 07:42] LABS: CALCIUM 5.9 mg/dL (8.4-10.2)
[2019-06-28] MEDS ORDERED: DEXTROSE 5%-WATER 250 ML with NOREPINEPHRINE BITARTRATE 8 MG IV PRN ×2 (07:57)
[2019-06-28] MEDS ORDERED: DEXTROSE 5%-WATER 250 ML with PHENYLEPHRINE HCL 80 MG IV PRN ×2 (08:01)
[2019-06-28] MEDS ORDERED: ALBUMIN HUMAN 12.5 GM/50 ML RTUINJ IV SCH (08:25)
[2019-06-28 09:50] LABS: URINE CREATININE 5.6 mg/dL (22-328); URINE PROTEIN 46.6 mg/dL (<12)
[2019-06-28] MEDS ORDERED: NORMAL SALINE IV SCH (10:00)
[2019-06-28] MEDS ORDERED: FOLIC ACID IV SCH (10:00)
[2019-06-28] MEDS ORDERED: THIAMINE HCL IV SCH (10:00)
[2019-06-28] MEDS ORDERED: CEFTRIAXONE 2 GM/D5W RTU 2 GM/50 ML RTUPB IV SCH (10:00)
[2019-06-28] MEDS ORDERED: CEFTRIAXONE SODIUM 2,000 MG in DEXTROSE 5%-WATER 100 ML IV SCH (10:00)
--- NOTE | 2019-06-28 10:45 | RADIOLOGY REPORT (SQ) ---
EXAM DESCRIPTION: CHEST SINGLE VIEW COMPLETED DATE/TIME: 06/28/2019 9:53 am REASON FOR STUDY: aspiration COMPARISON: CT chest 05/10/2019 Chest films 06/24/2019, 06/25/2019 EXAM PARAMETERS: NUMBER OF VIEWS: One view. TECHNIQUE: Single frontal radiographic view of the chest acquired. RADIATION DOSE: NA LIMITATIONS: None. FINDINGS: LUNGS AND PLEURA: There is now hazy opacity throughout the right and left hemithorax from bilateral pleural effusions. Persistent alveolar and interstitial edema is present. No pneumothorax. Left retrocardiac consolidation is present likely atelectasis. MEDIASTINUM AND HILAR STRUCTURES: No masses. Contour normal. HEART AND VASCULAR STRUCTURES: No cardiomegaly BONES: No acute findings. HARDWARE: Endotracheal tube tip 2 cm above the latoya. Nasogastric tube tip in the distal esophagus. Right jugular triple lumen catheter tip superior vena cava. Left subclavian [place] catheter tip in the right pulmonary artery. Small caliber IV over the anterior right upper chest. OTHER: No other significant finding. IMPRESSION: Tubes and lines in good positioning. Bilateral pleural effusions with alveolar and interstitial edema TECHNICAL DOCUMENTATION: JOB ID: [id number] [employer]- All Rights Reserved Reading location - IP/workstation name: [email or web address]
[2019-06-28] MEDS ORDERED: AZITHROMYCIN 500 MG in DEXTROSE 5%-WATER 250 ML IV SCH (11:00)
[2019-06-28] MEDS: FAMOTIDINE INJ/PF 20 MG/2 ML SDV IV SCH (11:08)
[2019-06-28] MEDS: LEVETIRACETAM 500 MG/NACL-ISO 500 MG/100 ML RTUPB IV SCH (11:10)
[2019-06-28] MEDS: ZINC SULFATE 220 MG CAPSULE PO SCH (11:18)
[2019-06-28] MEDS: ASCORBIC ACID 500 MG TABLET PO SCH (11:18)
[2019-06-28] MEDS: MULTIVITAMIN ORAL LIQUID 60 ML PO SCH (11:18)
[2019-06-28 11:23] LABS: HEMOGLOBIN 8.1 g/dL (13.5-17.0); MEAN CORPUSCULAR HEMOGLOBIN 29.9 pg (27.0-33.4); MEAN CORPUSCULAR HGB CONC 33.6 g/dL (32.0-36.0); MEAN CORPUSCULAR VOLUME 89 fl (80-97); RED CELL DISTRIBUTION WIDTH 14.9 % (11.5-14.0); WHITE BLOOD COUNT 12.2 10^3/uL (4.0-10.5)
[2019-06-28 11:27] LABS: FIBRINOGEN 229 mg/dL (209-497); INTERNATIONAL RATION (INR) 1.37
[2019-06-28 11:28] LABS: PARTIAL THROMBOPLASTIN TIME 45.1 SEC (23.5-35.8)
[2019-06-28 11:30] LABS: D-DIMER 3.34 ug/mL (0.00-0.50)
[2019-06-28] MEDS ORDERED: NORMAL SALINE 250 ML IV PRN ×3 (11:31→11:39)
[2019-06-28 11:34] LABS: PLATELET COUNT 8 10^3/uL (150-450)
[2019-06-28] MEDS ORDERED: SODIUM CHLORIDE 3% 500 ML IV ONE (11:50)
[2019-06-28 11:54] LABS: ABSOLUTE LYMPHOCYTES# (MANUAL) 0.2 10^3/uL (0.5-4.7); ABSOLUTE MONOCYTES # (MANUAL) 1.1 10^3/uL (0.1-1.4); BASOPHILS % (MANUAL) 0 % (0-2); EOSINOPHILS % (MANUAL) 0 % (0-6); LYMPHOCYTES % (MANUAL) 2 % (13-45); METAMYELOCYTES % (MANUAL) 3 % (0-1); MONOCYTES % (MANUAL) 9 % (3-13); NUCLEATED RED BLOOD CELLS 1 /100 WBC (0); SEGMENTED NEUTROPHILS % (MAN) 86 % (42-78); TOTAL CELLS COUNTED 100
[2019-06-28 11:55] LABS: ANISOCYTOSIS SLIGHT; PLATELET COMMENT DECREASED; TOXIC GRANULATION 2+; TOXIC VACUOLATION PRESENT
[2019-06-28] MEDS ORDERED: DEXMEDETOMIDINE IN 0.9 % NACL 400 MCG/100 ML RTUPB IV PRN (12:16)
[2019-06-28] MEDS ORDERED: WATER IV SCH (12:30)
[2019-06-28] MEDS ORDERED: DEXTROSE 5% IV SCH (12:30)
[2019-06-28] MEDS ORDERED: CEFEPIME HCL IV SCH (12:30)
--- NOTE | 2019-06-28 12:49 | PDOC CRITICAL CARE PROG REPORT ---
General Date:: 06/28/19 ICU Day:: 4 Ventilator Day:: 4 Hospital Day:: 4 Events in the past 12 to 24 Hours:: The patient has had decline in the last 8 to 12 hours. His hypotension has recrudesced and we have had to increase his vasopressor therapy. Milrinone has been discontinued. The last hemodynamics, with an assumed wedge pressure of 7, heart rate of 125: CI: 2.1; SVRI: 2442; Bp 84/60, mean: 71;PAP: 26/16, Mean:20. He is now off the dexmedetomidine and responds to voice. He has profound thrombocytopenia. He was found to have Salmonella and Campylobacter in his stool. . Review of systems relevant to events:: Has mild bleeding from oral mucosa. No active bleeding. H/H not dramatically changed. Sodium has been difficult to improved. Acidosis persists His right arterial axillary catheter has become dysfunctional. Prior to this the peripheral noninvasive blood pressure and the invasive blood pressure a ppeared to be in parallel and equal. Attempts at improving the axillary line function were not low to improve the situation Reason for ICU Addmission:: Post cardiac arrest - Medications: Medications reviewed and adjusted accordingly: Yes Vasopressors:: Levophed at 15 mcg; vasopressin 0.03, neosynephrine 140 mcg; epi: 2 mcg Sedation:: None. Dex discontinued Physical Exam Vital Signs: Temp Pulse Resp BP Pulse Ox 98.4 F 140 H 26 H 123/93 H 98 06/28/19 08:12 06/27/19 19:00 06/28/19 08:12 06/28/19 07:53 06/28/19 08:12 Intake & Output 06/27/19 06/28/19 06/29/19 06:59 06:59 06:59 Intake Total 8400.2 5523.4 100.2 Output Total 1018 2046 Balance 7382.2 3477.4 100.2 Weight 69.2 kg Weight/Height Weight 69.2 kg Height 6 ft 1 in General appearance: PRESENT: no acute distress, thin Exam: Intubated toxic young appearing 54-year-old male no active distress Head exam: PRESENT: atraumatic, normocephalic, other - Purpuric eccymosis top frontal extends above glabella Head Image: 1 - Purpuric eccymosis Eye exam: PRESENT: conjunctival injection, conjunctiva pink, PERRLA, scleral icterus, other - chemosis present Ear exam: ABSENT: bleeding Teeth exam: PRESENT: poor dentation Neck exam: ABSENT: carotid bruit, JVD, lymphadenopathy, tenderness, thyromegaly, tracheal deviation Respiratory exam: PRESENT: crackles, unlabored. ABSENT: accessory muscle use Cardiovascular exam: PRESENT: +S1, +S2, tachycardia. ABSENT: irregular rhythm, rubs, systolic murmur GI/Abdominal exam: PRESENT: diminished bowel sounds, firm, hypoactive bowel sounds. ABSENT: ascites, distended, guarding, mass, Knox's sign, normal bowel sounds, organolmegaly, rebound, rigid, tenderness Rectal exam: PRESENT: deferred Gentrourinary exam: PRESENT: indwelling catheter - Urine blue (from methylene blue) Extremities exam: ABSENT: joint swelling, pedal edema Musculoskeletal exam: PRESENT: other - Severe muscle atrophy. ABSENT: deformity, dislocation Neurological exam: PRESENT: altered, other - GCS: 3-1t-1. Skin exam: PRESENT: intact, mottled, other - purpuric changes anterior lower extremities extends to knees. No skin sloughing. ABSENT: abrasion, cyanosis, er ythema, petechiae, urticaria, vesicles, warm Tubes/Lines: PRESENT: Endotracheal Tube, Central Line, Arterial Catheter, Nasogastic Tube, Other - PA catheter. All day 5. Laboratory/Radiographs Laboratory Results: 06/28/19 05:30 06/28/19 05:30 06/27/19 06/27/19 06/27/19 10:20 10:20 13:45 WBC RBC Hgb Hct MCV MCH MCHC RDW Plt Count Seg Neutrophils % Sodium 113.5 L* 113.8 L* Potassium 3.4 L 3.4 L Chloride 85 L 85 L Carbon Dioxide 16 L 16 L Anion Gap 13 13 BUN 30 H 31 H Creatinine 2.82 H 2.90 H Est GFR ( Amer) 28 L 27 L Glucose 175 H 183 H Lactic Acid 3.1 H Calcium 5.8 L* 5.5 L* Ionized Calcium Judy Phosphorus 3.8 3.9 Magnesium 1.9 1.9 Total Bilirubin AST Alkaline Phosphatase Total Protein Albumin 06/27/19 06/27/19 06/27/19 13:45 14:25 18:45 WBC RBC Hgb Hct MCV MCH MCHC RDW Plt Count Seg Neutrophils % Sodium 113.0 L* Potassium 3.4 L Chloride 84 L Carbon Dioxide 16 L Anion Gap 13 BUN 31 H Creatinine 3.02 H Est GFR ( Amer) 26 L Glucose 153 H Lactic Acid 3.2 H Calcium 5.5 L* Ionized Calcium Judy 0.87 L Phosphorus 4.0 Magnesium 1.7 Total Bilirubin AST Alkaline Phosphatase Total Protein Albumin 06/27/19 06/27/19 06/27/19 18:45 22:00 22:00 WBC RBC Hgb Hct MCV MCH MCHC RDW Plt Count Seg Neutrophils % Sodium 110.9 L* Potassium 3.3 L Chloride 81 L Carbon Dioxide 17 L Anion Gap 13 BUN 31 H Creatinine 2.97 H Est GFR ( Amer) 27 L Glucose 184 H Lactic Acid 3.0 H 3.1 H Calcium 5.7 L* Ionized Calcium Judy Phosphorus 4.0 Magnesium 1.7 Total Bilirubin AST Alkaline Phosphatase Total Protein Albumin 1.4 L 06/28/19 06/28/19 05:30 05:30 WBC 13.5 H RBC 3.23 L Hgb 9.7 L Hct 28.7 L MCV 89 MCH 30.0 MCHC 33.8 RDW 15.1 H Plt Count 8 L* Seg Neutrophils % Not Reportable Sodium 116.8 L* Potassium 3.4 L Chloride 87 L Carbon Dioxide 15 L Anion Gap 15 BUN 32 H Creatinine 2.98 H Est GFR ( Amer) 27 L Glucose 90 Lactic Acid Calcium 5.9 L* Ionized Calcium Judy Phosphorus Magnesium 1.7 Total Bilirubin 2.0 H AST 301 H Alkaline Phosphatase 68 Total Protein 2.8 L Albumin 1.4 L 06/24/19 20:30 Stool - Stool - Final 06/24/19 06/24/19 18:57 18:57 Creatine Kinase 456 H CK-MB (CK-2) 6.04 H Troponin I 0.264 Impressions: Cervical Spine CT 06/24/19 19:03 IMPRESSION: No CT evidence for acute C-spine osseous abnormality. Degenerative changes, as above. Straightening of the normal lordosis may reflect muscle spasm/strain. Partial visualization of endotracheal and enteric tubes. The proximal portion of the enteric tube may be partially coiled in the pharynx. Correlate with physical exam. TECHNICAL DOCUMENTATION: Quality ID # [id number]: Final reports with documentation of one or more dose reduction techniques (e.g., Automated exposure control, adjustment of the mA and/or kV according to patient size, use of iterative reconstruction technique) copyright 2011 [employer]- All Rights Reserved Head CT 06/24/19 19:03 IMPRESSION: 1. No acute intracranial findings. 2. Redundant loops of nasogastric tube extends into the oropharynx and hypopharynx; consider repositioning KUB X-Ray 06/25/19 01:26 IMPRESSION: Support lines and tubes are in place as described above. Chest X-Ray 06/25/19 09:56 IMPRESSION: 1. Endotracheal tube has been slightly advanced as described. 2. Left-sided [place] catheter has been placed. Catheter tip is wedge new left lower lobe pulmonary artery. 3. No other interval change in the chest. All labs, radiographs, diagnostic studies and EKGs were personally reviewed: Yes In addition, reports of radiographic and diagnostic studies were read: Yes Assessment and Plan - Diagnosis (1) Cardiogenic shock Is this a current diagnosis for this admission?: Yes (2) Cardiac arrest Is this a current diagnosis for this admission?: Yes (3) Respiratory arrest Is this a current diagnosis for this admission?: Yes (4) Lactic acidosis Is this a current diagnosis for this admission?: Yes (5) Metabolic acidosis Is this a current diagnosis for this admission?: Yes (6) Severe protein-calorie malnutrition (Garcia: less than 60% of standard weight) Is this a current diagnosis for this admission?: Yes (7) Acute renal failure Qualifiers: Acute renal failure type: unspecified Qualified Code(s): N17.9 - Acute kidney failure, unspecified Is this a current diagnosis for this admission?: Yes (8) CVID (common variable immunodeficiency) Is this a current diagnosis for this admission?: Yes (9) Hypokalemia Is this a current diagnosis for this admission?: Yes (10) Hyponatremia Is this a current diagnosis for this admission?: Yes (11) Hypoalbuminemia due to protein-calorie malnutrition Is this a current diagnosis for this admission?: Yes (12) Salmonella enteritis Is this a current diagnosis for this admission?: Yes (13) Campylobacter antigen positive Is this a current diagnosis for this admission?: Yes (14) Coma Qualifiers: Coma depth: [place] coma 3-8 Coma timing: in the field (EMT or ambulance) Qualified Code(s): R40.2431 - [place] coma scale score 3-8, in the field [EMT or ambulance] Is this a current diagnosis for this admission?: Yes (15) Thrombocytopenia Is this a current diagnosis for this admission?: Yes (16) SIADH (syndrome of inappropriate ADH production) Is this a current diagnosis for this admission?: Yes Plan Summary: Obviously patient is extremely ill. He is still vasopressor dependent. Respiratory: From a respiratory standpoint he has had an increase in the need for FiO2. X-ray shows only mild mixed interstitial alveolar pattern on the right. There are bilateral pleural effusions. PA catheter lines and tubes all appear appropriate. He has some dark sputum reflective of possible aspiration at time of event. He has been on antibiotics. PEEP has not been increased secondary to the blood pressure but is an option now that his blood pressure is slightly improved.There have been no issues with peak pressure changes on the ventilator. Current peak airway pressure is 30 cmH2). Infectious disease: Patient was given a 20 g dose of IVIG. I did have a discussion with the [facility] at [place] regarding his immune process. They were in agreement with the dosing and suggested that repeat dosing in 3 weeks may be needed if the patient survives. 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 Given the insidious decline in his health, protein calorie malnutrition, we are concerned that he has developed a malignancy associated with this disease process. In addition he has Campylobacter and Salmonella detected in his stool. He had had the Campylobacter before and most likely represents colonization. However Salmonella is new and given his immune status is hypotension we had broaden out his antibiotics to include azithromycin which should cover this. He had been on Cipro but I have discontinued this because of the patient's seizure on admission. We will obtain sputum specimen to assure that no aspiration pneumonia is beginning. I unfortunately do not have the ability to order procalcitonin to follow. Cardiac: The patient still remains hypotensive and in shock. His EF on the echo was notably 12 to 18% officially listed at 20%. Ironically his intravascular pressures on pulmonary artery catheter were extremely low despite an elevated and dilated IVC. He is now weaned off milrinone and vasopressor therapy is b eing weaned. It is difficult to ascertain whether this is a combined cardiogenic and septic shock picture however we are treating for both. Hematologic: Patient has developed worsening thrombocytopenia. A work-up for platelet clumping is ongoing given the dysfunction of his arterial catheter. In light of this a DIC panel and platelet clumping disorder panel are now ordered. I am reluctant to give platelets however given the low amount in the early purpuric changes I am concerned that an intracerebral process may occur. I have ordered leuko-reduced irradiated platelets and concern that this patient has an immune deficiency process and may have a con commitment malignancy. DIC panel is pending as well as fibrinogen. Patient has known combined variable immune deficiency syndrome, as expected, low Ig G1. Given his immune deficiency p rocess the possibility of TTP or HIT are considerations. The decline in his platelets and the purpuric changes with turn for sepsis is an indication for giving platelets. Will transfuse 2 units. Endocrine: Patient has been started on leuko-and mineralocorticoid therapy. Unfortunately it appears that the cortisol level was drawn after the Solu-Cortef was given. Given his vasopressor needs and severe illness we will continue him on steroid therapy. Hyperglycemia has not been an issue but will continue to monitor for this. Renal: Patient has acute kidney injury. Will most likely need CRRT. We do not provide this here currently at [facility]. Has blue in urine indicative of methylene blue given. Has SIADH. Will most likely require CRRT especially in light of his refractory hyponatremia. Currently, controlling his acidosis with bicarbonate drip. I would like to consider a DDAVP clamp however would need the input of nephrology. Metabolic: Patient has a significant acidosis and low albumin state. In addition as noted above he has SIADH with hyponatremia renal failure. Treating supportively as noted above GI/Alimentary: Patient has slight elevation in SGOT but not matched by alkaline phosphatase elevation or evidence of transaminitis. Will check ammonia level. Patient has profound hypoalbuminemic state most likely related to his persistent diarrhea and immune deficiency disorder. There is concern for an underlying malignancy contributing to this. Given the amount of pressor requirement, pre- existing protein calorie malnutrition which is quite severe he does meet indication for TPN. The plan is for potential transfer however if this does not occur will be prudent to write for nutritional support. Neurologic: Patient has had no further seizures. We have maintained him on Keppra. Have discontinued the Cipro because of the neuro associated side effects. He is more responsive today with an improvement in his [place] Coma Scale. I have started him on Precedex secondary to increase in respiratory rate and agitation. His initial CT scan of the brain was negative. Concern for intracerebral hemorrhage will need to be maintained with vigilance because of the low platelets. He also requires continuous EEG however we do not have that available here. The patient has improved significantly but is on vasopressors to support his blood pressure. His refractory SIADH, thrombocytopenia, and immune deficiency d isorder, I feel he would be better served in a coronary care center which could provide for all of the significant systems dysfunction. That end I have placed calls to the [facility] and to [facility] both of which were willing to accept the patient but felt that he may be too unstable for a long flight. [facility] which is in [place], which provides a shorter interval, has gladly accepted the patient for care. I have discussed the patient's improvement but still very ill and critical position. They are willing to accept the transfer risk. I spoke specifically to the son Watson who is aware. They have requested transfer on Friday and patient was too unstable for that to occur. Patient's arterial catheter in the right axilla has also become dysfunctional. An attempt to improve his functionality was not successful. Given his low platelet count it would be risky to remove at this time. Despite being on multiple vasopressors, of which are dramatically less than previous and weaning, I am still confident that this is the optimal window of opportunity to transfer this patient for the care that will be required. Critical Time Critical Time (minutes): 180 Level of Care: ICU Anticipated discharge: [facility] Within: Other - today. Transfer to [facility] -: 1. The care of a critical patient is a dynamic process. This note is a customer retention representative synopsis but static in nature. The timeframe for treatments given in order is not necessary the actual time these treatments may have been done. 2. This patient requires critical care secondary to ongoing requirements for therapy not offered or safe outside the critical care environment. Transfer to a lower level of care with altered life or limb morbidity and mortality. 3. Multidisciplinary rounds completed. 4. ABCDE bundle addressed.
--- NOTE | 2019-06-28 12:59 | PDOC TRANSFER SUMMARY ---
General Admission Date/PCP: 06/25/19 00:46 DC CLINIC Admission Date: 06/25/19 Transfer Date: 06/28/19 Accepting Facility: [facility] Accepting Physician: Obraul Resuscitation Status: Do Not Resuscitate - Transfer Diagnosis (1) Cardiogenic shock Is this a current diagnosis for this admission?: Yes (2) Cardiac arrest Is this a current diagnosis for this admission?: Yes (3) Respiratory arrest Is this a current diagnosis for this admission?: Yes (4) Lactic acidosis Is this a current diagnosis for this admission?: Yes (5) Metabolic acidosis Is this a current diagnosis for this admission?: Yes (6) Severe protein-calorie malnutrition (Garcia: less than 60% of standard weight) Is this a current diagnosis for this admission?: Yes (7) Acute renal failure Is this a current diagnosis for this admission?: Yes (8) CVID (common variable immunodeficiency) Is this a current diagnosis for this admission?: Yes (9) Hypokalemia Is this a current diagnosis for this admission?: Yes (10) Hyponatremia Is this a current diagnosis for this admission?: Yes (11) Hypoalbuminemia due to protein-calorie malnutrition Is this a current diagnosis for this admission?: Yes (12) Salmonella enteritis Is this a current diagnosis for this admission?: Yes (13) Campylobacter antigen positive Is this a current diagnosis for this admission?: Yes (14) Coma Is this a current diagnosis for this admission?: Yes (15) Thrombocytopenia Is this a current diagnosis for this admission?: Yes (16) SIADH (syndrome of inappropriate ADH production) Is this a current diagnosis for this admission?: Yes - Transfer Medications Home Medications: Albuterol Sulfate [Proair Hfa Inhalation Aerosol 8.5 gm Mdi] 2 puff IH Q4HP PRN 06/25/19 Budesonide [Entocort EC] 9 mg PO QAM 06/25/19 Cetirizine HCl [Zyrtec 10 mg Tablet] 10 mg PO DAILY 06/25/19 Cholecalciferol (Vitamin D3) [Vitamin D3 1000 Unit Tablet] 4,000 unit PO DAILY 06/25/19 Pantoprazole Sodium [Protonix [address] Tablet] 40 mg PO BID 06/25/19 Potassium Chloride [Potassium Chloride 20 Meq Packet] 40 meq PO DAILY 06/25/19 Tiotropium [place] [Spiriva Respimat] 1 puff IH DAILY 06/25/19 Transfer Medications: Current Medications Ascorbic Acid (Vitamin C 500 Mg Tablet) 1,000 mg PO BID KAITLIN Stop: 07/25/19 18:59 Last Admin: 06/28/19 11:18 Dose: 1,000 mg Documented by: Dextrose (Dextrose Inj 50% Syringe (25 Gm/50 Ml)) 12.5 gm IV PRN PRN; Protocol PRN Reason: FOR BG 50-69 IN ALERT PATIENT Stop: 07/25/19 01:14 Dextrose (Dextrose Inj 50% Syringe (25 Gm/50 Ml)) 25 gm IV PRN PRN; Protocol PRN Reason: See Label Comments Stop: 07/25/19 01:14 Famotidine (Pepcid Inj/Pf 20 Mg/2 Ml Sdv) 10 mg IV Q12 KAITLIN Stop: 07/25/19 09:59 Last Admin: 06/28/19 11:08 Dose: 10 mg Documented by: Glucagon (Glucagen Inj 1 Mg Vial) 1 mg SUBCUT PRN PRN; Protocol PRN Reason: Evaluate for BG < 70 Stop: 07/25/19 01:14 Glucose (Glutose 40% Gel 15 Gm Tube) 15 gm PO PRN PRN; Protocol PRN Reason: For BG 50-69 in Alert Patient Stop: 07/25/19 01:14 Glucose (Glutose 40% Gel 15 Gm Tube) 30 gm PO PRN PRN; Protocol PRN Reason: FOR BG < 50 IN ALERT PATIENT Stop: 07/25/19 01:14 Hydrocortisone Sodium Succinate (Solu-Cortef Inj/Pf 100 Mg/ 2 Ml Sdv) 100 mg IV Q8 [facility] Stop: 07/25/19 13:59 Last Admin: 06/28/19 06:55 Dose: 100 mg Documented by: Sodium Bicarbonate 150 meq/ (Dextrose) 1,000 mls @ 75 mls/hr IV CONTINUOUS PRN PRN Reason: THIS MED IS NOT "PRN" Stop: 07/25/19 19:25 Last Infusion: 06/28/19 12:02 Dose: 50 mls/hr, 50 mls/hr Documented by: Levetiracetam (Keppra Rtu 500 Mg/Nacl-Iso 100 Ml Premix) 500 mg in 100 mls @ 400 mls/hr IV Q12 KAITLIN Stop: 07/26/19 07:59 Last Infusion: 06/28/19 11:25 Dose: Infused Documented by: Vasopressin 100 unit/ Dextrose 250 mls @ 0 mls/hr IV CONTINUOUS PRN; Protocol PRN Reason: THIS MED IS NOT "PRN" Stop: 07/25/19 19:52 Last Titration: 06/28/19 07:16 Dose: 0.03 unit/min, 4.5 mls/hr Documented by: Insulin Human Regular 100 unit (/ Sodium Chloride) 100 mls @ mls/hr IV .CONTINUOUS PRN; Protocol PRN Reason: THIS MED IS NOT "PRN" Stop: 07/25/19 22:29 Last Titration: 06/27/19 03:20 Dose: 0 ml/hr, 0 mls/hr Documented by: Milrinone Lactate/Dextrose (Primacor Rtu 20 Mg-D5w 100 Ml Premix Bag) 20 mg in 100 mls @ 0 mls/hr IV CONTINUOUS PRN; Protocol PRN Reason: THIS MED IS NOT "PRN" Stop: 07/25/19 08:03 Epinephrine HCl 2 mg/ Dextrose 252 mls @ 0 mls/hr IV CONTINUOUS PRN; Protocol PRN Reason: THIS MED IS NOT "PRN" Stop: 07/27/19 10:21 Last Admin: 06/28/19 11:22 Dose: 2 mcg/min, 15.12 mls/hr Documented by: Norepinephrine Bitartrate 8 mg (/ Dextrose) 258 mls @ 0 mls/hr IV CONTINUOUS PRN; Protocol PRN Reason: THIS MED IS NOT "PRN" Stop: 07/28/19 07:56 Hard Fat/Phenylephrine 80 mg/ (Dextrose) 258 mls @ 0 mls/hr IV CONTINUOUS PRN; Protocol PRN Reason: THIS MED IS NOT "PRN" Stop: 07/28/19 08:00 Last Admin: 06/28/19 11:20 Dose: 140 mcg/min, 27.09 mls/hr Documented by: Thiamine HCl 500 mg/ Folic (Acid 2.5 mg/ Sodium Chloride) 255.5 mls @ 509.02 mls/hr IV Q12 KAITLIN Stop: 07/28/19 09:59 Last Infusion: 06/28/19 10:23 Dose: Infused Documented by: Azithromycin 500 mg/ Dextrose 250 mls @ 250 mls/hr IV DAILY KAITLIN Stop: 07/05/19 10:59 Last Admin: 06/28/19 11:43 Dose: 250 mls/hr, 250 mls/hr Documented by: Sodium Chloride (Sodium Chloride 3% (Hypertonic) 500 Ml Iv Bag) 500 mls @ 50 mls/hr IV NOW ONE Stop: 06/28/19 21:49 Last Admin: 06/28/19 11:45 Dose: 50 mls/hr Documented by: Micafungin Sodium 100 mg/ (Sodium Chloride) 100 mls @ 100 mls/hr IV QHS KAITLIN Stop: 07/05/19 21:59 Cefepime HCl (Maxipime Rtu 1 Gm/D5w 50 Ml Premix Bag) 1 gm in 50 mls @ 100 mls/hr IV Q12 KAITLIN Stop: 07/05/19 12:59 Last Admin: 06/28/19 12:41 Dose: 100 mls/hr, 100 mls/hr Documented by: Dexmedetomidine/Sodium Chloride (Precedex 400 Mcg/Ns 100 Ml Iv Premix) 400 mcg in 100 mls @ 0 mls/hr IV CONTINUOUS PRN; Protocol PRN Reason: THIS MED IS NOT "PRN" Stop: 07/28/19 12:15 Last Admin: 06/28/19 12:27 Dose: 7.7 mls/hr, 7.7 mls/hr Documented by: Multivitamins (Multiple Vitamin Liquid 60 Ml) 5 ml PO DAILY KAITLIN Stop: 07/26/19 09:59 Last Admin: 06/28/19 11:18 Dose: 5 ml Documented by: Pharmacy Profile Note (Medication Communication Order) 1 each .NOTICE NR Stop: 07/25/19 01:29 Sodium Chloride (Saline Flush 2.5 Ml Monoject Prefil Syrin) 2.5 ml IV Q8 KAITLIN Stop: 07/25/19 05:59 Last Admin: 06/28/19 06:26 Dose: Not Given Documented by: Sodium Chloride (Nacl 0.9% Inj/Pf 10 Ml Sdv) 10 ml IV .AFTER EACH USE PRN PRN Reason: AFTER EACH INTERMITTENT USE Stop: 07/25/19 18:31 Sodium Chloride (Saline Flush 2.5 Ml Monoject Prefil Syrin) 2.5 ml IV Q8 KAITLIN Stop: 07/28/19 13:59 Zinc Sulfate (Zinc-220 Capsule) 220 mg PO DAILY KAITLIN Stop: 07/25/19 11:59 Last Admin: 06/28/19 11:18 Dose: 220 mg Documented by: - Allergies Allergies/Adverse Reactions: Sulfa (Sulfonamide Antibiotics) Allergy (Verified 04/27/19 09:54) Generalized rash Hospital Course Hospital Course: Patient admitted to the hospital late , June 25, 2019 after a cardiopulmonary arrest. He was in profound shock with an echo showing a reduced ejection fraction. Started on milrinone epinephrine Connor-Synephrine vasopressin. He was given IVIG because of his known history of combined variable immune deficiency syndrome. Calls to transfer the patient because of his unique and significant illness were made however he was too unstable for transfer. On Friday, he had notable seizures and was started on Keppra after being given Ativan. He may have had an aspiration event but his chest x-ray was unremarkable at time of presentation. Remarkably, patient survived the initial admission illness and has remained in the ICU albeit on vasopressor support. He presented with a weight of 49 kg and a height of 6 foot 1. Given his echocardiographic findings and official echo was done which confirmed a reduced ejection fraction of approximately 15 to 18%. The official ejection fraction has been also labeled at 20%. He was on higher dose milrinone but has been weaned to off. PA catheter was placed secondary to his shock state. Remarkably despite an IVC which was dilated, he had low right ventricular and pulmonary artery pressures. Currently he is on Connor-Synephrine which is been weaned from 300-100, he is on the perfunctory septic dose vasopressin of 0.03 units/min, he is on levo fed at 15 mics down from 40 mics. In addition epinephrine has been reduced from 10 mics to 2. His FiO2 is at 60%. Chest x-ray shows mixed interstitial alveolar pattern and effusions. Cultures have all been negative thus far however sputum has not returned and stool studies show Salmonella and Campylobacter. His platelets are now down to 8 from above 200,000. All heparin products have been stopped. Received 20 g of IVIG and his IV Ig sub-sets show a low IgG 1 of 41. Is not exhibiting any signs of bleeding but has a coalesced purpuric skin finding of his scalp ears and now legs. DIC panel has been sent. Unfortunately we are unable to obtain an [place] 13 panel to rule out TTP. Heparin-induced antibody panel was sent. Addition procalcitonin is unavailable here. In evaluation of the patient although he has improved he is still quite ill. I believe that there is a window of opportunity for transfer and a call was placed to [place] and [facility] for their assistance. They like asked are concerned about the distance and suggested that a closer institution may be beneficial and we have reached out to [facility] who will gladly accepted the patient for care. Family was made aware and have accepted the risk however this window of opportunity may be the last opportunity to assist in the care of this gentleman who we have been quite concerned about. His admission on Friday and his very unstable hemodynamics precluded any transfer and there were no flight paths available secondary to the weather. He has been accepted by Dr. Robertson at [facility]. Physical Exam Vital Signs: Temp Pulse Resp BP Pulse Ox 98.2 F 140 H 22 H 127/95 H 97 06/28/19 10:06 06/27/19 19:00 06/28/19 10:06 06/28/19 10:06 06/28/19 11:59 Intake & Output 06/27/19 06/28/19 06/29/19 06:59 06:59 06:59 Intake Total 8400.2 5523.4 1740.7 Output Total 1018 2046 65 Balance 7382.2 3477.4 1675.7 Weight 69.2 kg 77 kg 77 kg Exam: Please see today's progress notes Results Laboratory Results: 06/28/19 11:05 06/28/19 05:30 06/27/19 06/27/19 06/27/19 13:45 13:45 14:25 WBC RBC Hgb Hct MCV MCH MCHC RDW Plt Count Seg Neutrophils % Sodium 113.8 L* Potassium 3.4 L Chloride 85 L Carbon Dioxide 16 L Anion Gap 13 BUN 31 H Creatinine 2.90 H Est GFR ( Amer) 27 L Glucose 183 H Lactic Acid 3.2 H Calcium 5.5 L* Ionized Calcium Judy 0.87 L Phosphorus 3.9 Magnesium 1.9 Total Bilirubin AST Alkaline Phosphatase Ammonia Total Protein Albumin Ur Specific [place] 06/27/19 06/27/19 06/27/19 18:45 18:45 22:00 WBC RBC Hgb Hct MCV MCH MCHC RDW Plt Count Seg Neutrophils % Sodium 113.0 L* 110.9 L* Potassium 3.4 L 3.3 L Chloride 84 L 81 L Carbon Dioxide 16 L 17 L Anion Gap 13 13 BUN 31 H 31 H Creatinine 3.02 H 2.97 H Est GFR ( Amer) 26 L 27 L Glucose 153 H 184 H Lactic Acid 3.0 H Calcium 5.5 L* 5.7 L* Ionized Calcium Judy Phosphorus 4.0 4.0 Magnesium 1.7 1.7 Total Bilirubin AST Alkaline Phosphatase Ammonia Total Protein Albumin 1.4 L Ur Specific [place] 06/27/19 06/28/19 06/28/19 22:00 05:30 05:30 WBC 13.5 H RBC 3.23 L Hgb 9.7 L Hct 28.7 L MCV 89 MCH 30.0 MCHC 33.8 RDW 15.1 H Plt Count 8 L* Seg Neutrophils % Not Reportable Sodium 116.8 L* Potassium 3.4 L Chloride 87 L Carbon Dioxide 15 L Anion Gap 15 BUN 32 H Creatinine 2.98 H Est GFR ( Amer) 27 L Glucose 90 Lactic Acid 3.1 H Calcium 5.9 L* Ionized Calcium Judy Phosphorus Magnesium 1.7 Total Bilirubin 2.0 H AST 301 H Alkaline Phosphatase 68 Ammonia Total Protein 2.8 L Albumin 1.4 L Ur Specific [place] 06/28/19 06/28/19 06/28/19 09:05 09:05 11:05 WBC 12.2 H RBC 2.70 L Hgb 8.1 L Hct 24.0 L MCV 89 MCH 29.9 MCHC 33.6 RDW 14.9 H Plt Count 8 L* Seg Neutrophils % Not Reportable Sodium Potassium Chloride Carbon Dioxide Anion Gap BUN Creatinine Est GFR ( Amer) Glucose Lactic Acid Calcium Ionized Calcium Judy Phosphorus Magnesium Total Bilirubin AST Alkaline Phosphatase Ammonia < 8.7 L Total Protein Albumin Ur Specific [place] 1.006 06/24/19 20:30 Stool - Stool - Final 06/24/19 20:30 Stool - Stool Stool Culture - Final Salmonella Species Campylobacter Jejuni 06/24/19 06/24/19 18:57 18:57 Creatine Kinase 456 H CK-MB (CK-2) 6.04 H Troponin I 0.264 Impressions: Cervical Spine CT 06/24/19 19:03 IMPRESSION: No CT evidence for acute C-spine osseous abnormality. Degenerative changes, as above. Straightening of the normal lordosis may reflect muscle spasm/strain. Partial visualization of endotracheal and enteric tubes. The proximal portion of the enteric tube may be partially coiled in the pharynx. Correlate with physical exam. TECHNICAL DOCUMENTATION: Quality ID # [id number]: Final reports with documentation of one or more dose reduction techniques (e.g., Automated exposure control, adjustment of the mA and/or kV according to patient size, use of iterative reconstruction technique) copyright 2011 [employer]- All Rights Reserved Head CT 06/24/19 19:03 IMPRESSION: 1. No acute intracranial findings. 2. Redundant loops of nasogastric tube extends into the oropharynx and hypopharynx; consider repositioning KUB X-Ray 06/25/19 01:26 IMPRESSION: Support lines and tubes are in place as described above. Chest X-Ray 06/28/19 00:00 IMPRESSION: Tubes and lines in good positioning. Bilateral pleural effusions with alveolar and interstitial edema Plan Discharge Plan: To be transferred to [facility] Dr. Robertson Time Spent: Greater than 30 Minutes
[2019-06-28] MEDS ORDERED: CEFEPIME 1 GM/D5W RTU 1 GM/50 ML RTUPB IV SCH (13:00)
[2019-06-28 14:02] VITALS: BP 121/91
[2019-06-28 14:09] LABS: PATH REVIEW PATHOLOGIST REVIEWED
[2019-06-28 14:17] LABS: SEGMENTED NEUTROPHILS % (MAN) 57 % (42-78)
[2019-06-28 14:18] LABS: BAND NEUTROPHILS % (MANUAL) 16 % (3-5); METAMYELOCYTES % (MANUAL) 5 % (0-1); MYELOCYTES % (MANUAL) 2 % (0)
[2019-06-28 15:57] LABS: ARTERIAL BLOOD H2CO3 0.75 mmol/L (1.05-1.35); ARTERIAL BLOOD HCO3 14.8 mmol/L (20-24); ARTERIAL BLOOD O2 SATURATION 97.9 % (94-98); ARTERIAL BLOOD PCO2 24.8 mmHg (35-45); ARTERIAL BLOOD PH 7.39 (7.35-7.45); ARTERIAL BLOOD PO2 105.7 mmHg (80-100); ARTERIAL BLOOD TOTAL CO2 15.5 mmol/L (23-27)
[2019-06-28 15:58] LABS: ARTERIAL BLOOD FIO2 60%
[2019-06-28] MEDS: DEXTROSE 5%-WATER 1000 ML 1,000 ML with SODIUM BICARBONATE 150 MEQ IV PRN ×2 (16:06)
[2019-06-28] MEDS ORDERED: MICAFUNGIN SODIUM 100 MG in NORMAL SALINE 100 ML IV SCH (22:00)
[2019-06-29] MEDS ORDERED: MICAFUNGIN SODIUM INJ/PF 100 MG VIAL IV ONE (07:00)
== END 2019-06-28 16:43 | disposition short-term general hospital (02) | DRG 291 ==
LOC: ER 18:42 → EH 06-25 00:46 → ICU 06-25 02:05
PROVIDERS: ADMIT Internal Medicine Critical Care Medicine; ATTEND Internal Medicine Critical Care Medicine
PROC: 5A1945Z Respiratory Ventilation, 24-96 Consecutive Hours (ICD-10-PCS; principal; 2019-06-25)
PROC: 4A133B3 Monitoring of Arterial Pressure, Pulmonary, Percutaneous Approach (ICD-10-PCS; 2019-06-25)
PROC: 02HV33Z Insertion of Infusion Device into Superior Vena Cava, Percutaneous Approach (ICD-10-PCS; 2019-06-25)
PROC: 0BH17EZ Insertion of Endotracheal Airway into Trachea, Via Natural or Artificial Opening (ICD-10-PCS; 2019-06-25)
PROC: 30233R1 Transfusion of Nonautologous Platelets into Peripheral Vein, Percutaneous Approach (ICD-10-PCS; 2019-06-26)
DX: R57.0 Cardiogenic shock (principal); R09.2 Respiratory arrest; R40.20 Unspecified coma; E43 Unspecified severe protein-calorie malnutrition; A04.5 Campylobacter enteritis; E22.2 Syndrome of inappropriate secretion of antidiuretic hormone; N17.9 Acute kidney failure, unspecified; E87.2 Acidosis; D83.9 Common variable immunodeficiency, unspecified; A02.0 Salmonella enteritis; Z68.1 Body mass index [BMI] 19.9 or less, adult; R56.9 Unspecified convulsions; I42.0 Dilated cardiomyopathy; D69.6 Thrombocytopenia, unspecified; E88.09 Other disorders of plasma-protein metabolism, not elsewhere classified; J44.9 Chronic obstructive pulmonary disease, unspecified; I95.9 Hypotension, unspecified; E87.6 Hypokalemia; R68.0 Hypothermia, not associated with low environmental temperature; M19.90 Unspecified osteoarthritis, unspecified site; R19.7 Diarrhea, unspecified; D64.9 Anemia, unspecified; F12.10 Cannabis abuse, uncomplicated; Z88.2 Allergy status to sulfonamides; Z86.14 Personal history of Methicillin resistant Staphylococcus aureus infection; Z87.891 Personal history of nicotine dependence
CPT/HCPCS: 36415; 36430; 51702; 70450; 71045; 72125; 74018; 80048; 80053; 80307; 81001; 81002; 82024; 82040; 82140; 82330; 82533; 82550; 82553; 82570; 82784; 82787; 82803; 82947; 82962; 83010; 83605; 83615; 83735; 84100; 84132; 84133; 84156; 84300; 84484; 85025; 85379; 85384; 85610; 85730; 86022; 86160; 86162; 86701; 86900; 86901; 87040; 87045; 87070; 87077; 87186; 87205; 87324; 87449; 87536; 93005; 93010; 93306; 94002; 94003; 96361; 96365; 96366; 96368; 96375; 99291; 99292; C1751; C1887; C1894; J0171; J0456; J0610; J0692; J0744; J1561; J1644; J1720; J1815; J1953; J2060; J2185; J2248; J2250; J2260; J2370; J3010; J3370; J3411; J3475; J3480; J3490; J7030; J7050; J7060; J7121; P9035; P9041; P9047; Q9968; S0028